=== PATIENT | female | born 1980 | race Caucasian/White ===

== ENCOUNTER 2019-03-10 11:10 | Inpatient (IN) | payer OTHER ==
[2019-03-10 11:58] LABS: ADD MAN DIFF? NO
[2019-03-10 12:00] LABS: WHITE BLOOD COUNT 3.8 10^3/ul (4.8-10.8)
[2019-03-10 12:00] LABS: EOSINOPHILS # 0.1 10^3/ul (0.0-0.5); EOSINOPHILS % 1.8 % (0.0-7.0); HEMATOCRIT 25.6 % (37.0-47.0); HEMOGLOBIN 8.2 g/dl (12.0-16.0); LYMPHOCYTES # 1.5 10^3/ul (0.8-2.9); LYMPHOCYTES % 39.9 % (15.0-51.0); MEAN CORPUSCULAR HEMOGLOBIN 27.6 pg (29.0-33.0); MEAN CORPUSCULAR VOLUME 86.2 fl (82.0-101.0); MEAN PLATELET VOLUME 9.6 fl (7.4-10.4); MONOCYTE # 0.2 10^3/ul (0.3-0.9); MONOCYTES % 4.5 % (0.0-11.0); PLATELET COUNT 235 10^3/UL (140-415); RED BLOOD COUNT 2.97 10^6/ul (4.20-5.40); RED CELL DISTRIBUTION WIDTH 20.4 % (11.5-14.5)
[2019-03-10 12:20] LABS: ALANINE AMINOTRANSFERASE 34 IU/L (13-69); ALBUMIN 1.6 g/dl (3.3-4.9); ALBUMIN/GLOBULIN RATIO 0.29; ALKALINE PHOSPHATASE 190 IU/L (42-121); ANION GAP 1 (5-13); ASPARTATE AMINO TRANSFERASE 28 IU/L (15-46); BILIRUBIN,INDIRECT 0.3 mg/dl (0-1.1); BILIRUBIN,TOTAL 0.3 mg/dl (0.2-1.3); BLOOD UREA NITROGEN 28 mg/dl (7-20); CALCIUM 7.8 mg/dl (8.4-10.2); CARBON DIOXIDE 26 mmol/L (21-31); CHLORIDE 115 mmol/L (97-110); CREATININE 0.63 mg/dl (0.44-1.00); Estimated GFR > 60 mL/min (>60); GLUCOSE 74 mg/dl (70-220); LIPASE 10 U/L (23-300); POTASSIUM 3.8 mmol/L (3.5-5.1); SODIUM 142 mmol/L (135-144); TOTAL PROTEIN 7.1 g/dl (6.1-8.1)
[2019-03-10 12:58] LABS: ADD UMIC YES; UR ASCORBIC ACID NEGATIVE (NEGATIVE); UR BACTERIA MANY /HPF (NONE SEEN); UR BILIRUBIN (Dip) NEGATIVE (NEGATIVE); UR BLOOD (Dip) 1+ mg/dL (NEGATIVE); UR CLARITY CLOUDY (CLEAR); UR COLOR AMBER (YELLOW); UR GLUCOSE (Dip) NEGATIVE (NEGATIVE); UR KETONES (Dip) NEGATIVE (NEGATIVE); UR LEUKOCYTE ESTERASE (Dip) 3+ Leu/ul (NEGATIVE); UR MUCUS MODERATE /HPF (NONE SEEN); UR NITRITE (Dip) POSITIVE (NEGATIVE); UR NONSQUAMOUS EPITHELIAL CELL 1 /HPF (NONE SEEN); UR RBC 4 /HPF (0-5); UR SPECIFIC GRAVITY (Dip) 1.025 (1.003-1.030); UR TOTAL PROTEIN (Dip) 1+ mg/dl (NEGATIVE); UR UROBILINOGEN (Dip) 1+ mg/dL (NEGATIVE); UR WBC 106 /HPF (0-5)
[2019-03-10 13:23] LABS: VALPROATE < 10 ug/ml (50-100)
[2019-03-10] MEDS ORDERED: ACETAMINOPHEN 325 MG TAB PO (14:00)
[2019-03-10] MEDS ORDERED: BISACODYL 10 MG SUPP PR (14:00)
[2019-03-10] MEDS ORDERED: DOCUSATE SODIUM 100 MG CAP PO (14:00)
[2019-03-10] MEDS: CEFEPIME 1GM/50 ML (PMX) 50 ML IVPB (14:10)
[2019-03-10] MEDS: SODIUM CHLORIDE 0.9% 1L BAG IV* (14:10)
[2019-03-10] MEDS: CEFTRIAXONE 1 GM/50 ML (PMX) 50 ML IVPB (14:37)
[2019-03-10] MEDS: DEXTROSE 5%-0.45% NACL 1,000 ML IV (14:38)
[2019-03-10] MEDS: VANCOMYCIN 1 GM (PMX) 250 ML IVPB (15:50)
[2019-03-10] MEDS: VALPROIC ACID LIQUID CUP 250 MG/5 ML CUP PO ×2 (17:17→22:34)
[2019-03-10] MEDS: LEVETIRACETAM 500 MG TAB PO (21:02)
[2019-03-10] MEDS: MEMANTINE 10 MG TAB PO (21:02)
[2019-03-10] MEDS: FAMOTIDINE 20 MG TAB PO (21:02)
[2019-03-10] MEDS: QUETIAPINE 25 MG TAB PO (21:02)
[2019-03-10] MEDS: RISPERIDONE 0.25 MG TAB PO (21:02)
[2019-03-11] MEDS: CLINDAMYCIN 600 MG/D5W (PMX) 50 ML IVPB ×4 (00:39→17:25)
[2019-03-11 02:04] LABS: LACTIC ACID 1.6 mmol/L (0.5-2.0)
[2019-03-11] MEDS: DEXTROSE 5%-0.45% NACL 1,000 ML IV ×2 (03:05→05:32)
[2019-03-11 05:21] LABS: ADD MAN DIFF? NO
[2019-03-11 05:25] LABS: WHITE BLOOD COUNT 3.9 10^3/ul (4.8-10.8)
[2019-03-11 05:25] LABS: BASOPHIL # 0.1 10^3/ul (0.0-0.1); BASOPHILS % 1.3 % (0.0-2.0); EOSINOPHILS # 0.1 10^3/ul (0.0-0.5); EOSINOPHILS % 2.8 % (0.0-7.0); HEMATOCRIT 21.9 % (37.0-47.0); HEMOGLOBIN 7.2 g/dl (12.0-16.0); LYMPHOCYTES # 1.9 10^3/ul (0.8-2.9); LYMPHOCYTES % 49.9 % (15.0-51.0); MEAN CORPUSCULAR HGB CONC 32.9 g/dl (32.0-37.0); MEAN CORPUSCULAR VOLUME 85.2 fl (82.0-101.0); MEAN PLATELET VOLUME 9.7 fl (7.4-10.4); MONOCYTE # 0.3 10^3/ul (0.3-0.9); NEUTROPHIL # 1.5 10^3/ul (1.6-7.5); NEUTROPHILS % 38.2 % (39.0-77.0); PLATELET COUNT 208 10^3/UL (140-415); RED BLOOD COUNT 2.57 10^6/ul (4.20-5.40); RED CELL DISTRIBUTION WIDTH 20.6 % (11.5-14.5)
[2019-03-11] MEDS: VALPROIC ACID LIQUID CUP 250 MG/5 ML CUP PO ×3 (05:31→22:28)
[2019-03-11 05:32] LABS: POSITIVE DIFF @See below
[2019-03-11 05:58] LABS: IRON 29 ug/dl (35-150)
[2019-03-11 06:09] LABS: % IRON SATURATION 37 % SAT (22-52); TOTAL IRON BINDING CAPACITY 79 ug/dl (241-421)
[2019-03-11 06:38] LABS: ALANINE AMINOTRANSFERASE 33 IU/L (13-69); ALBUMIN 1.4 g/dl (3.3-4.9); ALBUMIN/GLOBULIN RATIO 0.29; ALKALINE PHOSPHATASE 155 IU/L (42-121); ANION GAP 3 (5-13); ASPARTATE AMINO TRANSFERASE 23 IU/L (15-46); BILIRUBIN,INDIRECT 0.2 mg/dl (0-1.1); BILIRUBIN,TOTAL 0.2 mg/dl (0.2-1.3); BLOOD UREA NITROGEN 23 mg/dl (7-20); CALCIUM 6.7 mg/dl (8.4-10.2); CARBON DIOXIDE 20 mmol/L (21-31); CHLORIDE 117 mmol/L (97-110); CREATININE 0.59 mg/dl (0.44-1.00); Estimated GFR > 60 mL/min (>60); GLUCOSE 74 mg/dl (70-220); MAGNESIUM 1.4 mg/dl (1.7-2.5); POTASSIUM 3.3 mmol/L (3.5-5.1); SODIUM 140 mmol/L (135-144); TOTAL PROTEIN 6.1 g/dl (6.1-8.1)
[2019-03-11 07:09] LABS: CREATINE KINASE < 20 IU/L (23-200)
[2019-03-11] MEDS: LEVETIRACETAM 500 MG TAB PO ×2 (08:46→21:00)
[2019-03-11] MEDS: FOLIC ACID 1 MG TAB PO (08:46)
[2019-03-11] MEDS: MEMANTINE 10 MG TAB PO ×2 (08:46→21:00)
[2019-03-11] MEDS: FAMOTIDINE 20 MG TAB PO ×2 (08:46→21:00)
[2019-03-11] MEDS: QUETIAPINE 25 MG TAB PO ×2 (08:46→21:00)
[2019-03-11] MEDS: THIAMINE 100 MG TAB PO (08:46)
[2019-03-11] MEDS: RISPERIDONE 0.25 MG TAB PO (08:47)
[2019-03-11] MEDS: ENOXAPARIN 40 MG/0.4 ML SYG SC (09:00)
[2019-03-11] MEDS: D5W-0.45 NACL + KCL 40 MEQ 1,000 ML IV ×2 (10:06→20:25)
[2019-03-11] MEDS: MAGNESIUM SULFATE 4 GM/100 ML 100 ML IVPB (10:07)
[2019-03-11 11:16] LABS: HEMATOCRIT 27.5 % (37.0-47.0); HEMOGLOBIN 8.9 g/dl (12.0-16.0); MEAN CORPUSCULAR HEMOGLOBIN 28.1 pg (29.0-33.0); MEAN CORPUSCULAR HGB CONC 32.4 g/dl (32.0-37.0); MEAN CORPUSCULAR VOLUME 86.8 fl (82.0-101.0); MEAN PLATELET VOLUME 9.2 fl (7.4-10.4); PLATELET COUNT 216 10^3/UL (140-415); RED BLOOD COUNT 3.17 10^6/ul (4.20-5.40); RED CELL DISTRIBUTION WIDTH 20.5 % (11.5-14.5)
[2019-03-11 11:16] LABS: WHITE BLOOD COUNT 6.8 10^3/ul (4.8-10.8)
[2019-03-11 11:20] LABS: ADD MAN DIFF? YES; POSITIVE DIFF @See below
[2019-03-11 12:28] LABS: ANISOCYTOSIS 1+ (0-0); BAND NEUTROPHILS #M 1.9 10^3/ul (0.0-0.6); BAND NEUTROPHILS % (M) 29 % (0-4); BASOPHILS % (M) 1 % (0-2); BURR CELLS 1+ (0-0); EOSINOPHILS % (M) 4 % (0-7); LYMPHOCYTES #M 1.1 10^3/ul (0.8-2.9); LYMPHOCYTES % (M) 17 % (15-51); METAMYELOCYTES %M 1 % (0-0); MONOCYTE #M 0.1 10^3/ul (0.3-0.9); MONOCYTES % (M) 2 % (0-11); OVALOCYTES 1+ (0-0); PLATELET ESTIMATE NORMAL; SEG NEUT #M 3.3 10^3/ul (1.6-7.5); SEGMENTED NEUTROPHILS (M) % 46 % (39-77); SMUDGE%M 171 % (0-0)
[2019-03-11] MEDS: SOD FERRIC GLUC COMPLX 125 MG in SOD CHLORIDE 0.9% 100 ML IVPB (13:11)
[2019-03-11] MEDS: CEFTRIAXONE 1 GM/50 ML (PMX) 50 ML IVPB (14:43)
[2019-03-11] MEDS: SOD CHLORIDE 0.9% 1,000 ML IV (14:52)
[2019-03-11] MEDS ORDERED: SOD CHLORIDE 0.9% 1,000 ML IV (15:00)
[2019-03-11] MEDS: ALBUMIN HUMAN 25% 100 ML IV (15:31)
[2019-03-11 18:43] LABS: OCCULT BLOOD STOOL NEGATIVE (NEGATIVE)
[2019-03-11] MEDS: ASCORBIC ACID 500 MG TAB PO (21:00)
[2019-03-11] MEDS: CEFEPIME 1GM/50 ML (PMX) 50 ML IVPB (21:08)
[2019-03-11] MEDS: BALSAM PERU/CASTOR OIL 60 GM TUBE TOP (21:12)
[2019-03-12] MEDS: CLINDAMYCIN 600 MG/D5W (PMX) 50 ML IVPB ×5 (00:05→23:12)
[2019-03-12] MEDS: D5W-0.45 NACL + KCL 40 MEQ 1,000 ML IV ×3 (04:36→16:34)
[2019-03-12 05:38] LABS: HEMATOCRIT 25.8 % (37.0-47.0); HEMOGLOBIN 8.3 g/dl (12.0-16.0); MEAN CORPUSCULAR HEMOGLOBIN 27.9 pg (29.0-33.0); MEAN CORPUSCULAR HGB CONC 32.2 g/dl (32.0-37.0); MEAN CORPUSCULAR VOLUME 86.6 fl (82.0-101.0); MEAN PLATELET VOLUME 9.7 fl (7.4-10.4); PLATELET COUNT 205 10^3/UL (140-415); RED BLOOD COUNT 2.98 10^6/ul (4.20-5.40); RED CELL DISTRIBUTION WIDTH 20.5 % (11.5-14.5)
[2019-03-12 05:38] LABS: WHITE BLOOD COUNT 3.2 10^3/ul (4.8-10.8)
[2019-03-12 05:47] LABS: POSITIVE DIFF @See below
[2019-03-12 05:48] LABS: ADD MAN DIFF? YES
[2019-03-12] MEDS: VALPROIC ACID LIQUID CUP 250 MG/5 ML CUP PO ×3 (06:00→21:43)
[2019-03-12 06:12] LABS: ALBUMIN 1.9 g/dl (3.3-4.9); ANION GAP 4 (5-13); BLOOD UREA NITROGEN 15 mg/dl (7-20); CALCIUM 6.8 mg/dl (8.4-10.2); CARBON DIOXIDE 24 mmol/L (21-31); CHLORIDE 108 mmol/L (97-110); CREATININE 0.58 mg/dl (0.44-1.00); GLUCOSE 61 mg/dl (70-220); MAGNESIUM 1.9 mg/dl (1.7-2.5); PHOSPHORUS 2.4 mg/dl (2.5-4.9); POTASSIUM 3.9 mmol/L (3.5-5.1); SODIUM 136 mmol/L (135-144)
[2019-03-12 07:50] LABS: ANISOCYTOSIS 1+ (0-0); BAND NEUTROPHILS #M 1.1 10^3/ul (0.0-0.6); BAND NEUTROPHILS % (M) 36 % (0-4); BASOPHILS % (M) 2 % (0-2); BURR CELLS 1+ (0-0); EOSINOPHILS % (M) 7 % (0-7); GIANT THROMBO% (M) 1 % (0-0); LYMPHOCYTES #M 0.2 10^3/ul (0.8-2.9); LYMPHOCYTES % (M) 9 % (15-51); MONOCYTE #M 0.2 10^3/ul (0.3-0.9); MONOCYTES % (M) 7 % (0-11); MYELOCYTES % (M) 1 % (0-0); PLATELET ESTIMATE NORMAL; POIKILOCYTOSIS 3+ (0-0); REACTIVE LYMPHOCYTES% (M) 1 % (0-0); SEG NEUT #M 1.2 10^3/ul (1.6-7.5); SEGMENTED NEUTROPHILS (M) % 37 % (39-77); SMUDGE%M 64 % (0-0)
[2019-03-12] MEDS: MEMANTINE 10 MG TAB PO ×2 (09:04→21:43)
[2019-03-12] MEDS: MULTIVITAMINS THERAPEUTIC TAB PO (09:05)
[2019-03-12] MEDS: FOLIC ACID 1 MG TAB PO (09:05)
[2019-03-12] MEDS: FAMOTIDINE 20 MG TAB PO ×2 (09:05→21:43)
[2019-03-12] MEDS: THIAMINE 100 MG TAB PO (09:05)
[2019-03-12] MEDS: QUETIAPINE 25 MG TAB PO ×2 (09:05→21:43)
[2019-03-12] MEDS: ASCORBIC ACID 500 MG TAB PO ×2 (09:05→21:43)
[2019-03-12] MEDS: LEVETIRACETAM 500 MG TAB PO ×2 (09:05→21:43)
[2019-03-12] MEDS: ZINC SULFATE 220 MG CAP PO (09:05)
[2019-03-12] MEDS: ENOXAPARIN 40 MG/0.4 ML SYG SC (09:06)
[2019-03-12] MEDS: COLLAGENASE 5 GM (UD JAR) TOP (09:12)
[2019-03-12] MEDS: BALSAM PERU/CASTOR OIL 60 GM TUBE TOP ×2 (09:12→21:44)
[2019-03-12] MEDS: CEFEPIME 1GM/50 ML (PMX) 50 ML IVPB ×2 (09:12→21:43)
[2019-03-12] MEDS: SOD FERRIC GLUC COMPLX 125 MG in SOD CHLORIDE 0.9% 100 ML IVPB (13:59)
[2019-03-13] MEDS: D5W-0.45 NACL + KCL 40 MEQ 1,000 ML IV ×2 (02:25→05:34)
[2019-03-13 05:05] LABS: ABNORMAL IP MESSAGE 1; HEMOGLOBIN 8.4 g/dl (12.0-16.0); MEAN CORPUSCULAR HEMOGLOBIN 27.9 pg (29.0-33.0); MEAN CORPUSCULAR HGB CONC 33.6 g/dl (32.0-37.0); MEAN CORPUSCULAR VOLUME 83.1 fl (82.0-101.0); MEAN PLATELET VOLUME 9.4 fl (7.4-10.4); PLATELET COUNT 185 10^3/UL (140-415); RED BLOOD COUNT 3.01 10^6/ul (4.20-5.40)
[2019-03-13 05:05] LABS: WHITE BLOOD COUNT 2.7 10^3/ul (4.8-10.8)
[2019-03-13 05:07] LABS: ADD MAN DIFF? YES; POSITIVE DIFF @See below
[2019-03-13 05:26] LABS: ALBUMIN 1.9 g/dl (3.3-4.9); ANION GAP 3 (5-13); BLOOD UREA NITROGEN 12 mg/dl (7-20); CARBON DIOXIDE 21 mmol/L (21-31); CHLORIDE 107 mmol/L (97-110); CREATININE 0.46 mg/dl (0.44-1.00); GLUCOSE 77 mg/dl (70-220); MAGNESIUM 1.6 mg/dl (1.7-2.5); PHOSPHORUS 2.5 mg/dl (2.5-4.9); POTASSIUM 4.8 mmol/L (3.5-5.1); SODIUM 131 mmol/L (135-144)
[2019-03-13] MEDS: CLINDAMYCIN 600 MG/D5W (PMX) 50 ML IVPB ×3 (05:35→17:17)
[2019-03-13] MEDS: VALPROIC ACID LIQUID CUP 250 MG/5 ML CUP PO ×3 (05:35→20:28)
[2019-03-13 08:19] LABS: ANISOCYTOSIS 3+ (0-0); BAND NEUTROPHILS #M 0.6 10^3/ul (0.0-0.6); BAND NEUTROPHILS % (M) 23 % (0-4); BASOPHIL #M 0.1 10^3/ul (0.0-0.0); BASOPHILS % (M) 6 % (0-2); BURR CELLS 2+ (0-0); EOSINOPHILS % (M) 3 % (0-7); GIANT THROMBO% (M) 2 % (0-0); LYMPHOCYTES #M 0.7 10^3/ul (0.8-2.9); LYMPHOCYTES % (M) 29 % (15-51); MICROCYTOSIS 1+ (0-0); MONOCYTE #M 0.1 10^3/ul (0.3-0.9); MONOCYTES % (M) 7 % (0-11); PLATELET ESTIMATE NORMAL; POIKILOCYTOSIS 3+ (0-0); POLYCHROMASIA 3+ (0-0); PROMYELOCYTES % (M) 1 % (0-0); SEG NEUT #M 0.9 10^3/ul (1.6-7.5); SEGMENTED NEUTROPHILS (M) % 31 % (39-77); SMUDGE%M 63 % (0-0); TARGET CELLS 1+ (0-0)
[2019-03-13] MEDS: CEFEPIME 1GM/50 ML (PMX) 50 ML IVPB ×2 (08:57→21:43)
[2019-03-13] MEDS: SOD CHLORIDE 0.9% 1,000 ML IV ×2 (08:57→21:20)
[2019-03-13] MEDS ORDERED: MUPIROCIN 2% 22 GM OINT TOP (09:00)
[2019-03-13] MEDS: THIAMINE 100 MG TAB PO (09:02)
[2019-03-13] MEDS: MEMANTINE 10 MG TAB PO ×2 (09:02→20:44)
[2019-03-13] MEDS: FAMOTIDINE 20 MG TAB PO ×2 (09:02→20:44)
[2019-03-13] MEDS: FOLIC ACID 1 MG TAB PO (09:02)
[2019-03-13] MEDS: LEVETIRACETAM 500 MG TAB PO ×2 (09:02→20:44)
[2019-03-13] MEDS: ASCORBIC ACID 500 MG TAB PO ×2 (09:03→20:44)
[2019-03-13] MEDS: MUPIROCIN 2% 22 GM OINT TOP ×2 (09:03→20:29)
[2019-03-13] MEDS: MULTIVITAMINS THERAPEUTIC TAB PO (09:03)
[2019-03-13] MEDS: COLLAGENASE 5 GM (UD JAR) TOP (09:03)
[2019-03-13] MEDS: BALSAM PERU/CASTOR OIL 60 GM TUBE TOP ×2 (09:03→20:29)
[2019-03-13] MEDS: ZINC SULFATE 220 MG CAP PO (09:03)
[2019-03-13] MEDS: QUETIAPINE 25 MG TAB PO ×2 (09:03→20:44)
[2019-03-13] MEDS: ENOXAPARIN 40 MG/0.4 ML SYG SC (09:05)
[2019-03-13] MEDS: MAGNESIUM SULFATE 2 GM/50 ML 50 ML IVPB (10:06)
[2019-03-13] MEDS: NACL 0.9% 3 ML SYG IV (12:36)
[2019-03-13] MEDS: METHYLPREDNISOLONE 40 MG INJ IV ×2 (12:47→20:28)
[2019-03-13] MEDS: SOD FERRIC GLUC COMPLX 125 MG in SOD CHLORIDE 0.9% 100 ML IVPB (14:19)
[2019-03-13] MEDS: SOD CHLORIDE 0.9% 500 ML IV (20:26)
[2019-03-14] MEDS: CLINDAMYCIN 600 MG/D5W (PMX) 50 ML IVPB ×4 (00:06→17:58)
[2019-03-14 05:27] LABS: ADD MAN DIFF? NO
[2019-03-14] MEDS: SOD CHLORIDE 0.9% 1,000 ML IV (05:38)
[2019-03-14 05:57] LABS: ALBUMIN 1.8 g/dl (3.3-4.9); ANION GAP 3 (5-13); BLOOD UREA NITROGEN 15 mg/dl (7-20); CALCIUM 6.9 mg/dl (8.4-10.2); CARBON DIOXIDE 18 mmol/L (21-31); CHLORIDE 108 mmol/L (97-110); CREATININE 0.47 mg/dl (0.44-1.00); GLUCOSE 90 mg/dl (70-220); PHOSPHORUS 4.2 mg/dl (2.5-4.9); POTASSIUM 4.8 mmol/L (3.5-5.1); SODIUM 129 mmol/L (135-144)
[2019-03-14 06:44] LABS: WHITE BLOOD COUNT 3.2 10^3/ul (4.8-10.8)
[2019-03-14 06:44] LABS: BASOPHILS % 0.6 % (0.0-2.0); EOSINOPHILS % 0.3 % (0.0-7.0); HEMATOCRIT 25.7 % (37.0-47.0); HEMOGLOBIN 8.6 g/dl (12.0-16.0); LYMPHOCYTES # 1.5 10^3/ul (0.8-2.9); LYMPHOCYTES % 47.3 % (15.0-51.0); MEAN CORPUSCULAR HEMOGLOBIN 27.8 pg (29.0-33.0); MEAN CORPUSCULAR HGB CONC 33.5 g/dl (32.0-37.0); MEAN CORPUSCULAR VOLUME 83.2 fl (82.0-101.0); MEAN PLATELET VOLUME 9.8 fl (7.4-10.4); MONOCYTE # 0.1 10^3/ul (0.3-0.9); MONOCYTES % 2.2 % (0.0-11.0); NEUTROPHIL # 1.5 10^3/ul (1.6-7.5); PLATELET COUNT 183 10^3/UL (140-415); RED BLOOD COUNT 3.09 10^6/ul (4.20-5.40); RED CELL DISTRIBUTION WIDTH 20.1 % (11.5-14.5)
[2019-03-14] MEDS: SOD CHLORIDE 0.9% 500 ML IV (08:49)
[2019-03-14] MEDS: LEVETIRACETAM 500 MG TAB PO ×2 (08:51→20:54)
[2019-03-14] MEDS: ZINC SULFATE 220 MG CAP PO (08:52)
[2019-03-14] MEDS: METHYLPREDNISOLONE 40 MG INJ IV ×2 (08:52→20:54)
[2019-03-14] MEDS: QUETIAPINE 25 MG TAB PO ×2 (08:52→20:54)
[2019-03-14] MEDS: VALPROIC ACID LIQUID CUP 250 MG/5 ML CUP PO ×2 (08:52→20:54)
[2019-03-14] MEDS: FAMOTIDINE 20 MG TAB PO ×2 (08:52→20:54)
[2019-03-14] MEDS: ASCORBIC ACID 500 MG TAB PO ×2 (08:52→20:55)
[2019-03-14] MEDS: MEMANTINE 10 MG TAB PO ×2 (08:52→20:54)
[2019-03-14] MEDS: MULTIVITAMINS THERAPEUTIC TAB PO (08:52)
[2019-03-14] MEDS: FOLIC ACID 1 MG TAB PO (08:52)
[2019-03-14] MEDS: THIAMINE 100 MG TAB PO (08:52)
[2019-03-14] MEDS: COLLAGENASE 5 GM (UD JAR) TOP (08:53)
[2019-03-14] MEDS: ENOXAPARIN 40 MG/0.4 ML SYG SC (08:53)
[2019-03-14] MEDS: BALSAM PERU/CASTOR OIL 60 GM TUBE TOP ×2 (08:54→20:55)
[2019-03-14] MEDS: MUPIROCIN 2% 22 GM OINT TOP ×2 (08:54→20:55)
[2019-03-14] MEDS: CEFEPIME 1GM/50 ML (PMX) 50 ML IVPB ×2 (09:50→20:55)
[2019-03-14] MEDS: DEXTROSE 5%-0.9% NACL 1,000 ML IV ×2 (09:51→21:50)
[2019-03-14] MEDS: MEGESTROL (40 MG/ML) 10ML CUP PO ×2 (12:32→20:54)
[2019-03-14] MEDS: ALBUMIN HUMAN 25% 100 ML IV ×2 (15:49→23:49)
[2019-03-14] MEDS: SOD FERRIC GLUC COMPLX 125 MG in SOD CHLORIDE 0.9% 100 ML IVPB (16:56)
[2019-03-15] MEDS: CLINDAMYCIN 600 MG/D5W (PMX) 50 ML IVPB ×4 (01:38→17:01)
[2019-03-15 06:19] LABS: ABNORMAL IP MESSAGE 1; MEAN CORPUSCULAR HEMOGLOBIN 27.6 pg (29.0-33.0); MEAN CORPUSCULAR HGB CONC 31.8 g/dl (32.0-37.0); MEAN CORPUSCULAR VOLUME 86.6 fl (82.0-101.0); MEAN PLATELET VOLUME 10.2 fl (7.4-10.4); PLATELET COUNT 172 10^3/UL (140-415); RED BLOOD COUNT 2.54 10^6/ul (4.20-5.40); RED CELL DISTRIBUTION WIDTH 20.5 % (11.5-14.5)
[2019-03-15 06:19] LABS: WHITE BLOOD COUNT 2.1 10^3/ul (4.8-10.8)
[2019-03-15 06:23] LABS: POSITIVE DIFF @See below
[2019-03-15 06:24] LABS: ADD MAN DIFF? YES; PATH REVIEW? YES
[2019-03-15] MEDS: ALBUMIN HUMAN 25% 100 ML IV (06:49)
[2019-03-15 07:03] LABS: ALBUMIN 2.2 g/dl (3.3-4.9); ANION GAP 6 (5-13); BLOOD UREA NITROGEN 17 mg/dl (7-20); CALCIUM 7.2 mg/dl (8.4-10.2); CARBON DIOXIDE 21 mmol/L (21-31); CHLORIDE 108 mmol/L (97-110); CREATININE 0.55 mg/dl (0.44-1.00); GLUCOSE 114 mg/dl (70-220); MAGNESIUM 1.7 mg/dl (1.7-2.5); PHOSPHORUS 3.2 mg/dl (2.5-4.9); POTASSIUM 4.1 mmol/L (3.5-5.1); SODIUM 135 mmol/L (135-144)
[2019-03-15] MEDS: LEVETIRACETAM 500 MG TAB PO ×2 (08:45→20:20)
[2019-03-15] MEDS: VALPROIC ACID LIQUID CUP 250 MG/5 ML CUP PO ×2 (08:45→20:20)
[2019-03-15] MEDS: ZINC SULFATE 220 MG CAP PO (08:45)
[2019-03-15] MEDS: MEGESTROL (40 MG/ML) 10ML CUP PO ×3 (08:45→20:20)
[2019-03-15] MEDS: MEMANTINE 10 MG TAB PO ×2 (08:46→20:20)
[2019-03-15] MEDS: FOLIC ACID 1 MG TAB PO (08:46)
[2019-03-15] MEDS: METHYLPREDNISOLONE 40 MG INJ IV ×2 (08:46→20:20)
[2019-03-15] MEDS: ASCORBIC ACID 500 MG TAB PO ×2 (08:46→20:20)
[2019-03-15] MEDS: QUETIAPINE 25 MG TAB PO ×2 (08:46→20:20)
[2019-03-15] MEDS: THIAMINE 100 MG TAB PO (08:46)
[2019-03-15] MEDS: BALSAM PERU/CASTOR OIL 60 GM TUBE TOP ×2 (08:46→20:21)
[2019-03-15] MEDS: COLLAGENASE 5 GM (UD JAR) TOP (08:46)
[2019-03-15] MEDS: MULTIVITAMINS THERAPEUTIC TAB PO (08:46)
[2019-03-15] MEDS: FAMOTIDINE 20 MG TAB PO ×2 (08:46→20:20)
[2019-03-15] MEDS: MUPIROCIN 2% 22 GM OINT TOP ×2 (08:47→20:21)
[2019-03-15] MEDS: ENOXAPARIN 40 MG/0.4 ML SYG SC (08:48)
[2019-03-15] MEDS: CEFEPIME 1GM/50 ML (PMX) 50 ML IVPB ×2 (09:08→21:13)
[2019-03-15 09:36] LABS: ANISOCYTOSIS 1+ (0-0); BAND NEUTROPHILS % (M) 4 % (0-4); BURR CELLS 1+ (0-0); GIANT THROMBO% (M) 1 % (0-0); LYMPHOCYTES #M 0.3 10^3/ul (0.8-2.9); LYMPHOCYTES % (M) 19 % (15-51); MONOCYTES % (M) 3 % (0-11); MYELOCYTES % (M) 1 % (0-0); PLATELET ESTIMATE NORMAL; POLYCHROMASIA 1+ (0-0); REACTIVE LYMPHOCYTES% (M) 1 % (0-0); SEG NEUT #M 1.5 10^3/ul (1.6-7.5); SEGMENTED NEUTROPHILS (M) % 72 % (39-77); SMUDGE%M 68 % (0-0)
[2019-03-15 11:23] LABS: HEMOGLOBIN 6.4 g/dl (12.0-16.0)
[2019-03-15] MEDS: DEXTROSE 5%-0.9% NACL 1,000 ML IV (11:26)
[2019-03-15] MEDS: MAGNESIUM SULFATE 2 GM/50 ML 50 ML IVPB (11:31)
[2019-03-15] MEDS: SOD CHLORIDE 0.9% 250 ML IV* (11:43)
[2019-03-15] MEDS: SOD FERRIC GLUC COMPLX 125 MG in SOD CHLORIDE 0.9% 100 ML IVPB (14:10)
[2019-03-15] MEDS: SOD CHLORIDE 0.9% 500 ML IV ×2 (15:21→20:13)
[2019-03-15 23:17] LABS: IMMEDIATE SPIN CROSSMATCH 1 2
[2019-03-16] MEDS: CLINDAMYCIN 600 MG/D5W (PMX) 50 ML IVPB ×4 (00:01→17:46)
[2019-03-16] MEDS: DEXTROSE 5%-0.9% NACL 1,000 ML IV ×2 (00:30→13:50)
[2019-03-16] MEDS: ATROPINE 1 MG/10 ML SYRINGE IV ×2 (00:43→04:42)
[2019-03-16 01:29] LABS: ANION GAP 5 (5-13); BLOOD UREA NITROGEN 13 mg/dl (7-20); CALCIUM 7.3 mg/dl (8.4-10.2); CARBON DIOXIDE 19 mmol/L (21-31); CHLORIDE 111 mmol/L (97-110); CREATININE 0.42 mg/dl (0.44-1.00); Estimated GFR > 60 mL/min (>60); GLUCOSE 87 mg/dl (70-220); POTASSIUM 3.9 mmol/L (3.5-5.1); SODIUM 135 mmol/L (135-144)
[2019-03-16] MEDS: MAGNESIUM SULFATE 2 GM/50 ML 50 ML IVPB (02:13)
[2019-03-16 06:26] LABS: ABNORMAL IP MESSAGE 1; HEMATOCRIT 32.1 % (37.0-47.0); HEMOGLOBIN 10.8 g/dl (12.0-16.0); MEAN CORPUSCULAR HGB CONC 33.6 g/dl (32.0-37.0); MEAN CORPUSCULAR VOLUME 83.2 fl (82.0-101.0); MEAN PLATELET VOLUME 9.7 fl (7.4-10.4); PLATELET COUNT 157 10^3/UL (140-415); RED BLOOD COUNT 3.86 10^6/ul (4.20-5.40); RED CELL DISTRIBUTION WIDTH 17.7 % (11.5-14.5)
[2019-03-16 06:26] LABS: WHITE BLOOD COUNT 1.9 10^3/ul (4.8-10.8)
[2019-03-16 06:33] LABS: ADD MAN DIFF? YES; POSITIVE DIFF @See below
[2019-03-16 06:50] LABS: ALBUMIN 2.2 g/dl (3.3-4.9); ANION GAP 4 (5-13); BLOOD UREA NITROGEN 12 mg/dl (7-20); CALCIUM 7.3 mg/dl (8.4-10.2); CARBON DIOXIDE 21 mmol/L (21-31); CHLORIDE 112 mmol/L (97-110); CREATININE 0.42 mg/dl (0.44-1.00); GLUCOSE 94 mg/dl (70-220); MAGNESIUM 2.6 mg/dl (1.7-2.5); PHOSPHORUS 1.9 mg/dl (2.5-4.9); POTASSIUM 3.7 mmol/L (3.5-5.1); SODIUM 137 mmol/L (135-144)
[2019-03-16 07:49] LABS: BAND NEUTROPHILS #M 0.2 10^3/ul (0.0-0.6); BAND NEUTROPHILS % (M) 11 % (0-4); BASOPHILS % (M) 1 % (0-2); BURR CELLS 1+ (0-0); HYPOCHROMASIA 1+ (0-0); LYMPHOCYTES #M 0.7 10^3/ul (0.8-2.9); LYMPHOCYTES % (M) 42 % (15-51); MONOCYTES % (M) 3 % (0-11); PLATELET ESTIMATE NORMAL; POLYCHROMASIA 1+ (0-0); REACTIVE LYMPHOCYTES% (M) 2 % (0-0); SEG NEUT #M 0.8 10^3/ul (1.6-7.5); SEGMENTED NEUTROPHILS (M) % 40 % (39-77); SMUDGE%M 20 % (0-0)
[2019-03-16] MEDS: FAMOTIDINE 20 MG TAB PO ×3 (09:00→22:24)
[2019-03-16] MEDS: MEMANTINE 10 MG TAB PO ×3 (09:00→22:24)
[2019-03-16] MEDS: CEFEPIME 1GM/50 ML (PMX) 50 ML IVPB ×2 (09:15→22:21)
[2019-03-16] MEDS: THIAMINE 100 MG TAB PO (09:18)
[2019-03-16] MEDS: ASCORBIC ACID 500 MG TAB PO ×2 (09:18→22:24)
[2019-03-16] MEDS: MULTIVITAMINS THERAPEUTIC TAB PO (09:18)
[2019-03-16] MEDS: QUETIAPINE 25 MG TAB PO ×2 (09:18→22:24)
[2019-03-16] MEDS: METHYLPREDNISOLONE 40 MG INJ IV (09:18)
[2019-03-16] MEDS: MEGESTROL (40 MG/ML) 10ML CUP PO ×5 (09:18→22:23)
[2019-03-16] MEDS: VALPROIC ACID LIQUID CUP 250 MG/5 ML CUP PO ×3 (09:18→22:23)
[2019-03-16] MEDS: FOLIC ACID 1 MG TAB PO (09:18)
[2019-03-16] MEDS: ZINC SULFATE 220 MG CAP PO (09:18)
[2019-03-16] MEDS: LEVETIRACETAM 500 MG TAB PO ×2 (09:19→22:23)
[2019-03-16] MEDS: COLLAGENASE 5 GM (UD JAR) TOP (09:19)
[2019-03-16] MEDS: MUPIROCIN 2% 22 GM OINT TOP ×2 (09:20→22:26)
[2019-03-16] MEDS: BALSAM PERU/CASTOR OIL 60 GM TUBE TOP ×2 (09:20→22:25)
[2019-03-16] MEDS: POTASSIUM PHOSPHATE 40 MEQ in SOD CHLORIDE 0.9% 250 ML IVPB (10:16)
[2019-03-16 12:30] LABS: VALPROATE 34 ug/ml (50-100)
[2019-03-17] MEDS: CLINDAMYCIN 600 MG/D5W (PMX) 50 ML IVPB ×4 (02:30→17:13)
[2019-03-17] MEDS: ATROPINE 1 MG/10 ML SYRINGE IV (02:31)
[2019-03-17] MEDS: DEXTROSE 5%-0.9% NACL 1,000 ML IV ×2 (03:10→15:36)
[2019-03-17] MEDS: VALPROIC ACID LIQUID CUP 250 MG/5 ML CUP PO (05:29)
[2019-03-17] MEDS: MEGESTROL (40 MG/ML) 10ML CUP PO ×3 (08:50→21:46)
[2019-03-17] MEDS: MULTIVITAMINS THERAPEUTIC TAB PO (08:50)
[2019-03-17] MEDS: ZINC SULFATE 220 MG CAP PO (08:50)
[2019-03-17] MEDS: QUETIAPINE 25 MG TAB PO ×2 (08:50→21:47)
[2019-03-17] MEDS: MEMANTINE 10 MG TAB PO ×2 (08:50→21:54)
[2019-03-17] MEDS: ASCORBIC ACID 500 MG TAB PO ×2 (08:50→21:47)
[2019-03-17] MEDS: FOLIC ACID 1 MG TAB PO (08:50)
[2019-03-17] MEDS: THIAMINE 100 MG TAB PO (08:50)
[2019-03-17] MEDS: LEVETIRACETAM 500 MG TAB PO ×2 (08:50→21:47)
[2019-03-17] MEDS: FAMOTIDINE 20 MG TAB PO ×2 (08:50→21:47)
[2019-03-17] MEDS: MUPIROCIN 2% 22 GM OINT TOP ×2 (08:51→21:55)
[2019-03-17] MEDS: COLLAGENASE 5 GM (UD JAR) TOP (08:51)
[2019-03-17] MEDS: CEFEPIME 1GM/50 ML (PMX) 50 ML IVPB ×2 (08:52→21:46)
[2019-03-17] MEDS: BALSAM PERU/CASTOR OIL 60 GM TUBE TOP ×2 (08:52→21:54)
[2019-03-17 16:40] LABS: WHITE BLOOD COUNT 2.2 10^3/ul (4.8-10.8)
[2019-03-17 16:40] LABS: ABNORMAL IP MESSAGE 1; HEMATOCRIT 31.7 % (37.0-47.0); HEMOGLOBIN 10.4 g/dl (12.0-16.0); MEAN CORPUSCULAR HGB CONC 32.8 g/dl (32.0-37.0); MEAN CORPUSCULAR VOLUME 85.4 fl (82.0-101.0); MEAN PLATELET VOLUME 9.4 fl (7.4-10.4); PLATELET COUNT 119 10^3/UL (140-415); RED BLOOD COUNT 3.71 10^6/ul (4.20-5.40); RED CELL DISTRIBUTION WIDTH 18.9 % (11.5-14.5)
[2019-03-17 16:41] LABS: ADD MAN DIFF? YES; POSITIVE DIFF @See below
[2019-03-17 16:55] LABS: ALBUMIN 1.9 g/dl (3.3-4.9); ANION GAP 1 (5-13); BLOOD UREA NITROGEN 16 mg/dl (7-20); CARBON DIOXIDE 21 mmol/L (21-31); CHLORIDE 113 mmol/L (97-110); CREATININE 0.42 mg/dl (0.44-1.00); GLUCOSE 68 mg/dl (70-220); MAGNESIUM 2.1 mg/dl (1.7-2.5); PHOSPHORUS 1.6 mg/dl (2.5-4.9); SODIUM 135 mmol/L (135-144)
[2019-03-17 17:01] LABS: PROTIME 19.1 Sec (11.9-14.9); PT RATIO 1.5
[2019-03-17 17:01] LABS: VALPROATE 13 ug/ml (50-100)
[2019-03-17 17:26] LABS: BAND NEUTROPHILS % (M) 3 % (0-4); BASOPHILS % (M) 2 % (0-2); BURR CELLS 3+ (0-0); GIANT THROMBO% (M) 1 % (0-0); LYMPHOCYTES #M 0.9 10^3/ul (0.8-2.9); LYMPHOCYTES % (M) 45 % (15-51); MONOCYTE #M 0.3 10^3/ul (0.3-0.9); MONOCYTES % (M) 14 % (0-11); OVALOCYTES 1+ (0-0); PLATELET ESTIMATE DECREASED; POIKILOCYTOSIS 3+ (0-0); REACTIVE LYMPHOCYTES% (M) 2 % (0-0); SEG NEUT #M 0.7 10^3/ul (1.6-7.5); SEGMENTED NEUTROPHILS (M) % 34 % (39-77); SMUDGE%M 98 % (0-0); TEAR DROP CELLS 1+ (0-0)
[2019-03-17] MEDS: SOD CHLORIDE 0.9% 100 ML (17:43)
[2019-03-17] MEDS: IOHEXOL 300MG/ML 150 ML BTL (17:43)
[2019-03-18] MEDS: CLINDAMYCIN 600 MG/D5W (PMX) 50 ML IVPB ×3 (01:38→11:21)
[2019-03-18 07:05] LABS: WHITE BLOOD COUNT 2.4 10^3/ul (4.8-10.8)
[2019-03-18 07:05] LABS: HEMATOCRIT 33.9 % (37.0-47.0); HEMOGLOBIN 10.7 g/dl (12.0-16.0); MEAN CORPUSCULAR HEMOGLOBIN 27.5 pg (29.0-33.0); MEAN CORPUSCULAR HGB CONC 31.6 g/dl (32.0-37.0); MEAN CORPUSCULAR VOLUME 87.1 fl (82.0-101.0); RED BLOOD COUNT 3.89 10^6/ul (4.20-5.40); RED CELL DISTRIBUTION WIDTH 19.2 % (11.5-14.5)
[2019-03-18 07:06] LABS: ABNORMAL IP MESSAGE 1; MEAN PLATELET VOLUME 9.7 fl (7.4-10.4); PLATELET COUNT 112 10^3/UL (140-415)
[2019-03-18 07:11] LABS: POSITIVE DIFF @See below
[2019-03-18 07:12] LABS: ADD MAN DIFF? NO
[2019-03-18 07:27] LABS: IRON 44 ug/dl (35-150)
[2019-03-18 07:29] LABS: LACTATE DEHYDROGENASE 364 IU/L (313-618)
[2019-03-18 07:29] LABS: URIC ACID 4.4 mg/dl (3.1-7.9)
[2019-03-18 07:33] LABS: ANION GAP 0 (5-13); BLOOD UREA NITROGEN 15 mg/dl (7-20); CALCIUM 7.1 mg/dl (8.4-10.2); CARBON DIOXIDE 25 mmol/L (21-31); CHLORIDE 112 mmol/L (97-110); CREATININE 0.44 mg/dl (0.44-1.00); Estimated GFR > 60 mL/min (>60); GLUCOSE 58 mg/dl (70-220); MAGNESIUM 1.9 mg/dl (1.7-2.5); PHOSPHORUS 1.4 mg/dl (2.5-4.9); POTASSIUM 4.1 mmol/L (3.5-5.1); SODIUM 137 mmol/L (135-144)
[2019-03-18 07:45] LABS: % IRON SATURATION 47 % SAT (22-52)
[2019-03-18 08:01] LABS: TOTAL IRON BINDING CAPACITY 94 ug/dl (241-421)
[2019-03-18 08:02] LABS: ALPHA FETOPROTEIN 1.26 IU/L (0.00-7.21)
[2019-03-18 08:52] LABS: FOLATE > 20.0 ng/ml (2.8-20.0)
[2019-03-18] MEDS: LEVETIRACETAM 500 MG TAB PO ×2 (09:00→21:37)
[2019-03-18] MEDS: ZINC SULFATE 220 MG CAP PO (09:00)
[2019-03-18] MEDS: MULTIVITAMINS THERAPEUTIC TAB PO (09:00)
[2019-03-18] MEDS: THIAMINE 100 MG TAB PO (09:00)
[2019-03-18] MEDS: MEGESTROL (40 MG/ML) 10ML CUP PO ×3 (09:00→21:38)
[2019-03-18] MEDS: FOLIC ACID 1 MG TAB PO (09:00)
[2019-03-18] MEDS: MEMANTINE 10 MG TAB PO ×2 (09:00→21:38)
[2019-03-18] MEDS: FAMOTIDINE 20 MG TAB PO ×2 (09:00→21:38)
[2019-03-18] MEDS: QUETIAPINE 25 MG TAB PO ×2 (09:00→21:38)
[2019-03-18] MEDS: DEXTROSE 5%-0.9% NACL 1,000 ML IV ×2 (09:00→23:02)
[2019-03-18] MEDS: ASCORBIC ACID 500 MG TAB PO ×2 (09:00→21:37)
[2019-03-18] MEDS: MUPIROCIN 2% 22 GM OINT TOP ×2 (09:01→21:39)
[2019-03-18] MEDS: CEFEPIME 1GM/50 ML (PMX) 50 ML IVPB ×2 (09:01→21:36)
[2019-03-18] MEDS: COLLAGENASE 5 GM (UD JAR) TOP (09:01)
[2019-03-18] MEDS: BALSAM PERU/CASTOR OIL 60 GM TUBE TOP ×2 (09:02→22:07)
[2019-03-18] MEDS: SODIUM PHOSPHATE 15 MMOL in SOD CHLORIDE 0.9% 250 ML IVPB (12:23)
[2019-03-18] MEDS: PROPOFOL 20 ML (23:01)
[2019-03-18] MEDS: GLYCOPYRROLATE 0.4 MG INJ (23:02)
[2019-03-18 23:29] LABS: CANCER ANTIGEN 125 94.5 U/ml (0.0-35.0)
[2019-03-18 23:46] LABS: HIV 1&2 ANTIBODY REACTIVE (NEGATIVE)
[2019-03-19 07:24] LABS: ABNORMAL IP MESSAGE 1; HEMATOCRIT 34.3 % (37.0-47.0); HEMOGLOBIN 11.3 g/dl (12.0-16.0); MEAN CORPUSCULAR HEMOGLOBIN 28.3 pg (29.0-33.0); MEAN CORPUSCULAR HGB CONC 32.9 g/dl (32.0-37.0); MEAN PLATELET VOLUME 10.5 fl (7.4-10.4); RED BLOOD COUNT 3.99 10^6/ul (4.20-5.40); RED CELL DISTRIBUTION WIDTH 18.5 % (11.5-14.5)
[2019-03-19 07:24] LABS: WHITE BLOOD COUNT 3.7 10^3/ul (4.8-10.8)
[2019-03-19 07:28] LABS: PLATELET COUNT 54 10^3/UL (140-415); POSITIVE DIFF @See below
[2019-03-19 07:29] LABS: ADD MAN DIFF? YES
[2019-03-19 07:52] LABS: ANION GAP 2 (5-13); BLOOD UREA NITROGEN 15 mg/dl (7-20); CALCIUM 6.9 mg/dl (8.4-10.2); CARBON DIOXIDE 22 mmol/L (21-31); CHLORIDE 112 mmol/L (97-110); CREATININE 0.41 mg/dl (0.44-1.00); Estimated GFR > 60 mL/min (>60); GLUCOSE 63 mg/dl (70-220); MAGNESIUM 1.6 mg/dl (1.7-2.5); PHOSPHORUS 1.8 mg/dl (2.5-4.9); POTASSIUM 4.1 mmol/L (3.5-5.1); SODIUM 136 mmol/L (135-144)
[2019-03-19] MEDS: CEFEPIME 1GM/50 ML (PMX) 50 ML IVPB ×2 (08:27→21:05)
[2019-03-19] MEDS: DEXTROSE 5%-0.9% NACL 1,000 ML IV (08:28)
[2019-03-19] MEDS: MUPIROCIN 2% 22 GM OINT TOP ×2 (08:28→21:37)
[2019-03-19] MEDS: COLLAGENASE 5 GM (UD JAR) TOP (08:29)
[2019-03-19] MEDS: BALSAM PERU/CASTOR OIL 60 GM TUBE TOP ×2 (09:00→21:37)
[2019-03-19] MEDS: FAMOTIDINE 20 MG TAB PO (09:00)
[2019-03-19] MEDS: ZINC SULFATE 220 MG CAP PO (09:00)
[2019-03-19] MEDS: MULTIVITAMINS THERAPEUTIC TAB PO (09:00)
[2019-03-19] MEDS: MEMANTINE 10 MG TAB PO ×2 (09:00→21:06)
[2019-03-19] MEDS: FOLIC ACID 1 MG TAB PO (09:00)
[2019-03-19] MEDS: MEGESTROL (40 MG/ML) 10ML CUP PO ×2 (09:00→13:00)
[2019-03-19] MEDS: ASCORBIC ACID 500 MG TAB PO ×2 (09:00→21:06)
[2019-03-19] MEDS: THIAMINE 100 MG TAB PO (09:00)
[2019-03-19] MEDS: QUETIAPINE 25 MG TAB PO ×2 (09:00→21:06)
[2019-03-19 10:30] LABS: ANISOCYTOSIS 1+ (0-0); BAND NEUTROPHILS #M 0.4 10^3/ul (0.0-0.6); BAND NEUTROPHILS % (M) 13 % (0-4); BASOPHIL #M 0.1 10^3/ul (0.0-0.0); BASOPHILS % (M) 5 % (0-2); EOSINOPHILS % (M) 3 % (0-7); LYMPHOCYTES #M 0.7 10^3/ul (0.8-2.9); LYMPHOCYTES % (M) 20 % (15-51); MICROCYTOSIS 1+ (0-0); MONOCYTE #M 0.3 10^3/ul (0.3-0.9); MONOCYTES % (M) 9 % (0-11); MYELOCYTES % (M) 1 % (0-0); PLATELET ESTIMATE DECREASED; PLATELET MORPHOLOGY COMMENT @See below; SEG NEUT #M 1.8 10^3/ul (1.6-7.5); SEGMENTED NEUTROPHILS (M) % 49 % (39-77); SMUDGE%M 48 % (0-0)
[2019-03-19 11:02] LABS: HAPTOGLOBIN 18 mg/dL (43-212)
[2019-03-19] MEDS: LEVETIRACETAM 500 MG TAB PO ×2 (11:34→21:06)
[2019-03-19 11:48] LABS: PROTEIN, TOTAL 6.5 g/dL (6.1-8.1)
[2019-03-19 15:47] LABS: ALBUMIN 2.1 g/dL (3.8-4.8); ALPHA-1-GLOBULINS 0.2 g/dL (0.2-0.3); ALPHA-2-GLOBULINS 0.4 g/dL (0.5-0.9); BETA 2 GLOBULINS 0.5 g/dL (0.2-0.5); BETA GLOBULINS 0.3 g/dL (0.4-0.6); GAMMA GLOBULINS 3.2 g/dL (0.8-1.7)
[2019-03-19 20:32] LABS: ERYTHROPOIETIN 2.9 mIU/mL (2.6-18.5)
[2019-03-20] MEDS: LANSOPRAZOLE 15 MG CAP GTB (06:14)
[2019-03-20 08:09] LABS: ADD MAN DIFF? NO
[2019-03-20 08:19] LABS: BASOPHIL # 0.1 10^3/ul (0.0-0.1); BASOPHILS % 1.6 % (0.0-2.0); EOSINOPHILS # 0.1 10^3/ul (0.0-0.5); EOSINOPHILS % 2.5 % (0.0-7.0); HEMATOCRIT 30.5 % (37.0-47.0); HEMOGLOBIN 10.1 g/dl (12.0-16.0); LYMPHOCYTES # 1.4 10^3/ul (0.8-2.9); LYMPHOCYTES % 37.8 % (15.0-51.0); MEAN CORPUSCULAR HEMOGLOBIN 28.5 pg (29.0-33.0); MEAN CORPUSCULAR HGB CONC 33.1 g/dl (32.0-37.0); MEAN CORPUSCULAR VOLUME 85.9 fl (82.0-101.0); MONOCYTE # 0.4 10^3/ul (0.3-0.9); MONOCYTES % 10.1 % (0.0-11.0); NEUTROPHIL # 1.7 10^3/ul (1.6-7.5); NEUTROPHILS % 47.2 % (39.0-77.0); PLATELET COUNT 129 10^3/UL (140-415); RED BLOOD COUNT 3.55 10^6/ul (4.20-5.40); RED CELL DISTRIBUTION WIDTH 18.3 % (11.5-14.5)
[2019-03-20 08:19] LABS: WHITE BLOOD COUNT 3.7 10^3/ul (4.8-10.8)
[2019-03-20 08:31] LABS: ANION GAP 2 (5-13); BLOOD UREA NITROGEN 17 mg/dl (7-20); CARBON DIOXIDE 23 mmol/L (21-31); CHLORIDE 112 mmol/L (97-110); CREATININE 0.42 mg/dl (0.44-1.00); Estimated GFR > 60 mL/min (>60); GLUCOSE 73 mg/dl (70-220); MAGNESIUM 1.8 mg/dl (1.7-2.5); PHOSPHORUS 1.2 mg/dl (2.5-4.9); SODIUM 137 mmol/L (135-144)
[2019-03-20] MEDS: LEVETIRACETAM 500 MG TAB PEG ×2 (09:00→20:47)
[2019-03-20] MEDS: CEFEPIME 1GM/50 ML (PMX) 50 ML IVPB ×2 (09:00→20:47)
[2019-03-20] MEDS: FOLIC ACID 1 MG TAB PO (09:00)
[2019-03-20] MEDS: ZINC SULFATE 220 MG CAP PO (09:01)
[2019-03-20] MEDS: MULTIVITAMINS THERAPEUTIC TAB PO (09:01)
[2019-03-20] MEDS: THIAMINE 100 MG TAB PO (09:01)
[2019-03-20] MEDS: COLLAGENASE 5 GM (UD JAR) TOP (09:01)
[2019-03-20] MEDS: QUETIAPINE 25 MG TAB PO ×2 (09:01→20:47)
[2019-03-20] MEDS: ASCORBIC ACID 500 MG TAB PEG ×2 (09:01→20:48)
[2019-03-20] MEDS: MEMANTINE 10 MG TAB PO ×2 (09:07→20:48)
[2019-03-20] MEDS: BALSAM PERU/CASTOR OIL 60 GM TUBE TOP ×2 (09:07→20:49)
[2019-03-20 10:32] LABS: CA27.29 120 U/mL (<38)
[2019-03-20] MEDS: NEUTRA-PHOS 250 MG PACKET PEG (14:25)
[2019-03-21] MEDS: LANSOPRAZOLE 15 MG CAP GTB (06:18)
[2019-03-21 07:03] LABS: ADD MAN DIFF? NO
[2019-03-21 07:09] LABS: WHITE BLOOD COUNT 3.6 10^3/ul (4.8-10.8)
[2019-03-21 07:09] LABS: BASOPHIL # 0.1 10^3/ul (0.0-0.1); BASOPHILS % 1.4 % (0.0-2.0); EOSINOPHILS # 0.1 10^3/ul (0.0-0.5); HEMATOCRIT 29.3 % (37.0-47.0); HEMOGLOBIN 9.8 g/dl (12.0-16.0); LYMPHOCYTES # 1.2 10^3/ul (0.8-2.9); LYMPHOCYTES % 33.1 % (15.0-51.0); MEAN CORPUSCULAR HEMOGLOBIN 28.3 pg (29.0-33.0); MEAN CORPUSCULAR HGB CONC 33.4 g/dl (32.0-37.0); MEAN CORPUSCULAR VOLUME 84.7 fl (82.0-101.0); MEAN PLATELET VOLUME 9.7 fl (7.4-10.4); MONOCYTE # 0.3 10^3/ul (0.3-0.9); MONOCYTES % 9.4 % (0.0-11.0); NEUTROPHIL # 1.9 10^3/ul (1.6-7.5); NEUTROPHILS % 52.8 % (39.0-77.0); PLATELET COUNT 115 10^3/UL (140-415); RED BLOOD COUNT 3.46 10^6/ul (4.20-5.40); RED CELL DISTRIBUTION WIDTH 17.8 % (11.5-14.5)
[2019-03-21 07:10] LABS: RETICULOCYTE COUNT # 0.024 X10^6 (0.020-0.110); RETICULOCYTE COUNT % 0.7 % (0.5-1.5)
[2019-03-21 07:10] LABS: RETICULOCYTE RBC 3.36
[2019-03-21 07:35] LABS: ANION GAP 1 (5-13); BLOOD UREA NITROGEN 15 mg/dl (7-20); CARBON DIOXIDE 23 mmol/L (21-31); CHLORIDE 109 mmol/L (97-110); CREATININE 0.33 mg/dl (0.44-1.00); Estimated GFR > 60 mL/min (>60); GLUCOSE 88 mg/dl (70-220); MAGNESIUM 1.7 mg/dl (1.7-2.5); PHOSPHORUS 0.9 mg/dl (2.5-4.9); POTASSIUM 4.2 mmol/L (3.5-5.1); SODIUM 133 mmol/L (135-144)
[2019-03-21 07:39] LABS: BILIRUBIN,INDIRECT 0.4 mg/dl (0-1.1); BILIRUBIN,TOTAL 0.4 mg/dl (0.2-1.3)
[2019-03-21 08:04] LABS: HEPATITIS B SURFACE ANTIGEN NEGATIVE (NEGATIVE)
[2019-03-21] MEDS: COLLAGENASE 5 GM (UD JAR) TOP (08:36)
[2019-03-21] MEDS: ASCORBIC ACID 500 MG TAB PEG ×2 (08:36→21:05)
[2019-03-21] MEDS: MEMANTINE 10 MG TAB PO ×2 (08:36→21:05)
[2019-03-21] MEDS: THIAMINE 100 MG TAB PO (08:37)
[2019-03-21] MEDS: LEVETIRACETAM 500 MG TAB PEG ×2 (08:38→21:05)
[2019-03-21] MEDS: QUETIAPINE 25 MG TAB PO ×2 (08:38→21:06)
[2019-03-21] MEDS: MULTIVITAMINS THERAPEUTIC TAB PO (08:38)
[2019-03-21] MEDS: ZINC SULFATE 220 MG CAP PO (08:39)
[2019-03-21] MEDS: FOLIC ACID 1 MG TAB PO (08:39)
[2019-03-21] MEDS: BALSAM PERU/CASTOR OIL 60 GM TUBE TOP ×2 (08:39→21:06)
[2019-03-21] MEDS: EMTRICITABINE/TENOFOVIR TAB PO (12:19)
[2019-03-21] MEDS: NEUTRA-PHOS 250 MG PACKET PO (12:19)
[2019-03-21] MEDS: VALPROIC ACID LIQUID CUP 250 MG/5 ML CUP PEG (21:05)
[2019-03-21] MEDS: LAMIVUDINE/ZIDOVUDINE TAB PO (21:05)
[2019-03-22] MEDS: LANSOPRAZOLE 15 MG CAP GTB (05:46)
[2019-03-22 06:05] LABS: WHITE BLOOD COUNT 3.3 10^3/ul (4.8-10.8)
[2019-03-22 06:05] LABS: HEMATOCRIT 28.3 % (37.0-47.0); HEMOGLOBIN 9.3 g/dl (12.0-16.0); MEAN CORPUSCULAR HEMOGLOBIN 28.4 pg (29.0-33.0); MEAN CORPUSCULAR HGB CONC 32.9 g/dl (32.0-37.0); MEAN CORPUSCULAR VOLUME 86.3 fl (82.0-101.0); MEAN PLATELET VOLUME 10.1 fl (7.4-10.4); PLATELET COUNT 139 10^3/UL (140-415); RED BLOOD COUNT 3.28 10^6/ul (4.20-5.40); RED CELL DISTRIBUTION WIDTH 17.7 % (11.5-14.5)
[2019-03-22 06:08] LABS: ADD MAN DIFF? YES; POSITIVE DIFF @See below
[2019-03-22 07:02] LABS: ANION GAP 1 (5-13); BLOOD UREA NITROGEN 13 mg/dl (7-20); CALCIUM 6.9 mg/dl (8.4-10.2); CARBON DIOXIDE 25 mmol/L (21-31); CHLORIDE 107 mmol/L (97-110); CREATININE 0.32 mg/dl (0.44-1.00); Estimated GFR > 60 mL/min (>60); GLUCOSE 87 mg/dl (70-220); MAGNESIUM 1.7 mg/dl (1.7-2.5); POTASSIUM 4.4 mmol/L (3.5-5.1); SODIUM 133 mmol/L (135-144)
[2019-03-22] MEDS: FOLIC ACID 1 MG TAB PO (09:06)
[2019-03-22] MEDS: LEVETIRACETAM 500 MG TAB PEG ×2 (09:06→20:19)
[2019-03-22] MEDS: LAMIVUDINE/ZIDOVUDINE TAB PO ×2 (09:06→20:19)
[2019-03-22] MEDS: QUETIAPINE 25 MG TAB PO ×2 (09:06→20:19)
[2019-03-22] MEDS: MULTIVITAMINS THERAPEUTIC TAB PO (09:06)
[2019-03-22] MEDS: THIAMINE 100 MG TAB PO (09:06)
[2019-03-22] MEDS: ASCORBIC ACID 500 MG TAB PEG ×2 (09:06→20:19)
[2019-03-22] MEDS: ZINC SULFATE 220 MG CAP PO (09:06)
[2019-03-22] MEDS: MEMANTINE 10 MG TAB PO ×2 (09:07→20:19)
[2019-03-22] MEDS: EMTRICITABINE/TENOFOVIR TAB PO (09:07)
[2019-03-22] MEDS: VALPROIC ACID LIQUID CUP 250 MG/5 ML CUP PEG ×2 (09:07→20:19)
[2019-03-22] MEDS: COLLAGENASE 5 GM (UD JAR) TOP (09:08)
[2019-03-22] MEDS: BALSAM PERU/CASTOR OIL 60 GM TUBE TOP ×2 (09:08→20:20)
[2019-03-22 12:36] LABS: LYMPHOCYTE - % CD4 (HELPER) 10 % (30-61); LYMPHOCYTE - %CD8 (SUPPRESSOR) 80 % (12-42); LYMPHOCYTE - ABSOLUTE 1225 cells/uL (850-3900); LYMPHOCYTE - ABSOLUTE CD4 124 cells/uL (490-1740); LYMPHOCYTE - ABSOLUTE CD8 985 cells/uL (180-1170); LYMPHOCYTE - CD4/CD8 RATIO 0.13 (0.86-5.00)
[2019-03-22] MEDS: NEUTRA-PHOS 250 MG PACKET PEG (12:37)
[2019-03-22 13:20] LABS: ANISOCYTOSIS 1+ (0-0); BAND NEUTROPHILS #M 0.9 10^3/ul (0.0-0.6); BAND NEUTROPHILS % (M) 28 % (0-4); BASOPHILS % (M) 1 % (0-2); EOSINOPHILS % (M) 4 % (0-7); GIANT THROMBO% (M) 4 % (0-0); LYMPHOCYTES #M 0.6 10^3/ul (0.8-2.9); LYMPHOCYTES % (M) 20 % (15-51); MONOCYTE #M 0.1 10^3/ul (0.3-0.9); MONOCYTES % (M) 5 % (0-11); MYELOCYTES % (M) 1 % (0-0); PLATELET ESTIMATE NORMAL; POIKILOCYTOSIS 3+ (0-0); POLYCHROMASIA 1+ (0-0); REACTIVE LYMPHOCYTES% (M) 1 % (0-0); SEG NEUT #M 1.3 10^3/ul (1.6-7.5); SEGMENTED NEUTROPHILS (M) % 40 % (39-77); SMUDGE%M 50 % (0-0)
[2019-03-23] MEDS: LANSOPRAZOLE 15 MG CAP GTB (06:16)
[2019-03-23 06:43] LABS: HEMATOCRIT 27.7 % (37.0-47.0); HEMOGLOBIN 9.1 g/dl (12.0-16.0); MEAN CORPUSCULAR HEMOGLOBIN 28.3 pg (29.0-33.0); MEAN CORPUSCULAR HGB CONC 32.9 g/dl (32.0-37.0); MEAN CORPUSCULAR VOLUME 86.3 fl (82.0-101.0); PLATELET COUNT 150 10^3/UL (140-415); RED BLOOD COUNT 3.21 10^6/ul (4.20-5.40); RED CELL DISTRIBUTION WIDTH 17.9 % (11.5-14.5)
[2019-03-23 06:43] LABS: WHITE BLOOD COUNT 3.5 10^3/ul (4.8-10.8)
[2019-03-23 07:14] LABS: VALPROATE 20 ug/ml (50-100)
[2019-03-23 07:16] LABS: ADD MAN DIFF? YES; ANION GAP 1 (5-13); BLOOD UREA NITROGEN 13 mg/dl (7-20); CALCIUM 6.7 mg/dl (8.4-10.2); CARBON DIOXIDE 26 mmol/L (21-31); CHLORIDE 106 mmol/L (97-110); Estimated GFR > 60 mL/min (>60); GLUCOSE 81 mg/dl (70-220); MAGNESIUM 1.8 mg/dl (1.7-2.5); PHOSPHORUS 1.4 mg/dl (2.5-4.9); POSITIVE DIFF @See below; POTASSIUM 4.5 mmol/L (3.5-5.1); SODIUM 133 mmol/L (135-144)
[2019-03-23] MEDS: ZINC SULFATE 220 MG CAP PO (08:50)
[2019-03-23] MEDS: THIAMINE 100 MG TAB PO (08:50)
[2019-03-23] MEDS: MULTIVITAMINS THERAPEUTIC TAB PO (08:50)
[2019-03-23] MEDS: FOLIC ACID 1 MG TAB PO (08:50)
[2019-03-23] MEDS: QUETIAPINE 25 MG TAB PO ×2 (08:51→20:25)
[2019-03-23] MEDS: VALPROIC ACID LIQUID CUP 250 MG/5 ML CUP PEG ×2 (08:51→20:24)
[2019-03-23] MEDS: MEMANTINE 10 MG TAB PO ×2 (08:51→20:25)
[2019-03-23] MEDS: LEVETIRACETAM 500 MG TAB PEG ×2 (08:51→20:24)
[2019-03-23] MEDS: LAMIVUDINE/ZIDOVUDINE TAB PO ×2 (08:51→20:25)
[2019-03-23] MEDS: ASCORBIC ACID 500 MG TAB PEG ×2 (08:51→20:25)
[2019-03-23] MEDS: EMTRICITABINE/TENOFOVIR TAB PO (08:51)
[2019-03-23] MEDS: COLLAGENASE 5 GM (UD JAR) TOP (08:52)
[2019-03-23] MEDS: BALSAM PERU/CASTOR OIL 60 GM TUBE TOP ×2 (08:53→20:26)
[2019-03-23 10:09] LABS: ANISOCYTOSIS 2+ (0-0); BAND NEUTROPHILS #M 0.5 10^3/ul (0.0-0.6); BAND NEUTROPHILS % (M) 17 % (0-4); BASOPHILS % (M) 1 % (0-2); EOSINOPHILS % (M) 7 % (0-7); GIANT THROMBO% (M) 2 % (0-0); LYMPHOCYTES % (M) 29 % (15-51); MONOCYTE #M 0.2 10^3/ul (0.3-0.9); MONOCYTES % (M) 8 % (0-11); PLATELET ESTIMATE NORMAL; POIKILOCYTOSIS 1+ (0-0); POLYCHROMASIA 3+ (0-0); REACTIVE LYMPHOCYTES% (M) 2 % (0-0); SEG NEUT #M 1.3 10^3/ul (1.6-7.5); SEGMENTED NEUTROPHILS (M) % 36 % (39-77); SMUDGE%M 15 % (0-0)
[2019-03-23] MEDS: NEUTRA-PHOS 250 MG PACKET PO (10:41)
[2019-03-24] MEDS: LANSOPRAZOLE 15 MG CAP GTB (05:48)
[2019-03-24 06:24] LABS: WHITE BLOOD COUNT 4.8 10^3/ul (4.8-10.8)
[2019-03-24 06:24] LABS: HEMATOCRIT 29.4 % (37.0-47.0); HEMOGLOBIN 9.5 g/dl (12.0-16.0); MEAN CORPUSCULAR HEMOGLOBIN 28.3 pg (29.0-33.0); MEAN CORPUSCULAR HGB CONC 32.3 g/dl (32.0-37.0); MEAN CORPUSCULAR VOLUME 87.5 fl (82.0-101.0); MEAN PLATELET VOLUME 10.7 fl (7.4-10.4); PLATELET COUNT 175 10^3/UL (140-415); RED BLOOD COUNT 3.36 10^6/ul (4.20-5.40); RED CELL DISTRIBUTION WIDTH 17.7 % (11.5-14.5)
[2019-03-24 06:25] LABS: POSITIVE DIFF @See below
[2019-03-24 06:26] LABS: ADD MAN DIFF? YES
[2019-03-24 06:43] LABS: ANION GAP 0 (5-13); BLOOD UREA NITROGEN 16 mg/dl (7-20); CALCIUM 6.4 mg/dl (8.4-10.2); CARBON DIOXIDE 27 mmol/L (21-31); CHLORIDE 104 mmol/L (97-110); CREATININE 0.46 mg/dl (0.44-1.00); Estimated GFR > 60 mL/min (>60); GLUCOSE 74 mg/dl (70-220); MAGNESIUM 1.9 mg/dl (1.7-2.5); PHOSPHORUS 1.2 mg/dl (2.5-4.9); POTASSIUM 4.5 mmol/L (3.5-5.1); SODIUM 131 mmol/L (135-144)
[2019-03-24 08:09] LABS: BAND NEUTROPHILS % (M) 43 % (0-4); BURR CELLS 1+ (0-0); EOSINOPHILS % (M) 5 % (0-7); GIANT THROMBO% (M) 2 % (0-0); LYMPHOCYTES #M 0.3 10^3/ul (0.8-2.9); LYMPHOCYTES % (M) 7 % (15-51); MONOCYTE #M 0.2 10^3/ul (0.3-0.9); MONOCYTES % (M) 6 % (0-11); PLASMAC%(M) 1 % (0); PLATELET ESTIMATE NORMAL; POIKILOCYTOSIS 1+ (0-0); REACTIVE LYMPHOCYTES% (M) 2 % (0-0); SEG NEUT #M 1.8 10^3/ul (1.6-7.5); SEGMENTED NEUTROPHILS (M) % 36 % (39-77); SMUDGE%M 54 % (0-0)
[2019-03-24] MEDS: MAGNESIUM HYDROXIDE 30ML CUP PO (08:13)
[2019-03-24] MEDS: EMTRICITABINE/TENOFOVIR TAB PO (08:14)
[2019-03-24] MEDS: VALPROIC ACID LIQUID CUP 250 MG/5 ML CUP PEG ×2 (08:14→21:32)
[2019-03-24] MEDS: RISPERIDONE 0.25 MG TAB PO (08:14)
[2019-03-24] MEDS: LAMIVUDINE/ZIDOVUDINE TAB PO ×2 (08:14→21:34)
[2019-03-24] MEDS: ZINC SULFATE 220 MG CAP PO (08:14)
[2019-03-24] MEDS: QUETIAPINE 25 MG TAB PO ×2 (08:15→21:34)
[2019-03-24] MEDS: LEVETIRACETAM 500 MG TAB PEG ×2 (08:15→21:33)
[2019-03-24] MEDS: THIAMINE 100 MG TAB PO (08:15)
[2019-03-24] MEDS: ASCORBIC ACID 500 MG TAB PEG ×2 (08:15→21:34)
[2019-03-24] MEDS: MULTIVITAMINS THERAPEUTIC TAB PO (08:15)
[2019-03-24] MEDS: FOLIC ACID 1 MG TAB PO (08:16)
[2019-03-24] MEDS: COLLAGENASE 5 GM (UD JAR) TOP ×2 (08:18→16:24)
[2019-03-24] MEDS: BALSAM PERU/CASTOR OIL 60 GM TUBE TOP ×2 (08:19→16:24)
[2019-03-24] MEDS: MEMANTINE 10 MG TAB PO ×2 (08:36→21:33)
[2019-03-24] MEDS: FLUCONAZOLE 100 MG TAB PO ×2 (12:00→14:15)
[2019-03-24] MEDS: AZITHROMYCIN 600 MG TAB PO ×2 (12:00→14:15)
[2019-03-24] MEDS: TRIMETHOPRIM/SULFAMETHOX (DS) TAB PO (14:15)
[2019-03-24] MEDS: ACYCLOVIR 400 MG TAB PO (21:33)
[2019-03-24] MEDS: SOD CHLORIDE 0.9% 1,000 ML IV (22:54)
[2019-03-25 05:35] LABS: ADD MAN DIFF? NO
[2019-03-25 05:43] LABS: BASOPHILS % 0.8 % (0.0-2.0); EOSINOPHILS # 0.1 10^3/ul (0.0-0.5); EOSINOPHILS % 2.3 % (0.0-7.0); HEMATOCRIT 26.5 % (37.0-47.0); HEMOGLOBIN 8.8 g/dl (12.0-16.0); LYMPHOCYTES # 1.5 10^3/ul (0.8-2.9); LYMPHOCYTES % 38.2 % (15.0-51.0); MEAN CORPUSCULAR HEMOGLOBIN 28.9 pg (29.0-33.0); MEAN CORPUSCULAR HGB CONC 33.2 g/dl (32.0-37.0); MEAN CORPUSCULAR VOLUME 86.9 fl (82.0-101.0); MEAN PLATELET VOLUME 9.9 fl (7.4-10.4); MONOCYTE # 0.3 10^3/ul (0.3-0.9); NEUTROPHILS % 51.4 % (39.0-77.0); PLATELET COUNT 177 10^3/UL (140-415); RED BLOOD COUNT 3.05 10^6/ul (4.20-5.40); RED CELL DISTRIBUTION WIDTH 17.5 % (11.5-14.5)
[2019-03-25 05:43] LABS: WHITE BLOOD COUNT 3.9 10^3/ul (4.8-10.8)
[2019-03-25] MEDS: LANSOPRAZOLE 15 MG CAP GTB (05:53)
[2019-03-25] MEDS: LAMIVUDINE/ZIDOVUDINE TAB PO (09:37)
[2019-03-25] MEDS: QUETIAPINE 25 MG TAB PO ×2 (09:37→21:44)
[2019-03-25] MEDS: THIAMINE 100 MG TAB PO (09:37)
[2019-03-25] MEDS: EMTRICITABINE/TENOFOVIR TAB PO (09:37)
[2019-03-25] MEDS: ZINC SULFATE 220 MG CAP PO (09:37)
[2019-03-25] MEDS: FLUCONAZOLE 100 MG TAB PO (09:37)
[2019-03-25] MEDS: MEMANTINE 10 MG TAB PO ×2 (09:37→22:00)
[2019-03-25] MEDS: FOLIC ACID 1 MG TAB PO (09:37)
[2019-03-25] MEDS: VALPROIC ACID LIQUID CUP 250 MG/5 ML CUP PEG ×2 (09:37→21:44)
[2019-03-25] MEDS: MULTIVITAMINS THERAPEUTIC TAB PO (09:37)
[2019-03-25] MEDS: TRIMETHOPRIM/SULFAMETHOX (DS) TAB PO (09:37)
[2019-03-25] MEDS: LEVETIRACETAM 500 MG TAB PEG ×2 (09:38→21:44)
[2019-03-25] MEDS: ASCORBIC ACID 500 MG TAB PEG ×2 (09:38→21:44)
[2019-03-25] MEDS: METOCLOPRAMIDE 10 MG INJ IV ×3 (09:42→18:27)
[2019-03-25] MEDS: ENOXAPARIN 40 MG/0.4 ML SYG SC (09:42)
[2019-03-25] MEDS: ACYCLOVIR 400 MG TAB PO ×2 (09:42→21:44)
[2019-03-25 10:26] LABS: CA27.29 86 U/mL (<38)
[2019-03-25] MEDS: SOD CHLORIDE 0.9% 1,000 ML IV (12:54)
[2019-03-25] MEDS: BALSAM PERU/CASTOR OIL 60 GM TUBE TOP ×2 (15:26→21:45)
[2019-03-25] MEDS: COLLAGENASE 5 GM (UD JAR) TOP (15:26)
[2019-03-25] MEDS: ZIDOVUDINE 100 MG CAP PO (22:01)
[2019-03-25 22:22] LABS: CANCER ANTIGEN 15-3 56 U/mL (<32)
[2019-03-26] MEDS: METOCLOPRAMIDE 10 MG INJ IV ×4 (00:21→18:57)
[2019-03-26] MEDS: SOD CHLORIDE 0.9% 1,000 ML IV ×2 (03:07→16:54)
[2019-03-26] MEDS ORDERED: MAGNESIUM HYDROXIDE 30ML CUP PEG (05:00)
[2019-03-26 05:53] LABS: ADD MAN DIFF? NO
[2019-03-26 05:59] LABS: WHITE BLOOD COUNT 3.7 10^3/ul (4.8-10.8)
[2019-03-26 05:59] LABS: BASOPHILS % 0.8 % (0.0-2.0); EOSINOPHILS # 0.1 10^3/ul (0.0-0.5); EOSINOPHILS % 1.6 % (0.0-7.0); HEMATOCRIT 28.7 % (37.0-47.0); HEMOGLOBIN 9.1 g/dl (12.0-16.0); LYMPHOCYTES # 1.3 10^3/ul (0.8-2.9); LYMPHOCYTES % 34.5 % (15.0-51.0); MEAN CORPUSCULAR HEMOGLOBIN 28.3 pg (29.0-33.0); MEAN CORPUSCULAR HGB CONC 31.7 g/dl (32.0-37.0); MEAN CORPUSCULAR VOLUME 89.1 fl (82.0-101.0); MEAN PLATELET VOLUME 10.6 fl (7.4-10.4); MONOCYTE # 0.3 10^3/ul (0.3-0.9); MONOCYTES % 8.6 % (0.0-11.0); NEUTROPHILS % 53.7 % (39.0-77.0); PLATELET COUNT 198 10^3/UL (140-415); RED BLOOD COUNT 3.22 10^6/ul (4.20-5.40); RED CELL DISTRIBUTION WIDTH 17.9 % (11.5-14.5)
[2019-03-26] MEDS: LANSOPRAZOLE 15 MG CAP GTB (06:08)
[2019-03-26 06:28] LABS: ALBUMIN 1.8 g/dl (3.3-4.9); ANION GAP 2 (5-13); BLOOD UREA NITROGEN 12 mg/dl (7-20); CALCIUM 6.2 mg/dl (8.4-10.2); CARBON DIOXIDE 20 mmol/L (21-31); CHLORIDE 113 mmol/L (97-110); CREATININE 0.43 mg/dl (0.44-1.00); GLUCOSE 58 mg/dl (70-220); PHOSPHORUS 0.8 mg/dl (2.5-4.9); POTASSIUM 3.7 mmol/L (3.5-5.1); SODIUM 135 mmol/L (135-144)
[2019-03-26] MEDS ORDERED: ZIDOVUDINE 100 MG CAP PEG (09:00)
[2019-03-26] MEDS: POTASSIUM PHOSPHATE 40 MEQ in SOD CHLORIDE 0.9% 250 ML IVPB (09:52)
[2019-03-26] MEDS: ENOXAPARIN 40 MG/0.4 ML SYG SC (09:57)
[2019-03-26] MEDS: LACTOBACILLUS RHAMNOSUS CAP PO ×3 (09:58→20:31)
[2019-03-26] MEDS: VALPROIC ACID LIQUID CUP 250 MG/5 ML CUP PEG ×2 (09:58→20:31)
[2019-03-26] MEDS: TRIMETHOPRIM/SULFAMETHOX (DS) TAB PEG (09:58)
[2019-03-26] MEDS: EMTRICITABINE/TENOFOVIR TAB PEG (09:58)
[2019-03-26] MEDS: ACYCLOVIR 400 MG TAB PEG ×2 (09:59→20:31)
[2019-03-26] MEDS: ZINC SULFATE 220 MG CAP PEG (09:59)
[2019-03-26] MEDS: LEVETIRACETAM 500 MG TAB PEG ×2 (09:59→20:31)
[2019-03-26] MEDS: THIAMINE 100 MG TAB PEG (09:59)
[2019-03-26] MEDS: FLUCONAZOLE 100 MG TAB PEG (10:00)
[2019-03-26] MEDS: FOLIC ACID 1 MG TAB PEG (10:00)
[2019-03-26] MEDS: MULTIVITAMINS THERAPEUTIC TAB GTB (10:00)
[2019-03-26] MEDS: QUETIAPINE 25 MG TAB PEG ×2 (10:00→20:31)
[2019-03-26] MEDS: MEMANTINE 10 MG TAB PEG ×2 (10:00→20:31)
[2019-03-26] MEDS: BALSAM PERU/CASTOR OIL 60 GM TUBE TOP ×2 (10:01→20:32)
[2019-03-26] MEDS: ASCORBIC ACID 500 MG TAB PEG ×2 (10:01→20:30)
[2019-03-26] MEDS: ALBUMIN HUMAN 25% 100 ML IV (14:16)
[2019-03-26] MEDS: ZIDOVUDINE 300 MG TAB PO ×2 (15:36→20:30)
[2019-03-26] MEDS: DEXTROSE 5%-0.9% NACL 1,000 ML IV (18:57)
[2019-03-26] MEDS ORDERED: GLUCOSE GEL 15 GRAM TUBE (20:17)
[2019-03-26] MEDS: GLUCOSE GEL 15 GRAM TUBE BUCCAL (20:20)
[2019-03-26] MEDS: DEXTROSE 10% 1,000 ML IV (20:53)
[2019-03-26] MEDS ORDERED: GLUCAGON 1 MG INJ IM (21:00)
[2019-03-26] MEDS ORDERED: GLUCOSE GEL 15 GRAM TUBE PO ×2 (21:00)
[2019-03-26] MEDS ORDERED: DEXTROSE 50% 50 ML SYRINGE IV (21:00)
[2019-03-26] MEDS: INSULIN ASPART [NOVOLOG] 3 ML PEN SC (21:00)
[2019-03-26 21:32] LABS: GLUCOSE 68 mg/dl (70-220)
[2019-03-27] MEDS: METOCLOPRAMIDE 10 MG INJ IV ×4 (00:12→17:35)
[2019-03-27] MEDS: INSULIN ASPART [NOVOLOG] 3 ML PEN SC ×6 (00:18→22:17)
[2019-03-27] MEDS: LANSOPRAZOLE 15 MG CAP GTB (05:23)
[2019-03-27 05:50] LABS: WHITE BLOOD COUNT 2.5 10^3/ul (4.8-10.8)
[2019-03-27 05:50] LABS: ABNORMAL IP MESSAGE 1; HEMATOCRIT 24.6 % (37.0-47.0); HEMOGLOBIN 8.2 g/dl (12.0-16.0); MEAN CORPUSCULAR HEMOGLOBIN 28.4 pg (29.0-33.0); MEAN CORPUSCULAR HGB CONC 33.3 g/dl (32.0-37.0); MEAN CORPUSCULAR VOLUME 85.1 fl (82.0-101.0); MEAN PLATELET VOLUME 10.3 fl (7.4-10.4); PLATELET COUNT 187 10^3/UL (140-415); RED BLOOD COUNT 2.89 10^6/ul (4.20-5.40); RED CELL DISTRIBUTION WIDTH 17.7 % (11.5-14.5)
[2019-03-27 06:04] LABS: ADD MAN DIFF? YES; POSITIVE DIFF @See below
[2019-03-27 06:16] LABS: ALBUMIN 1.8 g/dl (3.3-4.9); ANION GAP 2 (5-13); BLOOD UREA NITROGEN 5 mg/dl (7-20); CALCIUM 6.3 mg/dl (8.4-10.2); CARBON DIOXIDE 19 mmol/L (21-31); CHLORIDE 110 mmol/L (97-110); CREATININE 0.35 mg/dl (0.44-1.00); GLUCOSE 109 mg/dl (70-220); MAGNESIUM 1.9 mg/dl (1.7-2.5); POTASSIUM 3.8 mmol/L (3.5-5.1); SODIUM 131 mmol/L (135-144)
[2019-03-27 06:18] LABS: PHOSPHORUS < 0.5 mg/dl (2.5-4.9)
[2019-03-27] MEDS: DEXTROSE 10% 1,000 ML IV (06:34)
[2019-03-27] MEDS: LEVETIRACETAM 500 MG TAB PEG ×2 (08:36→20:56)
[2019-03-27] MEDS: ENOXAPARIN 40 MG/0.4 ML SYG SC (08:39)
[2019-03-27] MEDS: ACYCLOVIR 400 MG TAB PEG ×2 (08:40→20:56)
[2019-03-27] MEDS: MEMANTINE 10 MG TAB PEG ×2 (08:40→20:56)
[2019-03-27] MEDS: QUETIAPINE 25 MG TAB PEG ×2 (08:40→20:56)
[2019-03-27] MEDS: MULTIVITAMINS THERAPEUTIC TAB GTB (08:40)
[2019-03-27] MEDS: ASCORBIC ACID 500 MG TAB PEG ×2 (08:40→20:56)
[2019-03-27] MEDS: THIAMINE 100 MG TAB PEG (08:40)
[2019-03-27] MEDS: FLUCONAZOLE 100 MG TAB PEG (08:41)
[2019-03-27] MEDS: ZINC SULFATE 220 MG CAP PEG (08:41)
[2019-03-27] MEDS: VALPROIC ACID LIQUID CUP 250 MG/5 ML CUP PEG ×2 (08:41→20:56)
[2019-03-27] MEDS: LACTOBACILLUS RHAMNOSUS CAP PO ×3 (08:41→20:56)
[2019-03-27] MEDS: TRIMETHOPRIM/SULFAMETHOX (DS) TAB PEG (08:41)
[2019-03-27] MEDS: FOLIC ACID 1 MG TAB PEG (08:41)
[2019-03-27] MEDS: ZIDOVUDINE 300 MG TAB PO ×2 (08:41→20:56)
[2019-03-27] MEDS: EMTRICITABINE/TENOFOVIR TAB PEG (08:41)
[2019-03-27] MEDS: BALSAM PERU/CASTOR OIL 60 GM TUBE TOP ×2 (08:42→20:57)
[2019-03-27] MEDS: COLLAGENASE 5 GM (UD JAR) TOP (08:42)
[2019-03-27] MEDS: DEXTROSE 10%/0.45% NACL 1,000 ML IV ×4 (09:49→23:59)
[2019-03-27 10:09] LABS: ANISOCYTOSIS 1+ (0-0); BAND NEUTROPHILS #M 0.1 10^3/ul (0.0-0.6); BAND NEUTROPHILS % (M) 7 % (0-4); BURR CELLS 1+ (0-0); EOSINOPHILS % (M) 2 % (0-7); LYMPHOCYTES #M 0.9 10^3/ul (0.8-2.9); LYMPHOCYTES % (M) 39 % (15-51); MONOCYTE #M 0.1 10^3/ul (0.3-0.9); MONOCYTES % (M) 5 % (0-11); PLATELET ESTIMATE NORMAL; POIKILOCYTOSIS 2+ (0-0); POLYCHROMASIA 1+ (0-0); SEG NEUT #M 1.2 10^3/ul (1.6-7.5); SEGMENTED NEUTROPHILS (M) % 47 % (39-77); SMUDGE%M 25 % (0-0)
[2019-03-27] MEDS: POTASSIUM PHOSPHATE 40 MEQ in SOD CHLORIDE 0.9% 250 ML IVPB (10:40)
[2019-03-27 13:08] LABS: ALBUMIN 1.8 g/dl (3.3-4.9); ANION GAP 1 (5-13); BLOOD UREA NITROGEN 3 mg/dl (7-20); CALCIUM 6.3 mg/dl (8.4-10.2); CARBON DIOXIDE 20 mmol/L (21-31); CHLORIDE 111 mmol/L (97-110); CREATININE 0.33 mg/dl (0.44-1.00); PHOSPHORUS 1.9 mg/dl (2.5-4.9); POTASSIUM 4.4 mmol/L (3.5-5.1); SODIUM 132 mmol/L (135-144)
[2019-03-27 13:15] LABS: GLUCOSE 49 mg/dl (70-220)
[2019-03-27] MEDS: DEXTROSE 50% 50 ML SYRINGE IV ×2 (13:41→14:46)
[2019-03-27] MEDS: METHYLPREDNISOLONE 40 MG INJ IV ×2 (17:35→22:10)
[2019-03-28] MEDS: METOCLOPRAMIDE 10 MG INJ IV ×5 (00:25→23:26)
[2019-03-28] MEDS: INSULIN ASPART [NOVOLOG] 3 ML PEN SC ×6 (00:56→21:00)
[2019-03-28 05:07] LABS: WHITE BLOOD COUNT 1.3 10^3/ul (4.8-10.8)
[2019-03-28 05:07] LABS: ABNORMAL IP MESSAGE 1; HEMATOCRIT 25.8 % (37.0-47.0); HEMOGLOBIN 8.4 g/dl (12.0-16.0); MEAN CORPUSCULAR HEMOGLOBIN 28.1 pg (29.0-33.0); MEAN CORPUSCULAR HGB CONC 32.6 g/dl (32.0-37.0); MEAN CORPUSCULAR VOLUME 86.3 fl (82.0-101.0); MEAN PLATELET VOLUME 9.7 fl (7.4-10.4); PLATELET COUNT 207 10^3/UL (140-415); RED BLOOD COUNT 2.99 10^6/ul (4.20-5.40); RED CELL DISTRIBUTION WIDTH 17.6 % (11.5-14.5)
[2019-03-28 05:18] LABS: ALBUMIN 1.9 g/dl (3.3-4.9); ANION GAP 1 (5-13); CALCIUM 6.5 mg/dl (8.4-10.2); CARBON DIOXIDE 19 mmol/L (21-31); CHLORIDE 113 mmol/L (97-110); CREATININE 0.29 mg/dl (0.44-1.00); GLUCOSE 204 mg/dl (70-220); MAGNESIUM 1.9 mg/dl (1.7-2.5); PHOSPHORUS 0.6 mg/dl (2.5-4.9); POTASSIUM 4.1 mmol/L (3.5-5.1); SODIUM 133 mmol/L (135-144)
[2019-03-28 05:20] LABS: ADD MAN DIFF? YES; POSITIVE DIFF @See below
[2019-03-28] MEDS: DEXTROSE 10%/0.45% NACL 1,000 ML IV ×2 (05:24→09:14)
[2019-03-28 05:28] LABS: BLOOD UREA NITROGEN < 2 mg/dl (7-20)
[2019-03-28] MEDS: LANSOPRAZOLE 15 MG CAP GTB (05:55)
[2019-03-28] MEDS: METHYLPREDNISOLONE 40 MG INJ IV ×2 (05:55→12:45)
[2019-03-28] MEDS: FOLIC ACID 1 MG TAB PEG (09:04)
[2019-03-28] MEDS: ZINC SULFATE 220 MG CAP PEG (09:04)
[2019-03-28] MEDS: VALPROIC ACID LIQUID CUP 250 MG/5 ML CUP PEG ×2 (09:04→22:00)
[2019-03-28] MEDS: LEVETIRACETAM 500 MG TAB PEG (09:05)
[2019-03-28] MEDS: QUETIAPINE 25 MG TAB PEG ×2 (09:05→22:01)
[2019-03-28] MEDS: THIAMINE 100 MG TAB PEG (09:05)
[2019-03-28] MEDS: MEMANTINE 10 MG TAB PEG ×2 (09:05→22:00)
[2019-03-28] MEDS: ZIDOVUDINE 300 MG TAB PO ×2 (09:05→22:00)
[2019-03-28] MEDS: ASCORBIC ACID 500 MG TAB PEG ×2 (09:05→22:00)
[2019-03-28] MEDS: EMTRICITABINE/TENOFOVIR TAB PEG (09:05)
[2019-03-28] MEDS: LACTOBACILLUS RHAMNOSUS CAP PO ×3 (09:05→22:00)
[2019-03-28] MEDS: COLLAGENASE 5 GM (UD JAR) TOP (09:06)
[2019-03-28] MEDS: FLUCONAZOLE 100 MG TAB PEG (09:06)
[2019-03-28] MEDS: ACYCLOVIR 400 MG TAB PEG ×2 (09:06→22:00)
[2019-03-28] MEDS: BALSAM PERU/CASTOR OIL 60 GM TUBE TOP ×2 (09:06→22:02)
[2019-03-28] MEDS: MULTIVITAMINS THERAPEUTIC TAB GTB (09:06)
[2019-03-28] MEDS: TRIMETHOPRIM/SULFAMETHOX (DS) TAB PEG (09:06)
[2019-03-28] MEDS: ENOXAPARIN 40 MG/0.4 ML SYG SC (09:09)
[2019-03-28 10:54] LABS: ANISOCYTOSIS 2+ (0-0); BAND NEUTROPHILS % (M) 3 % (0-4); BURR CELLS 3+ (0-0); GIANT THROMBO% (M) 14 % (0-0); LYMPHOCYTES #M 0.5 10^3/ul (0.8-2.9); LYMPHOCYTES % (M) 41 % (15-51); MONOCYTES % (M) 2 % (0-11); PLATELET ESTIMATE NORMAL; POIKILOCYTOSIS 3+ (0-0); POLYCHROMASIA 3+ (0-0); REACTIVE LYMPHOCYTES% (M) 2 % (0-0); SEG NEUT #M 0.7 10^3/ul (1.6-7.5); SEGMENTED NEUTROPHILS (M) % 53 % (39-77); SMUDGE%M 52 % (0-0)
[2019-03-28] MEDS: POTASSIUM PHOSPHATE 40 MEQ in SOD CHLORIDE 0.9% 250 ML IVPB ×2 (11:35→22:25)
[2019-03-28] MEDS: LEVETIRACETAM (100 MG/ML) 5ML CUP GTB ×2 (12:43→22:00)
[2019-03-28] MEDS: DEXTROSE 5%-0.45% NACL 1,000 ML IV (15:52)
[2019-03-28] MEDS ORDERED: LEVETIRACETAM (100 MG/ML) 5ML CUP GTB (21:00)
[2019-03-29] MEDS: INSULIN ASPART [NOVOLOG] 3 ML PEN SC ×7 (01:00→23:40)
[2019-03-29] MEDS: DEXTROSE 5%-0.45% NACL 1,000 ML IV ×3 (02:20→16:25)
[2019-03-29] MEDS: RISPERIDONE 0.25 MG TAB PEG ×2 (03:40→21:29)
[2019-03-29 06:05] LABS: ABNORMAL IP MESSAGE 1; HEMATOCRIT 28.7 % (37.0-47.0); HEMOGLOBIN 9.6 g/dl (12.0-16.0); MEAN CORPUSCULAR HEMOGLOBIN 28.4 pg (29.0-33.0); MEAN CORPUSCULAR HGB CONC 33.4 g/dl (32.0-37.0); MEAN CORPUSCULAR VOLUME 84.9 fl (82.0-101.0); MEAN PLATELET VOLUME 10.2 fl (7.4-10.4); PLATELET COUNT 122 10^3/UL (140-415); RED BLOOD COUNT 3.38 10^6/ul (4.20-5.40); RED CELL DISTRIBUTION WIDTH 17.9 % (11.5-14.5)
[2019-03-29 06:05] LABS: WHITE BLOOD COUNT 2.4 10^3/ul (4.8-10.8)
[2019-03-29 06:10] LABS: POSITIVE DIFF @See below
[2019-03-29 06:11] LABS: ADD MAN DIFF? YES
[2019-03-29] MEDS: LANSOPRAZOLE 15 MG CAP GTB (06:32)
[2019-03-29] MEDS: METOCLOPRAMIDE 10 MG INJ IV ×4 (06:32→23:28)
[2019-03-29 06:43] LABS: ANION GAP 3 (5-13); CALCIUM 6.6 mg/dl (8.4-10.2); CARBON DIOXIDE 18 mmol/L (21-31); CHLORIDE 114 mmol/L (97-110); CREATININE 0.31 mg/dl (0.44-1.00); GLUCOSE 100 mg/dl (70-220); MAGNESIUM 1.8 mg/dl (1.7-2.5); PHOSPHORUS 2.1 mg/dl (2.5-4.9); POTASSIUM 5.2 mmol/L (3.5-5.1); SODIUM 135 mmol/L (135-144)
[2019-03-29 06:54] LABS: BLOOD UREA NITROGEN < 2 mg/dl (7-20)
[2019-03-29] MEDS: DEXTROSE 10%/0.45% NACL 1,000 ML IV (07:41)
[2019-03-29] MEDS: COLLAGENASE 5 GM (UD JAR) TOP (08:19)
[2019-03-29] MEDS: BALSAM PERU/CASTOR OIL 60 GM TUBE TOP ×2 (08:20→21:33)
[2019-03-29] MEDS: VALPROIC ACID LIQUID CUP 250 MG/5 ML CUP PEG ×2 (08:24→21:28)
[2019-03-29] MEDS: ZIDOVUDINE 300 MG TAB PO ×2 (08:24→21:28)
[2019-03-29] MEDS: LACTOBACILLUS RHAMNOSUS CAP PO ×3 (08:25→21:28)
[2019-03-29] MEDS: ACYCLOVIR 400 MG TAB PEG ×2 (08:25→21:29)
[2019-03-29] MEDS: LEVETIRACETAM (100 MG/ML) 5ML CUP GTB ×2 (08:25→21:28)
[2019-03-29] MEDS: THIAMINE 100 MG TAB PEG (08:25)
[2019-03-29] MEDS: FLUCONAZOLE 100 MG TAB PEG (08:25)
[2019-03-29] MEDS: MULTIVITAMINS THERAPEUTIC TAB GTB (08:25)
[2019-03-29] MEDS: ASCORBIC ACID 500 MG TAB PEG ×2 (08:25→21:29)
[2019-03-29] MEDS: FOLIC ACID 1 MG TAB PEG (08:25)
[2019-03-29] MEDS: QUETIAPINE 25 MG TAB PEG ×2 (08:25→21:29)
[2019-03-29] MEDS: EMTRICITABINE/TENOFOVIR TAB PEG (08:25)
[2019-03-29] MEDS: ZINC SULFATE 220 MG CAP PEG (08:26)
[2019-03-29] MEDS: TRIMETHOPRIM/SULFAMETHOX (DS) TAB PEG (08:26)
[2019-03-29] MEDS: MEMANTINE 10 MG TAB PEG ×2 (08:26→21:28)
[2019-03-29] MEDS: ACETAMINOPHEN 325 MG TAB PEG (08:38)
[2019-03-29] MEDS: ENOXAPARIN 30 MG/0.3 ML SYG SC (08:40)
[2019-03-29 08:47] LABS: ANISOCYTOSIS 1+ (0-0); BAND NEUTROPHILS % (M) 1 % (0-4); BASOPHILS % (M) 1 % (0-2); BURR CELLS 2+ (0-0); LYMPHOCYTES #M 1.4 10^3/ul (0.8-2.9); LYMPHOCYTES % (M) 62 % (15-51); MONOCYTE #M 0.1 10^3/ul (0.3-0.9); MONOCYTES % (M) 6 % (0-11); PLASMAC%(M) 1 % (0); PLATELET ESTIMATE DECREASED; POIKILOCYTOSIS 1+ (0-0); SEG NEUT #M 0.7 10^3/ul (1.6-7.5); SEGMENTED NEUTROPHILS (M) % 29 % (39-77); SMUDGE%M 28 % (0-0)
[2019-03-29] MEDS: NEUTRA-PHOS 250 MG PACKET GTB (11:31)
[2019-03-29] MEDS: ALBUMIN HUMAN 25% 100 ML IV (16:25)
[2019-03-29] MEDS: LOPERAMIDE HCL 1 MG/5 ML LIQUID (10 ML UD CUP) GTB (21:28)
[2019-03-30] MEDS: METOCLOPRAMIDE 10 MG INJ IV ×3 (05:31→17:44)
[2019-03-30] MEDS: LANSOPRAZOLE 15 MG CAP GTB (05:31)
[2019-03-30] MEDS: DEXTROSE 50% 50 ML SYRINGE IV (05:35)
[2019-03-30] MEDS: INSULIN ASPART [NOVOLOG] 3 ML PEN SC ×3 (05:40→17:47)
[2019-03-30 05:58] LABS: HEMATOCRIT 22.3 % (37.0-47.0); HEMOGLOBIN 7.1 g/dl (12.0-16.0); MEAN CORPUSCULAR HGB CONC 31.8 g/dl (32.0-37.0); MEAN CORPUSCULAR VOLUME 87.8 fl (82.0-101.0); MEAN PLATELET VOLUME 9.5 fl (7.4-10.4); PLATELET COUNT 162 10^3/UL (140-415); RED BLOOD COUNT 2.54 10^6/ul (4.20-5.40); RED CELL DISTRIBUTION WIDTH 17.9 % (11.5-14.5)
[2019-03-30 05:58] LABS: WHITE BLOOD COUNT 2.9 10^3/ul (4.8-10.8)
[2019-03-30 06:00] LABS: ADD MAN DIFF? YES; POSITIVE DIFF @See below
[2019-03-30 06:30] LABS: ANION GAP 1 (5-13); BLOOD UREA NITROGEN 3 mg/dl (7-20); CARBON DIOXIDE 23 mmol/L (21-31); CHLORIDE 111 mmol/L (97-110); CREATININE 0.35 mg/dl (0.44-1.00); GLUCOSE 78 mg/dl (70-220); MAGNESIUM 1.9 mg/dl (1.7-2.5); PHOSPHORUS 1.2 mg/dl (2.5-4.9); POTASSIUM 4.5 mmol/L (3.5-5.1); SODIUM 135 mmol/L (135-144)
[2019-03-30] MEDS: DEXTROSE 5%-0.45% NACL 1,000 ML IV ×2 (06:41→19:10)
[2019-03-30 07:38] LABS: ANISOCYTOSIS 1+ (0-0); BAND NEUTROPHILS #M 0.1 10^3/ul (0.0-0.6); BAND NEUTROPHILS % (M) 4 % (0-4); BASOPHILS % (M) 1 % (0-2); BURR CELLS 1+ (0-0); EOSINOPHILS % (M) 5 % (0-7); LYMPHOCYTES #M 0.6 10^3/ul (0.8-2.9); LYMPHOCYTES % (M) 22 % (15-51); MONOCYTES % (M) 1 % (0-11); PLATELET ESTIMATE NORMAL; POIKILOCYTOSIS 1+ (0-0); SEG NEUT #M 1.9 10^3/ul (1.6-7.5); SEGMENTED NEUTROPHILS (M) % 67 % (39-77); SMUDGE%M 59 % (0-0)
[2019-03-30] MEDS: LEVETIRACETAM (100 MG/ML) 5ML CUP GTB ×2 (09:59→20:31)
[2019-03-30] MEDS: COLLAGENASE 5 GM (UD JAR) TOP (09:59)
[2019-03-30] MEDS: MEMANTINE 10 MG TAB PEG ×2 (10:00→20:27)
[2019-03-30] MEDS: ZIDOVUDINE 300 MG TAB PO ×2 (10:00→20:26)
[2019-03-30] MEDS: LACTOBACILLUS RHAMNOSUS CAP PO ×3 (10:00→20:26)
[2019-03-30] MEDS: VALPROIC ACID LIQUID CUP 250 MG/5 ML CUP PEG ×2 (10:00→20:30)
[2019-03-30] MEDS: TRIMETHOPRIM/SULFAMETHOX (DS) TAB PEG (10:00)
[2019-03-30] MEDS: EMTRICITABINE/TENOFOVIR TAB PEG (10:00)
[2019-03-30] MEDS: THIAMINE 100 MG TAB PEG (10:00)
[2019-03-30] MEDS: QUETIAPINE 25 MG TAB PEG ×2 (10:01→20:27)
[2019-03-30] MEDS: ZINC SULFATE 220 MG CAP PEG (10:01)
[2019-03-30] MEDS: FLUCONAZOLE 100 MG TAB PEG (10:01)
[2019-03-30] MEDS: MULTIVITAMINS THERAPEUTIC TAB GTB (10:01)
[2019-03-30] MEDS: ASCORBIC ACID 500 MG TAB PEG ×2 (10:01→20:26)
[2019-03-30] MEDS: ACYCLOVIR 400 MG TAB PEG ×2 (10:01→20:27)
[2019-03-30] MEDS: FOLIC ACID 1 MG TAB PEG (10:01)
[2019-03-30] MEDS: BALSAM PERU/CASTOR OIL 60 GM TUBE TOP ×2 (10:02→20:53)
[2019-03-30] MEDS: ENOXAPARIN 30 MG/0.3 ML SYG SC (10:20)
[2019-03-30] MEDS: POTASSIUM PHOSPHATE 40 MEQ in SOD CHLORIDE 0.9% 250 ML IVPB (10:23)
[2019-03-30 11:52] LABS: HEMATOCRIT 22.7 % (37.0-47.0); HEMOGLOBIN 7.3 g/dl (12.0-16.0)
[2019-03-30] MEDS: CEFEPIME 1GM/50 ML (PMX) 50 ML IVPB ×2 (12:26→20:31)
[2019-03-31] MEDS: DEXTROSE 5%-0.45% NACL 1,000 ML IV ×2 (01:27→17:48)
[2019-03-31] MEDS: METOCLOPRAMIDE 10 MG INJ IV ×2 (01:27→05:57)
[2019-03-31 05:30] LABS: ABNORMAL IP MESSAGE 1; HEMATOCRIT 22.4 % (37.0-47.0); HEMOGLOBIN 7.2 g/dl (12.0-16.0); MEAN CORPUSCULAR HEMOGLOBIN 28.1 pg (29.0-33.0); MEAN CORPUSCULAR HGB CONC 32.1 g/dl (32.0-37.0); MEAN CORPUSCULAR VOLUME 87.5 fl (82.0-101.0); MEAN PLATELET VOLUME 9.4 fl (7.4-10.4); PLATELET COUNT 150 10^3/UL (140-415); RED BLOOD COUNT 2.56 10^6/ul (4.20-5.40); RED CELL DISTRIBUTION WIDTH 17.9 % (11.5-14.5)
[2019-03-31 05:30] LABS: WHITE BLOOD COUNT 2.1 10^3/ul (4.8-10.8)
[2019-03-31 05:31] LABS: POSITIVE DIFF @See below
[2019-03-31 05:32] LABS: ADD MAN DIFF? YES
[2019-03-31] MEDS: LANSOPRAZOLE 15 MG CAP GTB (05:57)
[2019-03-31] MEDS: INSULIN ASPART [NOVOLOG] 3 ML PEN SC ×5 (05:58→23:20)
[2019-03-31 06:06] LABS: ALBUMIN 1.9 g/dl (3.3-4.9); ANION GAP 1 (5-13); BLOOD UREA NITROGEN 4 mg/dl (7-20); CARBON DIOXIDE 23 mmol/L (21-31); CHLORIDE 108 mmol/L (97-110); CREATININE 0.35 mg/dl (0.44-1.00); GLUCOSE 84 mg/dl (70-220); MAGNESIUM 1.8 mg/dl (1.7-2.5); PHOSPHORUS 1.6 mg/dl (2.5-4.9); POTASSIUM 4.8 mmol/L (3.5-5.1); SODIUM 132 mmol/L (135-144)
[2019-03-31] MEDS: ZIDOVUDINE 300 MG TAB PO ×2 (09:02→21:17)
[2019-03-31] MEDS: TRIMETHOPRIM/SULFAMETHOX (DS) TAB PEG (09:02)
[2019-03-31] MEDS: FLUCONAZOLE 100 MG TAB PEG (09:02)
[2019-03-31] MEDS: MULTIVITAMINS THERAPEUTIC TAB GTB (09:02)
[2019-03-31] MEDS: MEMANTINE 10 MG TAB PEG ×2 (09:02→21:17)
[2019-03-31] MEDS: THIAMINE 100 MG TAB PEG (09:02)
[2019-03-31] MEDS: QUETIAPINE 25 MG TAB PEG ×2 (09:03→21:17)
[2019-03-31] MEDS: ZINC SULFATE 220 MG CAP PEG (09:03)
[2019-03-31] MEDS: ACYCLOVIR 400 MG TAB PEG ×2 (09:03→21:17)
[2019-03-31] MEDS: LACTOBACILLUS RHAMNOSUS CAP PO ×3 (09:03→21:17)
[2019-03-31] MEDS: EMTRICITABINE/TENOFOVIR TAB PEG (09:03)
[2019-03-31] MEDS: ASCORBIC ACID 500 MG TAB PEG ×2 (09:03→21:17)
[2019-03-31] MEDS: LEVETIRACETAM (100 MG/ML) 5ML CUP GTB ×2 (09:03→21:17)
[2019-03-31] MEDS: FOLIC ACID 1 MG TAB PEG (09:03)
[2019-03-31] MEDS: VALPROIC ACID LIQUID CUP 250 MG/5 ML CUP PEG ×2 (09:04→21:17)
[2019-03-31] MEDS: BALSAM PERU/CASTOR OIL 60 GM TUBE TOP ×2 (09:05→21:37)
[2019-03-31] MEDS: COLLAGENASE 5 GM (UD JAR) TOP (09:05)
[2019-03-31] MEDS: ENOXAPARIN 30 MG/0.3 ML SYG SC (09:07)
[2019-03-31] MEDS: CEFEPIME 1GM/50 ML (PMX) 50 ML IVPB (09:15)
[2019-03-31] MEDS: MAGNESIUM OXIDE 400 MG TAB PEG (10:56)
[2019-03-31] MEDS: NEUTRA-PHOS 250 MG PACKET PO (11:49)
[2019-03-31] MEDS: AZITHROMYCIN 600 MG TAB GTB (11:49)
[2019-03-31] MEDS: MEROPENEM 1 GM/50ML(PMX) 50 ML IVPB ×2 (13:16→21:17)
[2019-04-01] MEDS: DEXTROSE 5%-0.45% NACL 1,000 ML IV ×2 (04:59→19:23)
[2019-04-01] MEDS: MEROPENEM 1 GM/50ML(PMX) 50 ML IVPB ×3 (05:02→21:11)
[2019-04-01] MEDS: LANSOPRAZOLE 15 MG CAP GTB (05:02)
[2019-04-01] MEDS: INSULIN ASPART [NOVOLOG] 3 ML PEN SC ×3 (05:07→18:00)
[2019-04-01 06:06] LABS: WHITE BLOOD COUNT 1.9 10^3/ul (4.8-10.8)
[2019-04-01 06:06] LABS: HEMATOCRIT 22.8 % (37.0-47.0); HEMOGLOBIN 7.4 g/dl (12.0-16.0); MEAN CORPUSCULAR HEMOGLOBIN 28.4 pg (29.0-33.0); MEAN CORPUSCULAR HGB CONC 32.5 g/dl (32.0-37.0); MEAN CORPUSCULAR VOLUME 87.4 fl (82.0-101.0); MEAN PLATELET VOLUME 9.3 fl (7.4-10.4); PLATELET COUNT 138 10^3/UL (140-415); RED BLOOD COUNT 2.61 10^6/ul (4.20-5.40)
[2019-04-01 06:07] LABS: ABNORMAL IP MESSAGE 1
[2019-04-01 06:08] LABS: ADD MAN DIFF? YES; POSITIVE DIFF @See below
[2019-04-01 06:31] LABS: ANION GAP 3 (5-13); BLOOD UREA NITROGEN 5 mg/dl (7-20); CALCIUM 7.1 mg/dl (8.4-10.2); CARBON DIOXIDE 25 mmol/L (21-31); CHLORIDE 105 mmol/L (97-110); CREATININE 0.31 mg/dl (0.44-1.00); Estimated GFR > 60 mL/min (>60); GLUCOSE 87 mg/dl (70-220); MAGNESIUM 1.8 mg/dl (1.7-2.5); PHOSPHORUS 2.1 mg/dl (2.5-4.9); POTASSIUM 4.5 mmol/L (3.5-5.1); SODIUM 133 mmol/L (135-144)
[2019-04-01] MEDS: MEMANTINE 10 MG TAB PEG ×2 (08:09→21:12)
[2019-04-01] MEDS: VALPROIC ACID LIQUID CUP 250 MG/5 ML CUP PEG ×2 (08:10→21:12)
[2019-04-01] MEDS: ZIDOVUDINE 300 MG TAB PO ×2 (08:10→21:11)
[2019-04-01] MEDS: EMTRICITABINE/TENOFOVIR TAB PEG (08:10)
[2019-04-01] MEDS: TRIMETHOPRIM/SULFAMETHOX (DS) TAB PEG (08:10)
[2019-04-01] MEDS: LACTOBACILLUS RHAMNOSUS CAP PO ×3 (08:10→21:11)
[2019-04-01] MEDS: ACYCLOVIR 400 MG TAB PEG ×2 (08:10→21:12)
[2019-04-01] MEDS: ASCORBIC ACID 500 MG TAB PEG ×2 (08:10→21:11)
[2019-04-01] MEDS: ZINC SULFATE 220 MG CAP PEG (08:10)
[2019-04-01] MEDS: MULTIVITAMINS THERAPEUTIC TAB GTB (08:10)
[2019-04-01] MEDS: FLUCONAZOLE 100 MG TAB PEG (08:10)
[2019-04-01] MEDS: FOLIC ACID 1 MG TAB PEG (08:10)
[2019-04-01] MEDS: QUETIAPINE 25 MG TAB PEG ×2 (08:10→21:12)
[2019-04-01] MEDS: LEVETIRACETAM (100 MG/ML) 5ML CUP GTB ×2 (08:10→21:12)
[2019-04-01] MEDS: THIAMINE 100 MG TAB PEG (08:11)
[2019-04-01] MEDS: BALSAM PERU/CASTOR OIL 60 GM TUBE TOP ×2 (08:16→21:17)
[2019-04-01] MEDS: COLLAGENASE 5 GM (UD JAR) TOP (08:16)
[2019-04-01] MEDS: ENOXAPARIN 30 MG/0.3 ML SYG SC (08:18)
[2019-04-01 09:10] LABS: ANISOCYTOSIS 1+ (0-0); BAND NEUTROPHILS #M 0.1 10^3/ul (0.0-0.6); BAND NEUTROPHILS % (M) 7 % (0-4); BASOPHILS % (M) 4 % (0-2); BURR CELLS 2+ (0-0); EOSINOPHILS % (M) 8 % (0-7); LYMPHOCYTES #M 0.7 10^3/ul (0.8-2.9); LYMPHOCYTES % (M) 37 % (15-51); MONOCYTES % (M) 1 % (0-11); OVALOCYTES 1+ (0-0); PLATELET ESTIMATE NORMAL; POIKILOCYTOSIS 2+ (0-0); POLYCHROMASIA 1+ (0-0); REACTIVE LYMPHOCYTES% (M) 3 % (0-0); SEG NEUT #M 0.8 10^3/ul (1.6-7.5); SEGMENTED NEUTROPHILS (M) % 40 % (39-77); SMUDGE%M 26 % (0-0)
[2019-04-01] MEDS: MAGNESIUM OXIDE 400 MG TAB NGT (13:20)
[2019-04-01] MEDS: NEUTRA-PHOS 250 MG PACKET PEG (15:00)
[2019-04-01] MEDS ORDERED: FILGRASTIM-AAFI 300 MCG/0.5 ML SYRINGE SC (19:00)
[2019-04-01] MEDS: FILGRASTIM-AAFI 300 MCG/0.5 ML SYRINGE SC (21:15)
[2019-04-02] MEDS: DEXTROSE 5%-0.45% NACL 1,000 ML IV ×2 (00:30→13:12)
[2019-04-02] MEDS: MEROPENEM 1 GM/50ML(PMX) 50 ML IVPB ×3 (05:44→21:10)
[2019-04-02] MEDS: LANSOPRAZOLE 15 MG CAP GTB (05:44)
[2019-04-02] MEDS: INSULIN ASPART [NOVOLOG] 3 ML PEN SC ×4 (05:45→17:16)
[2019-04-02] MEDS: THIAMINE 100 MG TAB PEG (09:40)
[2019-04-02] MEDS: FLUCONAZOLE 100 MG TAB PEG (09:40)
[2019-04-02] MEDS: EMTRICITABINE/TENOFOVIR TAB PEG (09:40)
[2019-04-02] MEDS: ZIDOVUDINE 300 MG TAB PO ×2 (09:40→20:44)
[2019-04-02] MEDS: LEVETIRACETAM (100 MG/ML) 5ML CUP GTB ×2 (09:40→20:37)
[2019-04-02] MEDS: FOLIC ACID 1 MG TAB PEG (09:40)
[2019-04-02] MEDS: ZINC SULFATE 220 MG CAP PEG (09:40)
[2019-04-02] MEDS: VALPROIC ACID LIQUID CUP 250 MG/5 ML CUP PEG ×2 (09:40→20:43)
[2019-04-02] MEDS: QUETIAPINE 25 MG TAB PEG ×2 (09:41→20:44)
[2019-04-02] MEDS: TRIMETHOPRIM/SULFAMETHOX (DS) TAB PEG (09:41)
[2019-04-02] MEDS: ACYCLOVIR 400 MG TAB PEG ×2 (09:41→20:44)
[2019-04-02] MEDS: BALSAM PERU/CASTOR OIL 60 GM TUBE TOP ×2 (09:41→20:48)
[2019-04-02] MEDS: ASCORBIC ACID 500 MG TAB PEG ×2 (09:41→20:44)
[2019-04-02] MEDS: COLLAGENASE 5 GM (UD JAR) TOP (09:42)
[2019-04-02] MEDS: ENOXAPARIN 30 MG/0.3 ML SYG SC (09:44)
[2019-04-02] MEDS: MEMANTINE 10 MG TAB PEG ×2 (09:52→20:44)
[2019-04-02] MEDS: MULTIVITAMINS THERAPEUTIC TAB GTB (09:52)
[2019-04-02] MEDS: LACTOBACILLUS RHAMNOSUS CAP PO ×3 (11:56→20:44)
[2019-04-02] MEDS: SOD CHLORIDE 0.9% 1,000 ML IV (14:36)
[2019-04-02] MEDS: FILGRASTIM 480 MCG INJ SC (17:19)
[2019-04-02] MEDS: MIDODRINE 2.5 MG TAB GTB (17:49)
[2019-04-03] MEDS: MEROPENEM 1 GM/50ML(PMX) 50 ML IVPB ×3 (05:39→23:14)
[2019-04-03] MEDS: INSULIN ASPART [NOVOLOG] 3 ML PEN SC ×4 (05:42→17:33)
[2019-04-03] MEDS: LANSOPRAZOLE 15 MG CAP GTB (05:42)
[2019-04-03 06:13] LABS: ABNORMAL IP MESSAGE 1; HEMATOCRIT 21.2 % (37.0-47.0); MEAN CORPUSCULAR HEMOGLOBIN 28.2 pg (29.0-33.0); MEAN CORPUSCULAR HGB CONC 31.6 g/dl (32.0-37.0); MEAN CORPUSCULAR VOLUME 89.1 fl (82.0-101.0); MEAN PLATELET VOLUME 9.1 fl (7.4-10.4); PLATELET COUNT 145 10^3/UL (140-415); RED BLOOD COUNT 2.38 10^6/ul (4.20-5.40); RED CELL DISTRIBUTION WIDTH 16.7 % (11.5-14.5)
[2019-04-03 06:13] LABS: WHITE BLOOD COUNT 3.9 10^3/ul (4.8-10.8)
[2019-04-03 06:34] LABS: ADD MAN DIFF? YES; HEMOGLOBIN 6.7 g/dl (12.0-16.0); POSITIVE DIFF @See below
[2019-04-03 06:54] LABS: ANION GAP 3 (5-13); BLOOD UREA NITROGEN 2 mg/dl (7-20); CALCIUM 7.6 mg/dl (8.4-10.2); CARBON DIOXIDE 27 mmol/L (21-31); CHLORIDE 105 mmol/L (97-110); CREATININE 0.31 mg/dl (0.44-1.00); Estimated GFR > 60 mL/min (>60); GLUCOSE 84 mg/dl (70-220); MAGNESIUM 1.6 mg/dl (1.7-2.5); PHOSPHORUS 1.8 mg/dl (2.5-4.9); POTASSIUM 4.7 mmol/L (3.5-5.1); SODIUM 135 mmol/L (135-144)
[2019-04-03 07:41] LABS: BAND NEUTROPHILS #M 0.3 10^3/ul (0.0-0.6); BAND NEUTROPHILS % (M) 8 % (0-4); BASOPHILS % (M) 1 % (0-2); EOSINOPHILS % (M) 10 % (0-7); GIANT THROMBO% (M) 1 % (0-0); HYPOCHROMASIA 1+ (0-0); LYMPHOCYTES % (M) 26 % (15-51); MONOCYTE #M 0.1 10^3/ul (0.3-0.9); MONOCYTES % (M) 3 % (0-11); PLATELET ESTIMATE NORMAL; REACTIVE LYMPHOCYTES% (M) 1 % (0-0); SEGMENTED NEUTROPHILS (M) % 51 % (39-77); SMUDGE%M 19 % (0-0)
[2019-04-03] MEDS: MULTIVITAMINS THERAPEUTIC TAB GTB (09:53)
[2019-04-03] MEDS: LEVETIRACETAM (100 MG/ML) 5ML CUP GTB ×2 (09:53→20:44)
[2019-04-03] MEDS: VALPROIC ACID LIQUID CUP 250 MG/5 ML CUP PEG ×2 (09:53→20:44)
[2019-04-03] MEDS: EMTRICITABINE/TENOFOVIR TAB PEG (09:53)
[2019-04-03] MEDS: ZINC SULFATE 220 MG CAP PEG (09:53)
[2019-04-03] MEDS: FLUCONAZOLE 100 MG TAB PEG (09:54)
[2019-04-03] MEDS: ZIDOVUDINE 300 MG TAB PO ×2 (09:54→20:44)
[2019-04-03] MEDS: LACTOBACILLUS RHAMNOSUS CAP PO ×3 (09:54→20:55)
[2019-04-03] MEDS: ASCORBIC ACID 500 MG TAB PEG ×2 (09:54→20:44)
[2019-04-03] MEDS: QUETIAPINE 25 MG TAB PEG ×2 (09:54→20:44)
[2019-04-03] MEDS: ACYCLOVIR 400 MG TAB PEG ×2 (09:54→20:44)
[2019-04-03] MEDS: MIDODRINE 2.5 MG TAB GTB ×3 (09:54→17:58)
[2019-04-03] MEDS: FOLIC ACID 1 MG TAB PEG (09:54)
[2019-04-03] MEDS: THIAMINE 100 MG TAB PEG (09:54)
[2019-04-03] MEDS: TRIMETHOPRIM/SULFAMETHOX (DS) TAB PEG (09:54)
[2019-04-03] MEDS: BALSAM PERU/CASTOR OIL 60 GM TUBE TOP ×2 (09:55→20:47)
[2019-04-03] MEDS: MEMANTINE 10 MG TAB PEG ×2 (09:55→20:44)
[2019-04-03] MEDS: COLLAGENASE 5 GM (UD JAR) TOP (09:55)
[2019-04-03] MEDS: ENOXAPARIN 30 MG/0.3 ML SYG SC (09:56)
[2019-04-03] MEDS: SOD CHLORIDE 0.9% 1,000 ML IV (10:04)
[2019-04-03] MEDS: NEUTRA-PHOS 250 MG PACKET PEG (10:05)
[2019-04-03] MEDS: MAGNESIUM OXIDE 400 MG TAB PEG (10:06)
[2019-04-03 14:00] LABS: IMMEDIATE SPIN CROSSMATCH 1 1
[2019-04-03] MEDS: FILGRASTIM-AAFI 300 MCG/0.5 ML SYRINGE SC (17:49)
[2019-04-03] MEDS: LOPERAMIDE HCL 1 MG/5 ML LIQUID (10 ML UD CUP) GTB (23:14)
[2019-04-04 05:42] LABS: ABNORMAL IP MESSAGE 1; HEMOGLOBIN 8.3 g/dl (12.0-16.0); MEAN CORPUSCULAR HEMOGLOBIN 27.9 pg (29.0-33.0); MEAN CORPUSCULAR HGB CONC 31.9 g/dl (32.0-37.0); MEAN CORPUSCULAR VOLUME 87.2 fl (82.0-101.0); MEAN PLATELET VOLUME 8.9 fl (7.4-10.4); PLATELET COUNT 168 10^3/UL (140-415); RED BLOOD COUNT 2.98 10^6/ul (4.20-5.40); RED CELL DISTRIBUTION WIDTH 15.9 % (11.5-14.5)
[2019-04-04 05:42] LABS: WHITE BLOOD COUNT 4.6 10^3/ul (4.8-10.8)
[2019-04-04] MEDS: LANSOPRAZOLE 15 MG CAP GTB (05:53)
[2019-04-04] MEDS: MEROPENEM 1 GM/50ML(PMX) 50 ML IVPB ×3 (05:53→21:35)
[2019-04-04] MEDS: SOD CHLORIDE 0.9% 1,000 ML IV ×2 (06:00→14:09)
[2019-04-04] MEDS: INSULIN ASPART [NOVOLOG] 3 ML PEN SC ×5 (06:00→23:50)
[2019-04-04 06:05] LABS: ANION GAP 1 (5-13); BLOOD UREA NITROGEN 4 mg/dl (7-20); CALCIUM 7.8 mg/dl (8.4-10.2); CARBON DIOXIDE 27 mmol/L (21-31); CHLORIDE 105 mmol/L (97-110); CREATININE 0.34 mg/dl (0.44-1.00); Estimated GFR > 60 mL/min (>60); GLUCOSE 86 mg/dl (70-220); MAGNESIUM 1.6 mg/dl (1.7-2.5); PHOSPHORUS 1.9 mg/dl (2.5-4.9); POTASSIUM 4.7 mmol/L (3.5-5.1); SODIUM 133 mmol/L (135-144)
[2019-04-04 06:07] LABS: ADD MAN DIFF? YES; POSITIVE DIFF @See below
[2019-04-04 08:09] LABS: BAND NEUTROPHILS #M 0.1 10^3/ul (0.0-0.6); BAND NEUTROPHILS % (M) 3 % (0-4); BASOPHIL #M 0.1 10^3/ul (0.0-0.0); BASOPHILS % (M) 3 % (0-2); EOSINOPHILS % (M) 5 % (0-7); LYMPHOCYTES #M 1.4 10^3/ul (0.8-2.9); LYMPHOCYTES % (M) 32 % (15-51); MONOCYTE #M 0.1 10^3/ul (0.3-0.9); MONOCYTES % (M) 3 % (0-11); PLATELET ESTIMATE NORMAL; POIKILOCYTOSIS 1+ (0-0); REACTIVE LYMPHOCYTES #M 0.5 10^3/ul (0.0-0.0); REACTIVE LYMPHOCYTES% (M) 12 % (0-0); SEGMENTED NEUTROPHILS (M) % 43 % (39-77); SMUDGE%M 32 % (0-0)
[2019-04-04] MEDS: VALPROIC ACID LIQUID CUP 250 MG/5 ML CUP PEG ×2 (08:52→20:23)
[2019-04-04] MEDS: ZIDOVUDINE 300 MG TAB PO ×2 (08:53→20:23)
[2019-04-04] MEDS: MULTIVITAMINS THERAPEUTIC TAB GTB (08:53)
[2019-04-04] MEDS: TRIMETHOPRIM/SULFAMETHOX (DS) TAB PEG (08:53)
[2019-04-04] MEDS: ASCORBIC ACID 500 MG TAB PEG ×2 (08:53→20:23)
[2019-04-04] MEDS: LEVETIRACETAM (100 MG/ML) 5ML CUP GTB ×2 (08:53→20:22)
[2019-04-04] MEDS: MIDODRINE 2.5 MG TAB GTB ×3 (08:54→17:02)
[2019-04-04] MEDS: MEMANTINE 10 MG TAB PEG ×2 (08:54→20:23)
[2019-04-04] MEDS: EMTRICITABINE/TENOFOVIR TAB PEG (08:54)
[2019-04-04] MEDS: THIAMINE 100 MG TAB PEG (08:54)
[2019-04-04] MEDS: QUETIAPINE 25 MG TAB PEG ×2 (08:55→20:23)
[2019-04-04] MEDS: ZINC SULFATE 220 MG CAP PEG (08:55)
[2019-04-04] MEDS: FOLIC ACID 1 MG TAB PEG (08:55)
[2019-04-04] MEDS: FLUCONAZOLE 100 MG TAB PEG (08:55)
[2019-04-04] MEDS: ACYCLOVIR 400 MG TAB PEG ×2 (08:55→20:23)
[2019-04-04] MEDS: LACTOBACILLUS RHAMNOSUS CAP PO ×3 (09:00→21:35)
[2019-04-04] MEDS: ENOXAPARIN 30 MG/0.3 ML SYG SC (09:14)
[2019-04-04] MEDS: COLLAGENASE 5 GM (UD JAR) TOP (09:14)
[2019-04-04] MEDS: BALSAM PERU/CASTOR OIL 60 GM TUBE TOP ×2 (09:15→20:24)
[2019-04-04] MEDS: MAGNESIUM SULFATE 2 GM/50 ML 50 ML IVPB (11:00)
[2019-04-04] MEDS: NEUTRA-PHOS 250 MG PACKET PEG (11:00)
[2019-04-04 15:54] LABS: PARATHYROID HORMONE 8.8 pg/ml (24.0-73.0)
[2019-04-04] MEDS: FILGRASTIM-AAFI 300 MCG/0.5 ML SYRINGE SC (17:03)
[2019-04-04] MEDS: NEUTRA-PHOS 250 MG PACKET GTB (20:23)
[2019-04-05 00:14] LABS: ADD UMIC NO; UR ASCORBIC ACID 40 mg/dL (NEGATIVE); UR BILIRUBIN (Dip) NEGATIVE (NEGATIVE); UR BLOOD (Dip) NEGATIVE (NEGATIVE); UR CLARITY CLEAR (CLEAR); UR COLOR STRAW (YELLOW); UR GLUCOSE (Dip) NEGATIVE (NEGATIVE); UR KETONES (Dip) NEGATIVE (NEGATIVE); UR LEUKOCYTE ESTERASE (Dip) NEGATIVE Leu/ul (NEGATIVE); UR NITRITE (Dip) NEGATIVE (NEGATIVE); UR SPECIFIC GRAVITY (Dip) 1.008 (1.003-1.030); UR TOTAL PROTEIN (Dip) NEGATIVE (NEGATIVE); UR UROBILINOGEN (Dip) NEGATIVE (NEGATIVE)
[2019-04-05 00:50] LABS: CREATININE,URINE RANDOM < 12.40 mg/dl (20-320)
[2019-04-05 01:57] LABS: OSMOLALITY,URINE 300 mOsm/kg (250-1200)
[2019-04-05] MEDS: ALBUMIN HUMAN 25% 100 ML IV ×2 (03:27→04:43)
[2019-04-05] MEDS: LANSOPRAZOLE 15 MG CAP GTB (05:27)
[2019-04-05 05:31] LABS: WHITE BLOOD COUNT 5.2 10^3/ul (4.8-10.8)
[2019-04-05 05:31] LABS: ABNORMAL IP MESSAGE 1; HEMATOCRIT 25.8 % (37.0-47.0); HEMOGLOBIN 8.3 g/dl (12.0-16.0); MEAN CORPUSCULAR HEMOGLOBIN 28.4 pg (29.0-33.0); MEAN CORPUSCULAR HGB CONC 32.2 g/dl (32.0-37.0); MEAN CORPUSCULAR VOLUME 88.4 fl (82.0-101.0); MEAN PLATELET VOLUME 9.1 fl (7.4-10.4); PLATELET COUNT 192 10^3/UL (140-415); RED BLOOD COUNT 2.92 10^6/ul (4.20-5.40); RED CELL DISTRIBUTION WIDTH 15.9 % (11.5-14.5)
[2019-04-05 05:44] LABS: ADD MAN DIFF? YES; POSITIVE DIFF @See below
[2019-04-05] MEDS: INSULIN ASPART [NOVOLOG] 3 ML PEN SC ×3 (06:00→17:45)
[2019-04-05] MEDS: LOPERAMIDE HCL 1 MG/5 ML LIQUID (10 ML UD CUP) GTB (06:01)
[2019-04-05] MEDS: MEROPENEM 1 GM/50ML(PMX) 50 ML IVPB ×3 (06:01→21:29)
[2019-04-05 06:10] LABS: ANION GAP 3 (5-13); BLOOD UREA NITROGEN 3 mg/dl (7-20); CALCIUM 7.7 mg/dl (8.4-10.2); CARBON DIOXIDE 27 mmol/L (21-31); CHLORIDE 103 mmol/L (97-110); CREATININE 0.33 mg/dl (0.44-1.00); Estimated GFR > 60 mL/min (>60); GLUCOSE 71 mg/dl (70-220); MAGNESIUM 1.9 mg/dl (1.7-2.5); PHOSPHORUS 2.1 mg/dl (2.5-4.9); SODIUM 133 mmol/L (135-144)
[2019-04-05 07:58] LABS: ANISOCYTOSIS 3+ (0-0); BAND NEUTROPHILS #M 0.5 10^3/ul (0.0-0.6); BAND NEUTROPHILS % (M) 11 % (0-4); BASOPHILS % (M) 1 % (0-2); EOSINOPHILS % (M) 6 % (0-7); HYPOCHROMASIA 1+ (0-0); LYMPHOCYTES % (M) 21 % (15-51); MONOCYTE #M 0.5 10^3/ul (0.3-0.9); MONOCYTES % (M) 11 % (0-11); PLATELET ESTIMATE NORMAL; POIKILOCYTOSIS 2+ (0-0); POLYCHROMASIA 3+ (0-0); REACTIVE LYMPHOCYTES #M 0.1 10^3/ul (0.0-0.0); REACTIVE LYMPHOCYTES% (M) 3 % (0-0); ROULEAU 1+ (0-0); SEG NEUT #M 2.5 10^3/ul (1.6-7.5); SEGMENTED NEUTROPHILS (M) % 47 % (39-77); SMUDGE%M 5 % (0-0)
[2019-04-05] MEDS: ZINC SULFATE 220 MG CAP PEG (09:21)
[2019-04-05] MEDS: TRIMETHOPRIM/SULFAMETHOX (DS) TAB PEG (09:21)
[2019-04-05] MEDS: MULTIVITAMINS THERAPEUTIC TAB GTB (09:21)
[2019-04-05] MEDS: LEVETIRACETAM (100 MG/ML) 5ML CUP GTB ×2 (09:21→20:34)
[2019-04-05] MEDS: COLLAGENASE 5 GM (UD JAR) TOP (09:21)
[2019-04-05] MEDS: VALPROIC ACID LIQUID CUP 250 MG/5 ML CUP PEG ×2 (09:21→20:34)
[2019-04-05] MEDS: FLUCONAZOLE 100 MG TAB PEG (09:21)
[2019-04-05] MEDS: ASCORBIC ACID 500 MG TAB PEG ×2 (09:21→20:34)
[2019-04-05] MEDS: FOLIC ACID 1 MG TAB PEG (09:22)
[2019-04-05] MEDS: MEMANTINE 10 MG TAB PEG ×2 (09:22→20:35)
[2019-04-05] MEDS: QUETIAPINE 25 MG TAB PEG ×2 (09:23→20:34)
[2019-04-05] MEDS: LACTOBACILLUS RHAMNOSUS CAP PO ×3 (09:23→20:33)
[2019-04-05] MEDS: NEUTRA-PHOS 250 MG PACKET GTB ×2 (09:23→20:34)
[2019-04-05] MEDS: EMTRICITABINE/TENOFOVIR TAB PEG (09:23)
[2019-04-05] MEDS: ACYCLOVIR 400 MG TAB PEG ×2 (09:23→20:34)
[2019-04-05] MEDS: THIAMINE 100 MG TAB PEG (09:23)
[2019-04-05] MEDS: MIDODRINE 2.5 MG TAB GTB (09:23)
[2019-04-05] MEDS: BALSAM PERU/CASTOR OIL 60 GM TUBE TOP ×2 (09:24→20:38)
[2019-04-05] MEDS: ENOXAPARIN 30 MG/0.3 ML SYG SC (09:27)
[2019-04-05] MEDS: ZIDOVUDINE 300 MG TAB PO ×2 (12:20→20:34)
[2019-04-05] MEDS ORDERED: MIDODRINE 2.5 MG TAB GTB ×2 (13:30→17:00)
[2019-04-05] MEDS: MIDODRINE 5 MG TAB GTB ×2 (14:14→17:46)
[2019-04-05] MEDS: FILGRASTIM-AAFI 300 MCG/0.5 ML SYRINGE SC (17:46)
[2019-04-05] MEDS: SOD CHLORIDE 0.9% 1,000 ML IV (22:00)
[2019-04-06] MEDS: SOD CHLORIDE 0.9% 500 ML IV (01:54)
[2019-04-06 05:18] LABS: HEMATOCRIT 27.5 % (37.0-47.0); HEMOGLOBIN 8.8 g/dl (12.0-16.0); MEAN CORPUSCULAR VOLUME 87.6 fl (82.0-101.0); MEAN PLATELET VOLUME 8.8 fl (7.4-10.4); PLATELET COUNT 200 10^3/UL (140-415); RED BLOOD COUNT 3.14 10^6/ul (4.20-5.40)
[2019-04-06 05:19] LABS: ADD MAN DIFF? YES; POSITIVE DIFF @See below
[2019-04-06] MEDS: LANSOPRAZOLE 15 MG CAP GTB (05:40)
[2019-04-06] MEDS: MEROPENEM 1 GM/50ML(PMX) 50 ML IVPB ×3 (05:40→21:03)
[2019-04-06] MEDS: INSULIN ASPART [NOVOLOG] 3 ML PEN SC ×5 (05:46→23:33)
[2019-04-06 05:50] LABS: ANION GAP 4 (5-13); BLOOD UREA NITROGEN 4 mg/dl (7-20); CARBON DIOXIDE 25 mmol/L (21-31); CHLORIDE 105 mmol/L (97-110); CREATININE 0.38 mg/dl (0.44-1.00); Estimated GFR > 60 mL/min (>60); GLUCOSE 87 mg/dl (70-220); MAGNESIUM 1.7 mg/dl (1.7-2.5); PHOSPHORUS 2.2 mg/dl (2.5-4.9); POTASSIUM 4.8 mmol/L (3.5-5.1); SODIUM 134 mmol/L (135-144)
[2019-04-06 07:31] LABS: ANISOCYTOSIS 1+ (0-0); BAND NEUTROPHILS #M 0.4 10^3/ul (0.0-0.6); BAND NEUTROPHILS % (M) 8 % (0-4); EOSINOPHILS % (M) 10 % (0-7); GIANT THROMBO% (M) 2 % (0-0); LYMPHOCYTES #M 2.9 10^3/ul (0.8-2.9); LYMPHOCYTES % (M) 49 % (15-51); MONOCYTE #M 0.3 10^3/ul (0.3-0.9); MONOCYTES % (M) 5 % (0-11); PLATELET ESTIMATE NORMAL; POIKILOCYTOSIS 1+ (0-0); POLYCHROMASIA 3+ (0-0); REACTIVE LYMPHOCYTES #M 0.1 10^3/ul (0.0-0.0); REACTIVE LYMPHOCYTES% (M) 2 % (0-0); SEG NEUT #M 1.6 10^3/ul (1.6-7.5); SEGMENTED NEUTROPHILS (M) % 26 % (39-77); SMUDGE%M 12 % (0-0)
[2019-04-06] MEDS: MULTIVITAMINS THERAPEUTIC TAB GTB (09:09)
[2019-04-06] MEDS: MIDODRINE 5 MG TAB GTB ×3 (09:09→17:29)
[2019-04-06] MEDS: EMTRICITABINE/TENOFOVIR TAB PEG (09:09)
[2019-04-06] MEDS: TRIMETHOPRIM/SULFAMETHOX (DS) TAB PEG (09:09)
[2019-04-06] MEDS: ACYCLOVIR 400 MG TAB PEG ×2 (09:09→20:45)
[2019-04-06] MEDS: FOLIC ACID 1 MG TAB PEG (09:09)
[2019-04-06] MEDS: MEMANTINE 10 MG TAB PEG ×2 (09:10→20:45)
[2019-04-06] MEDS: ZINC SULFATE 220 MG CAP PEG (09:10)
[2019-04-06] MEDS: QUETIAPINE 25 MG TAB PEG ×2 (09:10→20:45)
[2019-04-06] MEDS: FLUCONAZOLE 100 MG TAB PEG (09:10)
[2019-04-06] MEDS: ZIDOVUDINE 300 MG TAB PO ×2 (09:10→20:45)
[2019-04-06] MEDS: LEVETIRACETAM (100 MG/ML) 5ML CUP GTB ×2 (09:10→20:45)
[2019-04-06] MEDS: ASCORBIC ACID 500 MG TAB PEG ×2 (09:11→20:45)
[2019-04-06] MEDS: BALSAM PERU/CASTOR OIL 60 GM TUBE TOP ×2 (09:11→20:46)
[2019-04-06] MEDS: THIAMINE 100 MG TAB PEG (09:11)
[2019-04-06] MEDS: NEUTRA-PHOS 250 MG PACKET GTB ×2 (09:11→20:46)
[2019-04-06] MEDS: COLLAGENASE 5 GM (UD JAR) TOP (09:11)
[2019-04-06] MEDS: LACTOBACILLUS RHAMNOSUS CAP PO ×3 (09:11→20:45)
[2019-04-06] MEDS: VALPROIC ACID LIQUID CUP 250 MG/5 ML CUP PEG ×2 (09:11→20:45)
[2019-04-06] MEDS: ENOXAPARIN 30 MG/0.3 ML SYG SC (09:12)
[2019-04-06] MEDS: SOD CHLORIDE 0.9% 1,000 ML IV (17:29)
[2019-04-06] MEDS: FILGRASTIM-AAFI 300 MCG/0.5 ML SYRINGE SC (17:29)
[2019-04-07] MEDS: LANSOPRAZOLE 15 MG CAP GTB (05:08)
[2019-04-07] MEDS: MEROPENEM 1 GM/50ML(PMX) 50 ML IVPB ×2 (05:08→13:00)
[2019-04-07] MEDS: INSULIN ASPART [NOVOLOG] 3 ML PEN SC ×3 (05:15→17:45)
[2019-04-07 06:36] LABS: ANION GAP 4 (5-13); BLOOD UREA NITROGEN 5 mg/dl (7-20); CALCIUM 8.1 mg/dl (8.4-10.2); CARBON DIOXIDE 26 mmol/L (21-31); CHLORIDE 105 mmol/L (97-110); CREATININE 0.38 mg/dl (0.44-1.00); Estimated GFR > 60 mL/min (>60); GLUCOSE 85 mg/dl (70-220); MAGNESIUM 1.8 mg/dl (1.7-2.5); PHOSPHORUS 2.4 mg/dl (2.5-4.9); POTASSIUM 4.7 mmol/L (3.5-5.1); SODIUM 135 mmol/L (135-144)
[2019-04-07] MEDS: TRIMETHOPRIM/SULFAMETHOX (DS) TAB PEG (08:50)
[2019-04-07] MEDS: LACTOBACILLUS RHAMNOSUS CAP PO ×3 (08:50→21:08)
[2019-04-07] MEDS: ZIDOVUDINE 300 MG TAB PO ×2 (08:50→21:07)
[2019-04-07] MEDS: MIDODRINE 5 MG TAB GTB ×3 (08:50→17:55)
[2019-04-07] MEDS: LEVETIRACETAM (100 MG/ML) 5ML CUP GTB ×2 (08:51→21:07)
[2019-04-07] MEDS: COLLAGENASE 5 GM (UD JAR) TOP (08:51)
[2019-04-07] MEDS: ZINC SULFATE 220 MG CAP PEG (08:51)
[2019-04-07] MEDS: MEMANTINE 10 MG TAB PEG ×2 (08:51→21:07)
[2019-04-07] MEDS: VALPROIC ACID LIQUID CUP 250 MG/5 ML CUP PEG ×2 (08:51→21:06)
[2019-04-07] MEDS: THIAMINE 100 MG TAB PEG (08:51)
[2019-04-07] MEDS: NEUTRA-PHOS 250 MG PACKET GTB ×2 (08:51→21:08)
[2019-04-07] MEDS: ACYCLOVIR 400 MG TAB PEG ×2 (08:51→21:08)
[2019-04-07] MEDS: BALSAM PERU/CASTOR OIL 60 GM TUBE TOP ×2 (08:52→21:09)
[2019-04-07] MEDS: FLUCONAZOLE 100 MG TAB PEG (08:52)
[2019-04-07] MEDS: EMTRICITABINE/TENOFOVIR TAB PEG (08:52)
[2019-04-07] MEDS: QUETIAPINE 25 MG TAB PEG ×2 (08:52→21:08)
[2019-04-07] MEDS: FOLIC ACID 1 MG TAB PEG (08:52)
[2019-04-07] MEDS: MULTIVITAMINS THERAPEUTIC TAB GTB (08:52)
[2019-04-07] MEDS: ENOXAPARIN 30 MG/0.3 ML SYG SC (08:53)
[2019-04-07] MEDS: ASCORBIC ACID 500 MG TAB PEG ×2 (08:53→21:08)
[2019-04-07] MEDS: LOPERAMIDE HCL 1 MG/5 ML LIQUID (10 ML UD CUP) GTB (11:16)
[2019-04-07] MEDS: LORAZEPAM 2 MG INJ IV (11:16)
[2019-04-07] MEDS: SOD CHLORIDE 0.9% 1,000 ML IV ×2 (13:05→18:23)
[2019-04-07 15:01] LABS: CREATININE, RANDOM URINE 12 mg/dL (20-275); MICROALBUMIN 1.5 mg/dL; MICROALBUMIN/CREATININE RATIO 125 (<30)
[2019-04-07] MEDS: FILGRASTIM-AAFI 300 MCG/0.5 ML SYRINGE SC (17:43)
[2019-04-08] MEDS: SOD CHLORIDE 0.9% 1,000 ML IV ×3 (03:04→12:03)
[2019-04-08] MEDS: INSULIN ASPART [NOVOLOG] 3 ML PEN SC ×4 (05:45→17:23)
[2019-04-08] MEDS: LANSOPRAZOLE 15 MG CAP GTB (05:45)
[2019-04-08] MEDS: LOPERAMIDE HCL 1 MG/5 ML LIQUID (10 ML UD CUP) GTB ×2 (06:28→12:47)
[2019-04-08] MEDS: COLLAGENASE 5 GM (UD JAR) TOP (10:04)
[2019-04-08] MEDS: VALPROIC ACID LIQUID CUP 250 MG/5 ML CUP PEG ×2 (10:04→21:56)
[2019-04-08] MEDS: LEVETIRACETAM (100 MG/ML) 5ML CUP GTB ×2 (10:04→21:56)
[2019-04-08] MEDS: ZINC SULFATE 220 MG CAP PEG (10:04)
[2019-04-08] MEDS: MULTIVITAMINS THERAPEUTIC TAB GTB (10:05)
[2019-04-08] MEDS: MIDODRINE 5 MG TAB GTB ×3 (10:05→16:34)
[2019-04-08] MEDS: EMTRICITABINE/TENOFOVIR TAB PEG (10:06)
[2019-04-08] MEDS: ZIDOVUDINE 300 MG TAB PO ×2 (10:06→21:44)
[2019-04-08] MEDS: FOLIC ACID 1 MG TAB PEG (10:06)
[2019-04-08] MEDS: ACYCLOVIR 400 MG TAB PEG ×2 (10:06→21:44)
[2019-04-08] MEDS: LACTOBACILLUS RHAMNOSUS CAP PO ×3 (10:06→21:44)
[2019-04-08] MEDS: FLUCONAZOLE 100 MG TAB PEG (10:06)
[2019-04-08] MEDS: THIAMINE 100 MG TAB PEG (10:06)
[2019-04-08] MEDS: ASCORBIC ACID 500 MG TAB PEG ×2 (10:06→21:44)
[2019-04-08] MEDS: QUETIAPINE 25 MG TAB PEG ×2 (10:07→21:44)
[2019-04-08] MEDS: NEUTRA-PHOS 250 MG PACKET GTB ×2 (10:07→21:56)
[2019-04-08] MEDS: TRIMETHOPRIM/SULFAMETHOX (DS) TAB PEG (10:07)
[2019-04-08] MEDS: ENOXAPARIN 30 MG/0.3 ML SYG SC (10:09)
[2019-04-08] MEDS: BALSAM PERU/CASTOR OIL 60 GM TUBE TOP ×2 (10:10→21:57)
[2019-04-08] MEDS: MEMANTINE 10 MG TAB PEG ×2 (10:40→21:44)
[2019-04-08] MEDS: ALBUMIN HUMAN 25% 100 ML IV ×2 (10:55→17:22)
[2019-04-08] MEDS: ACETAMINOPHEN 325 MG TAB PEG (14:12)
[2019-04-08] MEDS: metroNIDAZOLE 500 MG TAB PO ×2 (16:33→21:44)
[2019-04-08] MEDS: FILGRASTIM-AAFI 300 MCG/0.5 ML SYRINGE SC (17:21)
[2019-04-08] MEDS: DEXTROSE 50% 50 ML SYRINGE IV (17:36)
[2019-04-08] MEDS: DEXTROSE 5%-0.45% NACL 1,000 ML IV (17:49)
[2019-04-09] MEDS: ALBUMIN HUMAN 25% 100 ML IV (01:36)
[2019-04-09] MEDS: DEXTROSE 5%-0.45% NACL 1,000 ML IV (05:14)
[2019-04-09] MEDS: LANSOPRAZOLE 15 MG CAP GTB (05:15)
[2019-04-09] MEDS: metroNIDAZOLE 500 MG TAB PO ×2 (05:15→14:29)
[2019-04-09] MEDS: INSULIN ASPART [NOVOLOG] 3 ML PEN SC ×4 (05:37→18:00)
[2019-04-09 05:40] LABS: ABNORMAL IP MESSAGE 1; HEMATOCRIT 24.9 % (37.0-47.0); HEMOGLOBIN 8.2 g/dl (12.0-16.0); MEAN CORPUSCULAR HEMOGLOBIN 28.8 pg (29.0-33.0); MEAN CORPUSCULAR HGB CONC 32.9 g/dl (32.0-37.0); MEAN CORPUSCULAR VOLUME 87.4 fl (82.0-101.0); MEAN PLATELET VOLUME 9.6 fl (7.4-10.4); PLATELET COUNT 259 10^3/UL (140-415); RED BLOOD COUNT 2.85 10^6/ul (4.20-5.40); RED CELL DISTRIBUTION WIDTH 15.8 % (11.5-14.5)
[2019-04-09 05:40] LABS: WHITE BLOOD COUNT 7.1 10^3/ul (4.8-10.8)
[2019-04-09 05:42] LABS: ADD MAN DIFF? YES; POSITIVE DIFF @See below
[2019-04-09 06:03] LABS: ANION GAP 8 (5-13); BLOOD UREA NITROGEN 8 mg/dl (7-20); CARBON DIOXIDE 22 mmol/L (21-31); CHLORIDE 102 mmol/L (97-110); CREATININE 0.41 mg/dl (0.44-1.00); Estimated GFR > 60 mL/min (>60); GLUCOSE 101 mg/dl (70-220); MAGNESIUM 1.7 mg/dl (1.7-2.5); PHOSPHORUS 2.3 mg/dl (2.5-4.9); POTASSIUM 4.3 mmol/L (3.5-5.1); SODIUM 132 mmol/L (135-144)
[2019-04-09 07:24] LABS: ANISOCYTOSIS 1+ (0-0); BAND NEUTROPHILS #M 0.5 10^3/ul (0.0-0.6); BAND NEUTROPHILS % (M) 8 % (0-4); EOSINOPHILS % (M) 2 % (0-7); LYMPHOCYTES #M 3.1 10^3/ul (0.8-2.9); LYMPHOCYTES % (M) 45 % (15-51); MICROCYTOSIS 1+ (0-0); MONOCYTE #M 0.2 10^3/ul (0.3-0.9); MONOCYTES % (M) 4 % (0-11); PLATELET ESTIMATE NORMAL; REACTIVE LYMPHOCYTES #M 0.2 10^3/ul (0.0-0.0); REACTIVE LYMPHOCYTES% (M) 3 % (0-0); SEG NEUT #M 2.7 10^3/ul (1.6-7.5); SEGMENTED NEUTROPHILS (M) % 38 % (39-77); SMUDGE%M 34 % (0-0); SPHEROCYTES 1+ (0-0)
[2019-04-09] MEDS: VALPROIC ACID LIQUID CUP 250 MG/5 ML CUP PEG ×2 (09:40→21:30)
[2019-04-09] MEDS: LEVETIRACETAM (100 MG/ML) 5ML CUP GTB ×2 (09:40→21:30)
[2019-04-09] MEDS: COLLAGENASE 5 GM (UD JAR) TOP (09:40)
[2019-04-09] MEDS: NEUTRA-PHOS 250 MG PACKET GTB ×2 (09:40→21:30)
[2019-04-09] MEDS: MEMANTINE 10 MG TAB PEG ×2 (09:41→21:30)
[2019-04-09] MEDS: FLUCONAZOLE 100 MG TAB PEG (09:41)
[2019-04-09] MEDS: FOLIC ACID 1 MG TAB PEG (09:41)
[2019-04-09] MEDS: MAGNESIUM SULFATE 2 GM/50 ML 50 ML IVPB (09:41)
[2019-04-09] MEDS: QUETIAPINE 25 MG TAB PEG ×2 (09:42→21:31)
[2019-04-09] MEDS: TRIMETHOPRIM/SULFAMETHOX (DS) TAB PEG (09:42)
[2019-04-09] MEDS: ZIDOVUDINE 300 MG TAB PO ×2 (09:42→21:30)
[2019-04-09] MEDS: MIDODRINE 5 MG TAB GTB ×3 (09:42→17:49)
[2019-04-09] MEDS: LACTOBACILLUS RHAMNOSUS CAP PO ×3 (09:42→21:31)
[2019-04-09] MEDS: EMTRICITABINE/TENOFOVIR TAB PEG (09:42)
[2019-04-09] MEDS: ZINC SULFATE 220 MG CAP PEG (09:42)
[2019-04-09] MEDS: ACYCLOVIR 400 MG TAB PEG ×2 (09:42→21:31)
[2019-04-09] MEDS: DEXTROSE 5%-0.9% NACL 1,000 ML IV ×2 (09:43→21:49)
[2019-04-09] MEDS: THIAMINE 100 MG TAB PEG (09:43)
[2019-04-09] MEDS: MULTIVITAMINS THERAPEUTIC TAB GTB (09:43)
[2019-04-09] MEDS: ASCORBIC ACID 500 MG TAB PEG ×2 (09:43→21:30)
[2019-04-09] MEDS: BALSAM PERU/CASTOR OIL 60 GM TUBE TOP ×2 (09:43→21:00)
[2019-04-09] MEDS: ENOXAPARIN 30 MG/0.3 ML SYG SC (09:46)
[2019-04-09] MEDS: FILGRASTIM-AAFI 300 MCG/0.5 ML SYRINGE SC (17:50)
[2019-04-09] MEDS: metroNIDAZOLE 500 MG TAB GTB (21:49)
[2019-04-10] MEDS: DEXTROSE 5%-0.9% NACL 1,000 ML IV ×2 (05:00→18:03)
[2019-04-10] MEDS: LANSOPRAZOLE 15 MG CAP GTB (05:31)
[2019-04-10] MEDS: metroNIDAZOLE 500 MG TAB GTB ×3 (05:31→21:43)
[2019-04-10] MEDS: INSULIN ASPART [NOVOLOG] 3 ML PEN SC ×5 (05:33→23:26)
[2019-04-10] MEDS: LEVETIRACETAM (100 MG/ML) 5ML CUP GTB ×2 (09:01→21:42)
[2019-04-10] MEDS: VALPROIC ACID LIQUID CUP 250 MG/5 ML CUP PEG ×2 (09:01→21:42)
[2019-04-10] MEDS: MEMANTINE 10 MG TAB PEG ×2 (09:02→21:43)
[2019-04-10] MEDS: FLUCONAZOLE 100 MG TAB PEG (09:02)
[2019-04-10] MEDS: ZINC SULFATE 220 MG CAP PEG (09:02)
[2019-04-10] MEDS: TRIMETHOPRIM/SULFAMETHOX (DS) TAB PEG (09:02)
[2019-04-10] MEDS: THIAMINE 100 MG TAB PEG (09:02)
[2019-04-10] MEDS: QUETIAPINE 25 MG TAB PEG ×2 (09:02→21:43)
[2019-04-10] MEDS: NEUTRA-PHOS 250 MG PACKET GTB ×2 (09:02→21:43)
[2019-04-10] MEDS: MULTIVITAMINS THERAPEUTIC TAB GTB (09:02)
[2019-04-10] MEDS: LACTOBACILLUS RHAMNOSUS CAP PO ×3 (09:02→21:43)
[2019-04-10] MEDS: EMTRICITABINE/TENOFOVIR TAB PEG (09:02)
[2019-04-10] MEDS: ACYCLOVIR 400 MG TAB PEG ×2 (09:02→21:43)
[2019-04-10] MEDS: ZIDOVUDINE 300 MG TAB PO ×2 (09:02→21:43)
[2019-04-10] MEDS: ASCORBIC ACID 500 MG TAB PEG ×2 (09:03→21:42)
[2019-04-10] MEDS: MIDODRINE 5 MG TAB GTB ×3 (09:03→17:29)
[2019-04-10] MEDS: FOLIC ACID 1 MG TAB PEG (09:03)
[2019-04-10] MEDS: COLLAGENASE 5 GM (UD JAR) TOP (09:04)
[2019-04-10] MEDS: BALSAM PERU/CASTOR OIL 60 GM TUBE TOP ×2 (09:04→21:43)
[2019-04-10] MEDS: ENOXAPARIN 30 MG/0.3 ML SYG SC (09:06)
[2019-04-10] MEDS: VANCOMYCIN HCL 250 MG/5ML POSYG PO ×2 (17:29→23:21)
[2019-04-10] MEDS: FILGRASTIM-AAFI 300 MCG/0.5 ML SYRINGE SC (17:30)
[2019-04-10] MEDS: DIPHENHYDRAMINE 50 MG CAP PEG (23:21)
[2019-04-11] MEDS: VANCOMYCIN HCL 250 MG/5ML POSYG PO ×3 (05:22→17:03)
[2019-04-11] MEDS: LANSOPRAZOLE 15 MG CAP GTB (05:22)
[2019-04-11] MEDS: metroNIDAZOLE 500 MG TAB GTB ×3 (05:22→21:30)
[2019-04-11] MEDS: INSULIN ASPART [NOVOLOG] 3 ML PEN SC ×3 (05:35→17:10)
[2019-04-11 06:14] LABS: HEMATOCRIT 23.4 % (37.0-47.0); HEMOGLOBIN 7.7 g/dl (12.0-16.0); MEAN CORPUSCULAR HEMOGLOBIN 29.5 pg (29.0-33.0); MEAN CORPUSCULAR HGB CONC 32.9 g/dl (32.0-37.0); MEAN CORPUSCULAR VOLUME 89.7 fl (82.0-101.0); MEAN PLATELET VOLUME 9.4 fl (7.4-10.4); PLATELET COUNT 274 10^3/UL (140-415); RED BLOOD COUNT 2.61 10^6/ul (4.20-5.40); RED CELL DISTRIBUTION WIDTH 15.9 % (11.5-14.5)
[2019-04-11 06:14] LABS: WHITE BLOOD COUNT 8.6 10^3/ul (4.8-10.8)
[2019-04-11 06:22] LABS: ADD MAN DIFF? YES; POSITIVE DIFF @See below
[2019-04-11 06:46] LABS: ALBUMIN 2.6 g/dl (3.3-4.9); ANION GAP 7 (5-13); BLOOD UREA NITROGEN 5 mg/dl (7-20); CALCIUM 7.6 mg/dl (8.4-10.2); CARBON DIOXIDE 22 mmol/L (21-31); CHLORIDE 98 mmol/L (97-110); CREATININE 0.39 mg/dl (0.44-1.00); GLUCOSE 93 mg/dl (70-220); MAGNESIUM 1.7 mg/dl (1.7-2.5); POTASSIUM 5.2 mmol/L (3.5-5.1); SODIUM 127 mmol/L (135-144)
[2019-04-11] MEDS: LACTOBACILLUS RHAMNOSUS CAP PO ×3 (08:51→21:30)
[2019-04-11] MEDS: ZIDOVUDINE 300 MG TAB PO ×2 (08:51→21:30)
[2019-04-11] MEDS: LEVETIRACETAM (100 MG/ML) 5ML CUP GTB ×2 (08:51→21:30)
[2019-04-11] MEDS: NEUTRA-PHOS 250 MG PACKET GTB ×2 (08:51→21:30)
[2019-04-11] MEDS: VALPROIC ACID LIQUID CUP 250 MG/5 ML CUP PEG ×2 (08:51→21:30)
[2019-04-11] MEDS: MEMANTINE 10 MG TAB PEG ×2 (08:51→21:31)
[2019-04-11] MEDS: FLUCONAZOLE 100 MG TAB PEG (08:52)
[2019-04-11] MEDS: MULTIVITAMINS THERAPEUTIC TAB GTB (08:52)
[2019-04-11] MEDS: ASCORBIC ACID 500 MG TAB PEG ×2 (08:52→21:30)
[2019-04-11] MEDS: ACYCLOVIR 400 MG TAB PEG ×2 (08:52→21:30)
[2019-04-11] MEDS: FOLIC ACID 1 MG TAB PEG (08:52)
[2019-04-11] MEDS: QUETIAPINE 25 MG TAB PEG ×2 (08:52→21:30)
[2019-04-11] MEDS: EMTRICITABINE/TENOFOVIR TAB PEG (08:52)
[2019-04-11] MEDS: TRIMETHOPRIM/SULFAMETHOX (DS) TAB PEG (08:52)
[2019-04-11] MEDS: ZINC SULFATE 220 MG CAP PEG (08:52)
[2019-04-11] MEDS: THIAMINE 100 MG TAB PEG (08:52)
[2019-04-11] MEDS: ENOXAPARIN 30 MG/0.3 ML SYG SC (08:53)
[2019-04-11] MEDS: MIDODRINE 5 MG TAB GTB ×3 (08:53→17:05)
[2019-04-11] MEDS: COLLAGENASE 5 GM (UD JAR) TOP (09:08)
[2019-04-11] MEDS: BALSAM PERU/CASTOR OIL 60 GM TUBE TOP ×2 (09:08→21:31)
[2019-04-11] MEDS: DEXTROSE 5%-0.9% NACL 1,000 ML IV (09:16)
[2019-04-11 09:23] LABS: BAND NEUTROPHILS #M 1.2 10^3/ul (0.0-0.6); BAND NEUTROPHILS % (M) 14 % (0-4); BASOPHIL #M 0.1 10^3/ul (0.0-0.0); BASOPHILS % (M) 2 % (0-2); EOSINOPHILS % (M) 1 % (0-7); LYMPHOCYTES #M 2.1 10^3/ul (0.8-2.9); LYMPHOCYTES % (M) 25 % (15-51); MONOCYTE #M 0.2 10^3/ul (0.3-0.9); MONOCYTES % (M) 3 % (0-11); PLATELET ESTIMATE NORMAL; POIKILOCYTOSIS 1+ (0-0); POLYCHROMASIA 1+ (0-0); REACTIVE LYMPHOCYTES #M 1.4 10^3/ul (0.0-0.0); REACTIVE LYMPHOCYTES% (M) 17 % (0-0); SEG NEUT #M 3.4 10^3/ul (1.6-7.5); SEGMENTED NEUTROPHILS (M) % 38 % (39-77); SMUDGE%M 87 % (0-0)
[2019-04-11] MEDS: LORATADINE 10 MG TAB PO (17:02)
[2019-04-11] MEDS: FILGRASTIM-AAFI 300 MCG/0.5 ML SYRINGE SC (17:04)
[2019-04-12] MEDS: VANCOMYCIN HCL 250 MG/5ML POSYG PO ×4 (00:20→18:11)
[2019-04-12] MEDS: LOPERAMIDE HCL 1 MG/5 ML LIQUID (10 ML UD CUP) GTB (00:20)
[2019-04-12 05:39] LABS: ABNORMAL IP MESSAGE 1; HEMATOCRIT 20.9 % (37.0-47.0); MEAN CORPUSCULAR HEMOGLOBIN 29.2 pg (29.0-33.0); MEAN CORPUSCULAR VOLUME 88.6 fl (82.0-101.0); MEAN PLATELET VOLUME 9.3 fl (7.4-10.4); PLATELET COUNT 276 10^3/UL (140-415); RED BLOOD COUNT 2.36 10^6/ul (4.20-5.40); RED CELL DISTRIBUTION WIDTH 16.2 % (11.5-14.5)
[2019-04-12 05:39] LABS: WHITE BLOOD COUNT 7.6 10^3/ul (4.8-10.8)
[2019-04-12] MEDS: LANSOPRAZOLE 15 MG CAP GTB (05:40)
[2019-04-12] MEDS: metroNIDAZOLE 500 MG TAB GTB ×3 (05:40→21:10)
[2019-04-12] MEDS: INSULIN ASPART [NOVOLOG] 3 ML PEN SC ×4 (05:52→18:00)
[2019-04-12 06:00] LABS: ADD MAN DIFF? YES; HEMOGLOBIN 6.9 g/dl (12.0-16.0); POSITIVE DIFF @See below
[2019-04-12 06:25] LABS: ALBUMIN 2.3 g/dl (3.3-4.9); ANION GAP 2 (5-13); BLOOD UREA NITROGEN 3 mg/dl (7-20); CALCIUM 7.5 mg/dl (8.4-10.2); CARBON DIOXIDE 23 mmol/L (21-31); CHLORIDE 102 mmol/L (97-110); CREATININE 0.34 mg/dl (0.44-1.00); GLUCOSE 95 mg/dl (70-220); MAGNESIUM 1.7 mg/dl (1.7-2.5); PHOSPHORUS 2.5 mg/dl (2.5-4.9); POTASSIUM 4.3 mmol/L (3.5-5.1); SODIUM 127 mmol/L (135-144)
[2019-04-12] MEDS: DEXTROSE 5%-0.9% NACL 1,000 ML IV (07:04)
[2019-04-12] MEDS: MAGNESIUM SULFATE 2 GM/50 ML 50 ML IVPB (09:01)
[2019-04-12] MEDS: ALBUMIN HUMAN 25% 100 ML IV (09:01)
[2019-04-12] MEDS: SOD CHLORIDE 0.9% 500 ML IV (09:01)
[2019-04-12] MEDS: VALPROIC ACID LIQUID CUP 250 MG/5 ML CUP PEG ×2 (09:04→21:09)
[2019-04-12] MEDS: COLLAGENASE 5 GM (UD JAR) TOP (09:04)
[2019-04-12] MEDS: FLUCONAZOLE 100 MG TAB PEG (09:05)
[2019-04-12] MEDS: EMTRICITABINE/TENOFOVIR TAB PEG (09:05)
[2019-04-12] MEDS: ASCORBIC ACID 500 MG TAB PEG ×2 (09:05→21:10)
[2019-04-12] MEDS: FOLIC ACID 1 MG TAB PEG (09:05)
[2019-04-12] MEDS: TRIMETHOPRIM/SULFAMETHOX (DS) TAB PEG (09:05)
[2019-04-12] MEDS: LORATADINE 10 MG TAB PO (09:05)
[2019-04-12] MEDS: QUETIAPINE 25 MG TAB PEG ×2 (09:05→21:10)
[2019-04-12] MEDS: LEVETIRACETAM (100 MG/ML) 5ML CUP GTB ×2 (09:05→21:09)
[2019-04-12] MEDS: LACTOBACILLUS RHAMNOSUS CAP PO ×3 (09:06→21:10)
[2019-04-12] MEDS: MIDODRINE 5 MG TAB GTB ×3 (09:06→18:12)
[2019-04-12] MEDS: ZIDOVUDINE 300 MG TAB PO ×2 (09:06→21:09)
[2019-04-12] MEDS: NEUTRA-PHOS 250 MG PACKET GTB ×2 (09:06→21:09)
[2019-04-12] MEDS: ACYCLOVIR 400 MG TAB PEG ×2 (09:07→21:10)
[2019-04-12] MEDS: ZINC SULFATE 220 MG CAP PEG (09:07)
[2019-04-12] MEDS: MULTIVITAMINS THERAPEUTIC TAB GTB (09:07)
[2019-04-12] MEDS: THIAMINE 100 MG TAB PEG (09:07)
[2019-04-12] MEDS: MEMANTINE 10 MG TAB PEG ×2 (09:07→21:11)
[2019-04-12] MEDS: BALSAM PERU/CASTOR OIL 60 GM TUBE TOP ×2 (09:08→21:12)
[2019-04-12] MEDS: ENOXAPARIN 30 MG/0.3 ML SYG SC (09:09)
[2019-04-12 10:03] LABS: WHITE BLOOD COUNT 6.5 10^3/ul (4.8-10.8)
[2019-04-12 10:03] LABS: ABNORMAL IP MESSAGE 1; BASOPHILS % 0.2 % (0.0-2.0); EOSINOPHILS # 0.4 10^3/ul (0.0-0.5); EOSINOPHILS % 5.9 % (0.0-7.0); HEMATOCRIT 18.4 % (37.0-47.0); LYMPHOCYTES # 1.7 10^3/ul (0.8-2.9); LYMPHOCYTES % 26.8 % (15.0-51.0); MEAN CORPUSCULAR HEMOGLOBIN 28.8 pg (29.0-33.0); MEAN CORPUSCULAR HGB CONC 32.1 g/dl (32.0-37.0); MEAN CORPUSCULAR VOLUME 89.8 fl (82.0-101.0); MEAN PLATELET VOLUME 9.2 fl (7.4-10.4); MONOCYTE # 0.2 10^3/ul (0.3-0.9); MONOCYTES % 3.6 % (0.0-11.0); NEUTROPHIL # 3.7 10^3/ul (1.6-7.5); NEUTROPHILS % 56.5 % (39.0-77.0); PLATELET COUNT 254 10^3/UL (140-415); RED BLOOD COUNT 2.05 10^6/ul (4.20-5.40); RED CELL DISTRIBUTION WIDTH 16.2 % (11.5-14.5)
[2019-04-12 10:04] LABS: POSITIVE DIFF @See below
[2019-04-12 10:06] LABS: ADD MAN DIFF? NO; HEMOGLOBIN 5.9 g/dl (12.0-16.0)
[2019-04-12 10:49] LABS: ANISOCYTOSIS 1+ (0-0); BURR CELLS 1+ (0-0); EOSINOPHILS % (M) 1 % (0-7); LYMPHOCYTES #M 1.5 10^3/ul (0.8-2.9); LYMPHOCYTES % (M) 20 % (15-51); MONOCYTES % (M) 1 % (0-11); PLATELET ESTIMATE NORMAL; POIKILOCYTOSIS 1+ (0-0); POLYCHROMASIA 1+ (0-0); REACTIVE LYMPHOCYTES% (M) 1 % (0-0); SEGMENTED NEUTROPHILS (M) % 77 % (39-77); SMUDGE%M 10 % (0-0)
[2019-04-12 13:28] LABS: HEMATOCRIT 21.8 % (37.0-47.0)
[2019-04-12 13:32] LABS: HEMOGLOBIN 6.9 g/dl (12.0-16.0)
[2019-04-12 16:51] LABS: IMMEDIATE SPIN CROSSMATCH 1 1
[2019-04-12] MEDS: FILGRASTIM-AAFI 300 MCG/0.5 ML SYRINGE SC (18:13)
[2019-04-13] MEDS: VANCOMYCIN HCL 250 MG/5ML POSYG PO ×5 (00:06→23:27)
[2019-04-13] MEDS: metroNIDAZOLE 500 MG TAB GTB ×3 (05:44→21:31)
[2019-04-13] MEDS: LANSOPRAZOLE 15 MG CAP GTB (05:44)
[2019-04-13] MEDS: INSULIN ASPART [NOVOLOG] 3 ML PEN SC ×5 (05:51→23:36)
[2019-04-13 06:05] LABS: ABNORMAL IP MESSAGE 1; HEMATOCRIT 25.7 % (37.0-47.0); HEMOGLOBIN 8.3 g/dl (12.0-16.0); MEAN CORPUSCULAR HEMOGLOBIN 28.2 pg (29.0-33.0); MEAN CORPUSCULAR HGB CONC 32.3 g/dl (32.0-37.0); MEAN CORPUSCULAR VOLUME 87.4 fl (82.0-101.0); MEAN PLATELET VOLUME 9.5 fl (7.4-10.4); PLATELET COUNT 316 10^3/UL (140-415); RED BLOOD COUNT 2.94 10^6/ul (4.20-5.40); RED CELL DISTRIBUTION WIDTH 16.6 % (11.5-14.5)
[2019-04-13 06:05] LABS: WHITE BLOOD COUNT 7.2 10^3/ul (4.8-10.8)
[2019-04-13 06:33] LABS: ADD MAN DIFF? YES; POSITIVE DIFF @See below
[2019-04-13] MEDS: DEXTROSE 5%-0.9% NACL 1,000 ML IV ×2 (06:36→21:23)
[2019-04-13 07:05] LABS: ALBUMIN 2.6 g/dl (3.3-4.9); ANION GAP 2 (5-13); BLOOD UREA NITROGEN 3 mg/dl (7-20); CALCIUM 7.7 mg/dl (8.4-10.2); CARBON DIOXIDE 23 mmol/L (21-31); CHLORIDE 106 mmol/L (97-110); CREATININE 0.34 mg/dl (0.44-1.00); GLUCOSE 74 mg/dl (70-220); MAGNESIUM 2.1 mg/dl (1.7-2.5); PHOSPHORUS 2.8 mg/dl (2.5-4.9); POTASSIUM 4.6 mmol/L (3.5-5.1); SODIUM 131 mmol/L (135-144)
[2019-04-13 07:52] LABS: ANISOCYTOSIS 2+ (0-0); BAND NEUTROPHILS #M 0.2 10^3/ul (0.0-0.6); BAND NEUTROPHILS % (M) 4 % (0-4); BASOPHIL #M 0.2 10^3/ul (0.0-0.0); BASOPHILS % (M) 3 % (0-2); BURR CELLS 1+ (0-0); EOSINOPHILS % (M) 11 % (0-7); LYMPHOCYTES % (M) 15 % (15-51); MONOCYTE #M 0.3 10^3/ul (0.3-0.9); MONOCYTES % (M) 5 % (0-11); OVALOCYTES 1+ (0-0); PLATELET ESTIMATE NORMAL; POIKILOCYTOSIS 1+ (0-0); POLYCHROMASIA 1+ (0-0); SEG NEUT #M 4.5 10^3/ul (1.6-7.5); SEGMENTED NEUTROPHILS (M) % 62 % (39-77); SMUDGE%M 8 % (0-0)
[2019-04-13] MEDS: ZIDOVUDINE 300 MG TAB PO ×2 (08:14→21:31)
[2019-04-13] MEDS: NEUTRA-PHOS 250 MG PACKET GTB ×2 (08:14→21:31)
[2019-04-13] MEDS: LORATADINE 10 MG TAB PO (08:14)
[2019-04-13] MEDS: LEVETIRACETAM (100 MG/ML) 5ML CUP GTB ×2 (08:14→21:31)
[2019-04-13] MEDS: ASCORBIC ACID 500 MG TAB PEG ×2 (08:14→21:32)
[2019-04-13] MEDS: MEMANTINE 10 MG TAB PEG ×2 (08:15→21:32)
[2019-04-13] MEDS: COLLAGENASE 5 GM (UD JAR) TOP (08:16)
[2019-04-13] MEDS: LACTOBACILLUS RHAMNOSUS CAP PO ×3 (08:16→21:31)
[2019-04-13] MEDS: TRIMETHOPRIM/SULFAMETHOX (DS) TAB PEG (08:16)
[2019-04-13] MEDS: THIAMINE 100 MG TAB PEG (08:16)
[2019-04-13] MEDS: ZINC SULFATE 220 MG CAP PEG (08:16)
[2019-04-13] MEDS: VALPROIC ACID LIQUID CUP 250 MG/5 ML CUP PEG ×2 (08:16→21:31)
[2019-04-13] MEDS: MIDODRINE 5 MG TAB GTB ×3 (08:16→17:25)
[2019-04-13] MEDS: MULTIVITAMINS THERAPEUTIC TAB GTB (08:16)
[2019-04-13] MEDS: FOLIC ACID 1 MG TAB PEG (08:17)
[2019-04-13] MEDS: QUETIAPINE 25 MG TAB PEG ×2 (08:17→21:32)
[2019-04-13] MEDS: BALSAM PERU/CASTOR OIL 60 GM TUBE TOP ×2 (08:17→21:33)
[2019-04-13] MEDS: ACYCLOVIR 400 MG TAB PEG (08:17)
[2019-04-13] MEDS: FLUCONAZOLE 100 MG TAB PEG (08:17)
[2019-04-13] MEDS: EMTRICITABINE/TENOFOVIR TAB PEG (08:17)
[2019-04-13] MEDS: ENOXAPARIN 30 MG/0.3 ML SYG SC (08:20)
[2019-04-13] MEDS: FILGRASTIM-AAFI 300 MCG/0.5 ML SYRINGE SC (17:24)
[2019-04-14] MEDS: metroNIDAZOLE 500 MG TAB GTB ×3 (05:35→21:17)
[2019-04-14] MEDS: LANSOPRAZOLE 15 MG CAP GTB (05:35)
[2019-04-14] MEDS: VANCOMYCIN HCL 250 MG/5ML POSYG PO ×3 (05:35→17:27)
[2019-04-14] MEDS: INSULIN ASPART [NOVOLOG] 3 ML PEN SC ×3 (05:36→17:29)
[2019-04-14 06:27] LABS: HEMATOCRIT 26.3 % (37.0-47.0); HEMOGLOBIN 8.5 g/dl (12.0-16.0); MEAN CORPUSCULAR HEMOGLOBIN 28.1 pg (29.0-33.0); MEAN CORPUSCULAR HGB CONC 32.3 g/dl (32.0-37.0); MEAN CORPUSCULAR VOLUME 87.1 fl (82.0-101.0); MEAN PLATELET VOLUME 9.4 fl (7.4-10.4); PLATELET COUNT 346 10^3/UL (140-415); RED BLOOD COUNT 3.02 10^6/ul (4.20-5.40); RED CELL DISTRIBUTION WIDTH 17.3 % (11.5-14.5)
[2019-04-14 06:37] LABS: ADD MAN DIFF? YES; POSITIVE DIFF @See below
[2019-04-14 06:53] LABS: ALBUMIN 2.4 g/dl (3.3-4.9); ANION GAP 5 (5-13); BLOOD UREA NITROGEN 3 mg/dl (7-20); CALCIUM 7.8 mg/dl (8.4-10.2); CARBON DIOXIDE 22 mmol/L (21-31); CHLORIDE 105 mmol/L (97-110); CREATININE 0.35 mg/dl (0.44-1.00); GLUCOSE 89 mg/dl (70-220); MAGNESIUM 1.8 mg/dl (1.7-2.5); PHOSPHORUS 2.9 mg/dl (2.5-4.9); POTASSIUM 4.7 mmol/L (3.5-5.1); SODIUM 132 mmol/L (135-144)
[2019-04-14] MEDS: NEUTRA-PHOS 250 MG PACKET GTB ×2 (08:34→20:29)
[2019-04-14] MEDS: COLLAGENASE 5 GM (UD JAR) TOP (08:34)
[2019-04-14] MEDS: EMTRICITABINE/TENOFOVIR TAB PEG (08:35)
[2019-04-14] MEDS: VALPROIC ACID LIQUID CUP 250 MG/5 ML CUP PEG ×2 (08:35→20:29)
[2019-04-14] MEDS: LORATADINE 10 MG TAB PO (08:36)
[2019-04-14] MEDS: TRIMETHOPRIM/SULFAMETHOX (DS) TAB PEG (08:36)
[2019-04-14] MEDS: FLUCONAZOLE 100 MG TAB PEG (08:36)
[2019-04-14] MEDS: ASCORBIC ACID 500 MG TAB PEG ×2 (08:36→20:30)
[2019-04-14] MEDS: ACYCLOVIR 400 MG TAB PEG (08:36)
[2019-04-14] MEDS: LEVETIRACETAM (100 MG/ML) 5ML CUP GTB ×2 (08:36→20:29)
[2019-04-14] MEDS: ZINC SULFATE 220 MG CAP PEG (08:36)
[2019-04-14] MEDS: FOLIC ACID 1 MG TAB PEG (08:36)
[2019-04-14] MEDS: LACTOBACILLUS RHAMNOSUS CAP PO ×3 (08:36→20:30)
[2019-04-14] MEDS: MEMANTINE 10 MG TAB PEG ×2 (08:37→20:30)
[2019-04-14] MEDS: THIAMINE 100 MG TAB PEG (08:37)
[2019-04-14] MEDS: MIDODRINE 5 MG TAB GTB ×3 (08:37→17:29)
[2019-04-14] MEDS: QUETIAPINE 25 MG TAB PEG ×2 (08:37→20:29)
[2019-04-14] MEDS: ZIDOVUDINE 300 MG TAB PO ×2 (08:37→20:29)
[2019-04-14] MEDS: MULTIVITAMINS THERAPEUTIC TAB GTB (08:37)
[2019-04-14] MEDS: BALSAM PERU/CASTOR OIL 60 GM TUBE TOP ×2 (08:38→20:31)
[2019-04-14] MEDS: ENOXAPARIN 30 MG/0.3 ML SYG SC (08:40)
[2019-04-14 09:12] LABS: ANISOCYTOSIS 1+ (0-0); BAND NEUTROPHILS #M 0.4 10^3/ul (0.0-0.6); BAND NEUTROPHILS % (M) 6 % (0-4); BASOPHIL #M 0.1 10^3/ul (0.0-0.0); BASOPHILS % (M) 2 % (0-2); EOSINOPHILS % (M) 6 % (0-7); GIANT THROMBO% (M) 1 % (0-0); LYMPHOCYTES #M 2.4 10^3/ul (0.8-2.9); LYMPHOCYTES % (M) 31 % (15-51); MONOCYTE #M 0.2 10^3/ul (0.3-0.9); MONOCYTES % (M) 3 % (0-11); PLATELET ESTIMATE NORMAL; REACTIVE LYMPHOCYTES #M 0.3 10^3/ul (0.0-0.0); REACTIVE LYMPHOCYTES% (M) 4 % (0-0); SEG NEUT #M 3.9 10^3/ul (1.6-7.5); SEGMENTED NEUTROPHILS (M) % 48 % (39-77); SMUDGE%M 37 % (0-0)
[2019-04-14] MEDS: ACETAMINOPHEN 325 MG TAB PEG ×2 (11:03→20:30)
[2019-04-14] MEDS: FILGRASTIM-AAFI 300 MCG/0.5 ML SYRINGE SC (17:28)
[2019-04-15] MEDS: VANCOMYCIN HCL 250 MG/5ML POSYG PO ×4 (00:18→17:27)
[2019-04-15] MEDS: metroNIDAZOLE 500 MG TAB GTB ×3 (05:26→17:27)
[2019-04-15] MEDS: LANSOPRAZOLE 15 MG CAP GTB (05:26)
[2019-04-15 05:40] LABS: ANION GAP 3 (5-13); BLOOD UREA NITROGEN 3 mg/dl (7-20); CARBON DIOXIDE 25 mmol/L (21-31); CHLORIDE 104 mmol/L (97-110); CREATININE 0.33 mg/dl (0.44-1.00); Estimated GFR > 60 mL/min (>60); GLUCOSE 86 mg/dl (70-220); MAGNESIUM 1.9 mg/dl (1.7-2.5); PHOSPHORUS 3.6 mg/dl (2.5-4.9); POTASSIUM 4.9 mmol/L (3.5-5.1); SODIUM 132 mmol/L (135-144)
[2019-04-15] MEDS: INSULIN ASPART [NOVOLOG] 3 ML PEN SC ×4 (06:00→17:37)
[2019-04-15] MEDS: LEVETIRACETAM (100 MG/ML) 5ML CUP GTB ×2 (08:14→20:44)
[2019-04-15] MEDS: COLLAGENASE 5 GM (UD JAR) TOP (08:15)
[2019-04-15] MEDS: VALPROIC ACID LIQUID CUP 250 MG/5 ML CUP PEG ×2 (08:15→20:44)
[2019-04-15] MEDS: QUETIAPINE 25 MG TAB PEG ×2 (08:16→20:43)
[2019-04-15] MEDS: EMTRICITABINE/TENOFOVIR TAB PEG (08:16)
[2019-04-15] MEDS: ASCORBIC ACID 500 MG TAB PEG ×2 (08:16→20:43)
[2019-04-15] MEDS: LORATADINE 10 MG TAB PO (08:16)
[2019-04-15] MEDS: TRIMETHOPRIM/SULFAMETHOX (DS) TAB PEG (08:16)
[2019-04-15] MEDS: MIDODRINE 5 MG TAB GTB ×3 (08:16→17:27)
[2019-04-15] MEDS: LACTOBACILLUS RHAMNOSUS CAP PO ×3 (08:17→20:44)
[2019-04-15] MEDS: ACYCLOVIR 400 MG TAB PEG (08:17)
[2019-04-15] MEDS: FLUCONAZOLE 100 MG TAB PEG (08:17)
[2019-04-15] MEDS: MEMANTINE 10 MG TAB PEG ×2 (08:17→20:44)
[2019-04-15] MEDS: FOLIC ACID 1 MG TAB PEG (08:17)
[2019-04-15] MEDS: MULTIVITAMINS THERAPEUTIC TAB GTB (08:17)
[2019-04-15] MEDS: BALSAM PERU/CASTOR OIL 60 GM TUBE TOP ×2 (08:18→20:51)
[2019-04-15] MEDS: THIAMINE 100 MG TAB PEG (08:18)
[2019-04-15] MEDS: ENOXAPARIN 30 MG/0.3 ML SYG SC (08:20)
[2019-04-15] MEDS: ZIDOVUDINE 300 MG TAB PO ×2 (08:39→20:43)
[2019-04-15] MEDS: ZINC SULFATE 220 MG CAP PEG (08:39)
[2019-04-15] MEDS: FILGRASTIM-AAFI 300 MCG/0.5 ML SYRINGE SC (17:32)
[2019-04-16] MEDS: VANCOMYCIN HCL 250 MG/5ML POSYG PO ×4 (00:22→17:25)
[2019-04-16] MEDS: metroNIDAZOLE 500 MG TAB GTB ×3 (05:47→21:10)
[2019-04-16] MEDS: INSULIN ASPART [NOVOLOG] 3 ML PEN SC ×4 (05:47→17:31)
[2019-04-16] MEDS: LANSOPRAZOLE 15 MG CAP GTB (05:47)
[2019-04-16] MEDS: LEVETIRACETAM (100 MG/ML) 5ML CUP GTB ×2 (09:20→21:10)
[2019-04-16] MEDS: VALPROIC ACID LIQUID CUP 250 MG/5 ML CUP PEG ×2 (09:20→21:10)
[2019-04-16] MEDS: ZINC SULFATE 220 MG CAP PEG (09:20)
[2019-04-16] MEDS: COLLAGENASE 5 GM (UD JAR) TOP (09:20)
[2019-04-16] MEDS: TRIMETHOPRIM/SULFAMETHOX (DS) TAB PEG (09:21)
[2019-04-16] MEDS: MIDODRINE 5 MG TAB GTB ×3 (09:21→17:26)
[2019-04-16] MEDS: ZIDOVUDINE 300 MG TAB PO ×2 (09:21→21:09)
[2019-04-16] MEDS: LACTOBACILLUS RHAMNOSUS CAP PO ×3 (09:21→21:09)
[2019-04-16] MEDS: EMTRICITABINE/TENOFOVIR TAB PEG (09:22)
[2019-04-16] MEDS: ASCORBIC ACID 500 MG TAB PEG ×2 (09:22→21:10)
[2019-04-16] MEDS: MULTIVITAMINS THERAPEUTIC TAB GTB (09:22)
[2019-04-16] MEDS: QUETIAPINE 25 MG TAB PEG ×2 (09:22→21:10)
[2019-04-16] MEDS: MEMANTINE 10 MG TAB PEG ×2 (09:22→21:27)
[2019-04-16] MEDS: FOLIC ACID 1 MG TAB PEG (09:22)
[2019-04-16] MEDS: THIAMINE 100 MG TAB PEG (09:23)
[2019-04-16] MEDS: LORATADINE 10 MG TAB PO (09:23)
[2019-04-16] MEDS: BALSAM PERU/CASTOR OIL 60 GM TUBE TOP ×2 (09:24→21:10)
[2019-04-16] MEDS: FLUCONAZOLE 100 MG TAB PEG (09:29)
[2019-04-16] MEDS: ACYCLOVIR 400 MG TAB PEG (09:29)
[2019-04-16] MEDS: ENOXAPARIN 30 MG/0.3 ML SYG SC (09:31)
[2019-04-16] MEDS: FILGRASTIM-AAFI 300 MCG/0.5 ML SYRINGE SC (17:29)
[2019-04-17] MEDS: VANCOMYCIN HCL 250 MG/5ML POSYG PO ×5 (01:10→23:32)
[2019-04-17] MEDS: LANSOPRAZOLE 15 MG CAP GTB (05:14)
[2019-04-17] MEDS: metroNIDAZOLE 500 MG TAB GTB ×3 (05:14→21:05)
[2019-04-17] MEDS: INSULIN ASPART [NOVOLOG] 3 ML PEN SC ×5 (05:18→23:39)
[2019-04-17 06:36] LABS: HEMATOCRIT 28.1 % (37.0-47.0); HEMOGLOBIN 9.1 g/dl (12.0-16.0); MEAN CORPUSCULAR HEMOGLOBIN 28.3 pg (29.0-33.0); MEAN CORPUSCULAR HGB CONC 32.4 g/dl (32.0-37.0); MEAN CORPUSCULAR VOLUME 87.3 fl (82.0-101.0); MEAN PLATELET VOLUME 9.2 fl (7.4-10.4); PLATELET COUNT 443 10^3/UL (140-415); RED BLOOD COUNT 3.22 10^6/ul (4.20-5.40); RED CELL DISTRIBUTION WIDTH 17.6 % (11.5-14.5)
[2019-04-17 06:36] LABS: WHITE BLOOD COUNT 13.1 10^3/ul (4.8-10.8)
[2019-04-17 06:50] LABS: ADD MAN DIFF? YES; POSITIVE DIFF @See below
[2019-04-17 06:51] LABS: ANION GAP 5 (5-13); BLOOD UREA NITROGEN 6 mg/dl (7-20); CALCIUM 8.4 mg/dl (8.4-10.2); CARBON DIOXIDE 28 mmol/L (21-31); CHLORIDE 98 mmol/L (97-110); CREATININE 0.34 mg/dl (0.44-1.00); Estimated GFR > 60 mL/min (>60); GLUCOSE 66 mg/dl (70-220); MAGNESIUM 1.8 mg/dl (1.7-2.5); PHOSPHORUS 3.6 mg/dl (2.5-4.9); POTASSIUM 5.1 mmol/L (3.5-5.1); SODIUM 131 mmol/L (135-144)
[2019-04-17 07:55] LABS: ANISOCYTOSIS 1+ (0-0); BAND NEUTROPHILS #M 0.7 10^3/ul (0.0-0.6); BAND NEUTROPHILS % (M) 6 % (0-4); BASOPHIL #M 0.2 10^3/ul (0.0-0.0); BASOPHILS % (M) 2 % (0-2); BURR CELLS 1+ (0-0); EOSINOPHILS % (M) 10 % (0-7); GIANT THROMBO% (M) 2 % (0-0); LYMPHOCYTES % (M) 31 % (15-51); MONOCYTE #M 0.2 10^3/ul (0.3-0.9); MONOCYTES % (M) 2 % (0-11); PLATELET ESTIMATE NORMAL; PROMYELOCYTES #M 0.1 10^3/ul (0-0); PROMYELOCYTES % (M) 1 % (0-0); REACTIVE LYMPHOCYTES #M 0.6 10^3/ul (0.0-0.0); REACTIVE LYMPHOCYTES% (M) 5 % (0-0); SEG NEUT #M 5.7 10^3/ul (1.6-7.5); SEGMENTED NEUTROPHILS (M) % 43 % (39-77); SMUDGE%M 32 % (0-0)
[2019-04-17] MEDS: LEVETIRACETAM (100 MG/ML) 5ML CUP GTB ×2 (09:07→21:04)
[2019-04-17] MEDS: VALPROIC ACID LIQUID CUP 250 MG/5 ML CUP PEG ×2 (09:07→21:04)
[2019-04-17] MEDS: COLLAGENASE 5 GM (UD JAR) TOP (09:07)
[2019-04-17] MEDS: MEMANTINE 10 MG TAB PEG ×2 (09:08→21:05)
[2019-04-17] MEDS: LACTOBACILLUS RHAMNOSUS CAP PO ×3 (09:08→21:05)
[2019-04-17] MEDS: TRIMETHOPRIM/SULFAMETHOX (DS) TAB PEG (09:09)
[2019-04-17] MEDS: QUETIAPINE 25 MG TAB PEG ×2 (09:10→21:05)
[2019-04-17] MEDS: ASCORBIC ACID 500 MG TAB PEG ×2 (09:12→21:05)
[2019-04-17] MEDS: ACYCLOVIR 400 MG TAB PEG (09:12)
[2019-04-17] MEDS: THIAMINE 100 MG TAB PEG (09:12)
[2019-04-17] MEDS: ZIDOVUDINE 300 MG TAB PO ×2 (09:12→21:05)
[2019-04-17] MEDS: FOLIC ACID 1 MG TAB PEG (09:13)
[2019-04-17] MEDS: ZINC SULFATE 220 MG CAP PEG (09:13)
[2019-04-17] MEDS: MULTIVITAMINS THERAPEUTIC TAB GTB (09:13)
[2019-04-17] MEDS: LORATADINE 10 MG TAB PO (09:13)
[2019-04-17] MEDS: MIDODRINE 5 MG TAB GTB ×3 (09:13→17:44)
[2019-04-17] MEDS: FLUCONAZOLE 100 MG TAB PEG (09:14)
[2019-04-17] MEDS: EMTRICITABINE/TENOFOVIR TAB PEG (09:14)
[2019-04-17] MEDS: BALSAM PERU/CASTOR OIL 60 GM TUBE TOP ×2 (09:23→21:06)
[2019-04-17] MEDS: ENOXAPARIN 30 MG/0.3 ML SYG SC (09:35)
[2019-04-17] MEDS: SODIUM CHLORIDE 1 GM TAB PO ×3 (09:56→21:05)
[2019-04-17 17:38] LABS: ADD UMIC YES; UR ASCORBIC ACID 40 mg/dL (NEGATIVE); UR BACTERIA FEW /HPF (NONE SEEN); UR BILIRUBIN (Dip) NEGATIVE (NEGATIVE); UR BLOOD (Dip) NEGATIVE (NEGATIVE); UR CLARITY SLIGHTLY CLOUDY (CLEAR); UR COLOR YELLOW (YELLOW); UR GLUCOSE (Dip) NEGATIVE (NEGATIVE); UR KETONES (Dip) NEGATIVE (NEGATIVE); UR LEUKOCYTE ESTERASE (Dip) 1+ Leu/ul (NEGATIVE); UR MUCUS FEW /HPF (NONE SEEN); UR NITRITE (Dip) POSITIVE (NEGATIVE); UR RBC 6 /HPF (0-5); UR SPECIFIC GRAVITY (Dip) 1.012 (1.003-1.030); UR TOTAL PROTEIN (Dip) NEGATIVE (NEGATIVE); UR UROBILINOGEN (Dip) NEGATIVE (NEGATIVE); UR WBC > 182 /HPF (0-5)
[2019-04-17] MEDS: FILGRASTIM-AAFI 300 MCG/0.5 ML SYRINGE SC (17:42)
[2019-04-18] MEDS: VANCOMYCIN HCL 250 MG/5ML POSYG PO ×4 (05:36→23:40)
[2019-04-18] MEDS: metroNIDAZOLE 500 MG TAB GTB ×3 (05:37→21:13)
[2019-04-18] MEDS: LANSOPRAZOLE 15 MG CAP GTB (05:37)
[2019-04-18] MEDS: INSULIN ASPART [NOVOLOG] 3 ML PEN SC ×3 (05:49→17:30)
[2019-04-18] MEDS: VALPROIC ACID LIQUID CUP 250 MG/5 ML CUP PEG ×2 (09:02→21:13)
[2019-04-18] MEDS: EMTRICITABINE/TENOFOVIR TAB PEG (09:02)
[2019-04-18] MEDS: LEVETIRACETAM (100 MG/ML) 5ML CUP GTB ×2 (09:02→21:13)
[2019-04-18] MEDS: FLUCONAZOLE 100 MG TAB PEG (09:03)
[2019-04-18] MEDS: SODIUM CHLORIDE 1 GM TAB PO ×3 (09:03→21:14)
[2019-04-18] MEDS: ZINC SULFATE 220 MG CAP PEG (09:03)
[2019-04-18] MEDS: ZIDOVUDINE 300 MG TAB PO ×2 (09:03→21:13)
[2019-04-18] MEDS: MEMANTINE 10 MG TAB PEG ×2 (09:04→21:14)
[2019-04-18] MEDS: ASCORBIC ACID 500 MG TAB PEG ×2 (09:04→21:13)
[2019-04-18] MEDS: QUETIAPINE 25 MG TAB PEG ×2 (09:05→21:14)
[2019-04-18] MEDS: MIDODRINE 5 MG TAB GTB ×3 (09:05→17:33)
[2019-04-18] MEDS: MULTIVITAMINS THERAPEUTIC TAB GTB (09:07)
[2019-04-18] MEDS: ACYCLOVIR 400 MG TAB PEG (09:07)
[2019-04-18] MEDS: LACTOBACILLUS RHAMNOSUS CAP PO ×3 (09:07→21:13)
[2019-04-18] MEDS: FOLIC ACID 1 MG TAB PEG (09:07)
[2019-04-18] MEDS: TRIMETHOPRIM/SULFAMETHOX (DS) TAB PEG (09:07)
[2019-04-18] MEDS: LORATADINE 10 MG TAB PO (09:07)
[2019-04-18] MEDS: COLLAGENASE 5 GM (UD JAR) TOP (09:08)
[2019-04-18] MEDS: THIAMINE 100 MG TAB PEG (09:08)
[2019-04-18] MEDS: ENOXAPARIN 30 MG/0.3 ML SYG SC (09:20)
[2019-04-18] MEDS: ONDANSETRON 4 MG INJ IV (09:20)
[2019-04-18] MEDS: BALSAM PERU/CASTOR OIL 60 GM TUBE TOP ×2 (09:24→21:15)
[2019-04-18] MEDS: METOCLOPRAMIDE 10 MG INJ IV (12:16)
[2019-04-18 15:55] LABS: HEMATOCRIT 30.1 % (37.0-47.0); HEMOGLOBIN 9.6 g/dl (12.0-16.0); MEAN CORPUSCULAR HEMOGLOBIN 28.4 pg (29.0-33.0); MEAN CORPUSCULAR HGB CONC 31.9 g/dl (32.0-37.0); MEAN CORPUSCULAR VOLUME 89.1 fl (82.0-101.0); MEAN PLATELET VOLUME 9.1 fl (7.4-10.4); PLATELET COUNT 496 10^3/UL (140-415); RED BLOOD COUNT 3.38 10^6/ul (4.20-5.40); RED CELL DISTRIBUTION WIDTH 17.8 % (11.5-14.5)
[2019-04-18 15:55] LABS: WHITE BLOOD COUNT 8.8 10^3/ul (4.8-10.8)
[2019-04-18 16:01] LABS: ADD MAN DIFF? YES; POSITIVE DIFF @See below
[2019-04-18 16:17] LABS: ALANINE AMINOTRANSFERASE 21 IU/L (13-69); ALBUMIN 3.3 g/dl (3.3-4.9); ALBUMIN/GLOBULIN RATIO 0.58; ALKALINE PHOSPHATASE 118 IU/L (42-121); ANION GAP 8 (5-13); ASPARTATE AMINO TRANSFERASE 36 IU/L (15-46); BILIRUBIN,INDIRECT 0.2 mg/dl (0-1.1); BILIRUBIN,TOTAL 0.2 mg/dl (0.2-1.3); BLOOD UREA NITROGEN 14 mg/dl (7-20); CALCIUM 8.6 mg/dl (8.4-10.2); CARBON DIOXIDE 23 mmol/L (21-31); CHLORIDE 101 mmol/L (97-110); Estimated GFR > 60 mL/min (>60); GLUCOSE 84 mg/dl (70-220); POTASSIUM 5.2 mmol/L (3.5-5.1); SODIUM 132 mmol/L (135-144); TOTAL PROTEIN 8.9 g/dl (6.1-8.1)
[2019-04-18] MEDS: FILGRASTIM-AAFI 300 MCG/0.5 ML SYRINGE SC (17:32)
[2019-04-18 18:25] LABS: ANISOCYTOSIS 2+ (0-0); BAND NEUTROPHILS #M 1.4 10^3/ul (0.0-0.6); BAND NEUTROPHILS % (M) 16 % (0-4); EOSINOPHILS % (M) 10 % (0-7); LYMPHOCYTES #M 2.3 10^3/ul (0.8-2.9); LYMPHOCYTES % (M) 27 % (15-51); MONOCYTE #M 0.4 10^3/ul (0.3-0.9); MONOCYTES % (M) 5 % (0-11); PLATELET ESTIMATE INCREASED; POIKILOCYTOSIS 2+ (0-0); POLYCHROMASIA 1+ (0-0); REACTIVE LYMPHOCYTES% (M) 1 % (0-0); SEG NEUT #M 3.8 10^3/ul (1.6-7.5); SEGMENTED NEUTROPHILS (M) % 42 % (39-77); SMUDGE%M 11 % (0-0)
[2019-04-19] MEDS: metroNIDAZOLE 500 MG TAB GTB ×3 (05:30→21:27)
[2019-04-19] MEDS: VANCOMYCIN HCL 250 MG/5ML POSYG PO ×3 (05:30→17:14)
[2019-04-19] MEDS: LANSOPRAZOLE 15 MG CAP GTB (05:30)
[2019-04-19 05:42] LABS: ABNORMAL IP MESSAGE 1; HEMATOCRIT 27.2 % (37.0-47.0); HEMOGLOBIN 8.7 g/dl (12.0-16.0); MEAN CORPUSCULAR HEMOGLOBIN 28.3 pg (29.0-33.0); MEAN CORPUSCULAR VOLUME 88.6 fl (82.0-101.0); PLATELET COUNT 474 10^3/UL (140-415); RED BLOOD COUNT 3.07 10^6/ul (4.20-5.40); RED CELL DISTRIBUTION WIDTH 17.7 % (11.5-14.5)
[2019-04-19 05:45] LABS: ADD MAN DIFF? YES; POSITIVE DIFF @See below
[2019-04-19] MEDS: INSULIN ASPART [NOVOLOG] 3 ML PEN SC ×4 (05:52→17:13)
[2019-04-19 06:11] LABS: ANION GAP 10 (5-13); BLOOD UREA NITROGEN 22 mg/dl (7-20); CALCIUM 8.4 mg/dl (8.4-10.2); CARBON DIOXIDE 22 mmol/L (21-31); CHLORIDE 104 mmol/L (97-110); CREATININE 0.86 mg/dl (0.44-1.00); Estimated GFR > 60 mL/min (>60); GLUCOSE 80 mg/dl (70-220); MAGNESIUM 1.8 mg/dl (1.7-2.5); PHOSPHORUS 3.9 mg/dl (2.5-4.9); POTASSIUM 4.1 mmol/L (3.5-5.1); SODIUM 136 mmol/L (135-144)
[2019-04-19 08:12] LABS: ANISOCYTOSIS 1+ (0-0); BAND NEUTROPHILS #M 2.4 10^3/ul (0.0-0.6); BAND NEUTROPHILS % (M) 22 % (0-4); EOSINOPHILS % (M) 10 % (0-7); LYMPHOCYTES #M 2.8 10^3/ul (0.8-2.9); LYMPHOCYTES % (M) 26 % (15-51); MONOCYTE #M 0.7 10^3/ul (0.3-0.9); MONOCYTES % (M) 7 % (0-11); PLATELET ESTIMATE NORMAL; SEGMENTED NEUTROPHILS (M) % 34 % (39-77); SMUDGE%M 27 % (0-0)
[2019-04-19] MEDS: COLLAGENASE 5 GM (UD JAR) TOP (09:21)
[2019-04-19] MEDS: LEVETIRACETAM (100 MG/ML) 5ML CUP GTB ×2 (09:22→20:58)
[2019-04-19] MEDS: ASCORBIC ACID 500 MG TAB PEG ×2 (09:22→20:58)
[2019-04-19] MEDS: VALPROIC ACID LIQUID CUP 250 MG/5 ML CUP PEG ×2 (09:22→20:58)
[2019-04-19] MEDS: ACYCLOVIR 400 MG TAB PEG (09:23)
[2019-04-19] MEDS: MULTIVITAMINS THERAPEUTIC TAB GTB (09:23)
[2019-04-19] MEDS: EMTRICITABINE/TENOFOVIR TAB PEG (09:23)
[2019-04-19] MEDS: FLUCONAZOLE 100 MG TAB PEG (09:23)
[2019-04-19] MEDS: ZIDOVUDINE 300 MG TAB PO ×2 (09:23→20:58)
[2019-04-19] MEDS: MIDODRINE 5 MG TAB GTB ×3 (09:23→17:14)
[2019-04-19] MEDS: LACTOBACILLUS RHAMNOSUS CAP PO ×2 (09:23→12:11)
[2019-04-19] MEDS: FOLIC ACID 1 MG TAB PEG (09:23)
[2019-04-19] MEDS: LORATADINE 10 MG TAB PO (09:24)
[2019-04-19] MEDS: QUETIAPINE 25 MG TAB PEG ×2 (09:24→20:58)
[2019-04-19] MEDS: ZINC SULFATE 220 MG CAP PEG (09:24)
[2019-04-19] MEDS: TRIMETHOPRIM/SULFAMETHOX (DS) TAB PEG (09:24)
[2019-04-19] MEDS: BALSAM PERU/CASTOR OIL 60 GM TUBE TOP ×2 (09:25→21:14)
[2019-04-19] MEDS: MEMANTINE 10 MG TAB PEG ×2 (09:25→20:59)
[2019-04-19] MEDS: THIAMINE 100 MG TAB PEG (09:25)
[2019-04-19] MEDS: ENOXAPARIN 30 MG/0.3 ML SYG SC (09:26)
[2019-04-19] MEDS: SODIUM CHLORIDE 1 GM TAB PO ×2 (12:10→14:55)
[2019-04-19] MEDS: FILGRASTIM-AAFI 300 MCG/0.5 ML SYRINGE SC (17:16)
[2019-04-19] MEDS: FOSFOMYCIN 3 GM PACKET PO (20:57)
[2019-04-19] MEDS: LACTOBACILLUS RHAMNOSUS CAP GTB (20:58)
[2019-04-19] MEDS: SODIUM CHLORIDE 1 GM TAB GTB (20:58)
[2019-04-20] MEDS: VANCOMYCIN HCL 250 MG/5ML POSYG PO ×5 (00:52→23:56)
[2019-04-20] MEDS: INSULIN ASPART [NOVOLOG] 3 ML PEN SC ×4 (05:27→17:28)
[2019-04-20] MEDS: metroNIDAZOLE 500 MG TAB GTB ×3 (05:28→21:13)
[2019-04-20] MEDS: LANSOPRAZOLE 15 MG CAP GTB (05:28)
[2019-04-20] MEDS: LORATADINE 10 MG TAB GTB (08:52)
[2019-04-20] MEDS: ZINC SULFATE 220 MG CAP PEG (08:52)
[2019-04-20] MEDS: TRIMETHOPRIM/SULFAMETHOX (DS) TAB PEG (08:52)
[2019-04-20] MEDS: QUETIAPINE 25 MG TAB PEG ×2 (08:52→21:13)
[2019-04-20] MEDS: MULTIVITAMINS THERAPEUTIC TAB GTB (08:52)
[2019-04-20] MEDS: ZIDOVUDINE 300 MG TAB PO ×2 (08:52→21:13)
[2019-04-20] MEDS: FLUCONAZOLE 100 MG TAB PEG (08:53)
[2019-04-20] MEDS: MEMANTINE 10 MG TAB PEG ×2 (08:53→21:13)
[2019-04-20] MEDS: SODIUM CHLORIDE 1 GM TAB GTB ×3 (08:53→22:15)
[2019-04-20] MEDS: LACTOBACILLUS RHAMNOSUS CAP GTB ×3 (08:53→21:13)
[2019-04-20] MEDS: LEVETIRACETAM (100 MG/ML) 5ML CUP GTB ×2 (08:53→21:12)
[2019-04-20] MEDS: THIAMINE 100 MG TAB PEG (08:54)
[2019-04-20] MEDS: COLLAGENASE 5 GM (UD JAR) TOP (08:54)
[2019-04-20] MEDS: VALPROIC ACID LIQUID CUP 250 MG/5 ML CUP PEG ×2 (08:54→21:13)
[2019-04-20] MEDS: MIDODRINE 5 MG TAB GTB ×3 (08:54→17:27)
[2019-04-20] MEDS: FOLIC ACID 1 MG TAB PEG (08:54)
[2019-04-20] MEDS: EMTRICITABINE/TENOFOVIR TAB PEG (08:54)
[2019-04-20] MEDS: ACYCLOVIR 400 MG TAB PEG (08:55)
[2019-04-20] MEDS: ASCORBIC ACID 500 MG TAB PEG ×2 (08:55→21:13)
[2019-04-20] MEDS: BALSAM PERU/CASTOR OIL 60 GM TUBE TOP ×2 (08:56→21:14)
[2019-04-20] MEDS: ENOXAPARIN 30 MG/0.3 ML SYG SC (08:58)
[2019-04-20 10:56] LABS: HEMATOCRIT 26.8 % (37.0-47.0); HEMOGLOBIN 8.4 g/dl (12.0-16.0); MEAN CORPUSCULAR HEMOGLOBIN 28.6 pg (29.0-33.0); MEAN CORPUSCULAR HGB CONC 31.3 g/dl (32.0-37.0); MEAN CORPUSCULAR VOLUME 91.2 fl (82.0-101.0); MEAN PLATELET VOLUME 8.9 fl (7.4-10.4); PLATELET COUNT 450 10^3/UL (140-415); RED BLOOD COUNT 2.94 10^6/ul (4.20-5.40); RED CELL DISTRIBUTION WIDTH 17.8 % (11.5-14.5)
[2019-04-20 10:56] LABS: WHITE BLOOD COUNT 15.1 10^3/ul (4.8-10.8)
[2019-04-20 10:57] LABS: ADD MAN DIFF? YES; POSITIVE DIFF @See below
[2019-04-20 12:07] LABS: ANISOCYTOSIS 1+ (0-0); BAND NEUTROPHILS % (M) 20 % (0-4); EOSINOPHILS % (M) 3 % (0-7); LYMPHOCYTES #M 2.4 10^3/ul (0.8-2.9); LYMPHOCYTES % (M) 16 % (15-51); MONOCYTE #M 0.4 10^3/ul (0.3-0.9); MONOCYTES % (M) 3 % (0-11); PLATELET ESTIMATE NORMAL; POIKILOCYTOSIS 1+ (0-0); PROMYELOCYTES #M 0.1 10^3/ul (0-0); PROMYELOCYTES % (M) 1 % (0-0); SEG NEUT #M 9.1 10^3/ul (1.6-7.5); SEGMENTED NEUTROPHILS (M) % 57 % (39-77); SMUDGE%M 3 % (0-0)
[2019-04-20] MEDS ORDERED: AMIKACIN IV PER PHARMACY XX (21:00)
[2019-04-20] MEDS: SOD CHLORIDE 0.9% IVPB (23:00)
[2019-04-20] MEDS: AMIKACIN IVPB (23:00)
[2019-04-21] MEDS: VANCOMYCIN HCL 250 MG/5ML POSYG PO ×4 (05:22→23:11)
[2019-04-21] MEDS: LANSOPRAZOLE 15 MG CAP GTB (05:22)
[2019-04-21] MEDS: metroNIDAZOLE 500 MG TAB GTB ×3 (05:22→21:22)
[2019-04-21 05:28] LABS: WHITE BLOOD COUNT 8.2 10^3/ul (4.8-10.8)
[2019-04-21 05:28] LABS: HEMATOCRIT 27.3 % (37.0-47.0); HEMOGLOBIN 8.5 g/dl (12.0-16.0); MEAN CORPUSCULAR HEMOGLOBIN 28.3 pg (29.0-33.0); MEAN CORPUSCULAR HGB CONC 31.1 g/dl (32.0-37.0); MEAN PLATELET VOLUME 8.8 fl (7.4-10.4); PLATELET COUNT 461 10^3/UL (140-415); RED CELL DISTRIBUTION WIDTH 17.8 % (11.5-14.5)
[2019-04-21] MEDS: INSULIN ASPART [NOVOLOG] 3 ML PEN SC ×5 (05:28→23:15)
[2019-04-21 05:30] LABS: POSITIVE DIFF @See below
[2019-04-21 05:31] LABS: ADD MAN DIFF? YES
[2019-04-21 05:56] LABS: ANION GAP 6 (5-13); BLOOD UREA NITROGEN 9 mg/dl (7-20); CALCIUM 8.7 mg/dl (8.4-10.2); CARBON DIOXIDE 24 mmol/L (21-31); CHLORIDE 114 mmol/L (97-110); CREATININE 0.42 mg/dl (0.44-1.00); Estimated GFR > 60 mL/min (>60); GLUCOSE 93 mg/dl (70-220); MAGNESIUM 1.6 mg/dl (1.7-2.5); PHOSPHORUS 1.9 mg/dl (2.5-4.9); POTASSIUM 3.9 mmol/L (3.5-5.1); SODIUM 144 mmol/L (135-144)
[2019-04-21 07:59] LABS: ANISOCYTOSIS 1+ (0-0); BAND NEUTROPHILS #M 0.2 10^3/ul (0.0-0.6); BAND NEUTROPHILS % (M) 3 % (0-4); BASOPHIL #M 0.2 10^3/ul (0.0-0.0); BASOPHILS % (M) 3 % (0-2); EOSINOPHILS % (M) 5 % (0-7); LYMPHOCYTES #M 2.7 10^3/ul (0.8-2.9); LYMPHOCYTES % (M) 33 % (15-51); MONOCYTE #M 0.2 10^3/ul (0.3-0.9); MONOCYTES % (M) 3 % (0-11); PLATELET ESTIMATE INCREASED; SEG NEUT #M 4.4 10^3/ul (1.6-7.5); SEGMENTED NEUTROPHILS (M) % 53 % (39-77); SMUDGE%M 7 % (0-0)
[2019-04-21] MEDS: SODIUM CHLORIDE 1 GM TAB GTB ×3 (09:07→21:22)
[2019-04-21] MEDS: VALPROIC ACID LIQUID CUP 250 MG/5 ML CUP PEG ×2 (09:07→21:22)
[2019-04-21] MEDS: COLLAGENASE 5 GM (UD JAR) TOP (09:07)
[2019-04-21] MEDS: ASCORBIC ACID 500 MG TAB PEG ×2 (09:07→21:23)
[2019-04-21] MEDS: ZIDOVUDINE 300 MG TAB PO ×2 (09:08→21:23)
[2019-04-21] MEDS: THIAMINE 100 MG TAB PEG (09:08)
[2019-04-21] MEDS: QUETIAPINE 25 MG TAB PEG ×2 (09:08→21:22)
[2019-04-21] MEDS: FOLIC ACID 1 MG TAB PEG (09:08)
[2019-04-21] MEDS: TRIMETHOPRIM/SULFAMETHOX (DS) TAB PEG (09:08)
[2019-04-21] MEDS: FLUCONAZOLE 100 MG TAB PEG (09:08)
[2019-04-21] MEDS: MEMANTINE 10 MG TAB PEG ×2 (09:08→21:23)
[2019-04-21] MEDS: LEVETIRACETAM (100 MG/ML) 5ML CUP GTB ×2 (09:08→21:22)
[2019-04-21] MEDS: LACTOBACILLUS RHAMNOSUS CAP GTB ×3 (09:09→21:22)
[2019-04-21] MEDS: LORATADINE 10 MG TAB GTB (09:09)
[2019-04-21] MEDS: EMTRICITABINE/TENOFOVIR TAB PEG (09:09)
[2019-04-21] MEDS: ACYCLOVIR 400 MG TAB PEG (09:09)
[2019-04-21] MEDS: MULTIVITAMINS THERAPEUTIC TAB GTB (09:09)
[2019-04-21] MEDS: ZINC SULFATE 220 MG CAP PEG (09:09)
[2019-04-21] MEDS: MIDODRINE 5 MG TAB GTB ×3 (09:09→17:22)
[2019-04-21] MEDS: MAGNESIUM SULFATE 2 GM/50 ML 50 ML IVPB (09:10)
[2019-04-21] MEDS: BALSAM PERU/CASTOR OIL 60 GM TUBE TOP ×2 (09:10→21:24)
[2019-04-21] MEDS: ENOXAPARIN 30 MG/0.3 ML SYG SC (09:11)
[2019-04-21 09:31] LABS: AMIKACIN RANDOM 12.4 mg/L
[2019-04-21] MEDS: SOD CHLORIDE 0.9% IVPB (21:30)
[2019-04-21] MEDS: AMIKACIN IVPB (21:30)
[2019-04-22 05:39] LABS: ADD MAN DIFF? NO
[2019-04-22 05:44] LABS: WHITE BLOOD COUNT 5.2 10^3/ul (4.8-10.8)
[2019-04-22 05:44] LABS: BASOPHIL # 0.1 10^3/ul (0.0-0.1); EOSINOPHILS # 0.6 10^3/ul (0.0-0.5); HEMATOCRIT 28.2 % (37.0-47.0); HEMOGLOBIN 8.7 g/dl (12.0-16.0); LYMPHOCYTES # 2.4 10^3/ul (0.8-2.9); LYMPHOCYTES % 46.5 % (15.0-51.0); MEAN CORPUSCULAR HEMOGLOBIN 27.8 pg (29.0-33.0); MEAN CORPUSCULAR HGB CONC 30.9 g/dl (32.0-37.0); MEAN CORPUSCULAR VOLUME 90.1 fl (82.0-101.0); MONOCYTE # 0.4 10^3/ul (0.3-0.9); MONOCYTES % 6.8 % (0.0-11.0); NEUTROPHIL # 1.7 10^3/ul (1.6-7.5); NEUTROPHILS % 33.5 % (39.0-77.0); PLATELET COUNT 430 10^3/UL (140-415); RED BLOOD COUNT 3.13 10^6/ul (4.20-5.40); RED CELL DISTRIBUTION WIDTH 18.5 % (11.5-14.5)
[2019-04-22] MEDS: LANSOPRAZOLE 15 MG CAP GTB (05:59)
[2019-04-22] MEDS: metroNIDAZOLE 500 MG TAB GTB ×3 (05:59→22:29)
[2019-04-22] MEDS: VANCOMYCIN HCL 250 MG/5ML POSYG PO ×4 (05:59→23:58)
[2019-04-22] MEDS: INSULIN ASPART [NOVOLOG] 3 ML PEN SC ×4 (06:00→23:57)
[2019-04-22 06:02] LABS: INR 1.13; PROTIME 14.6 Sec (11.9-14.9); PT RATIO 1.1
[2019-04-22 06:03] LABS: PARTIAL THROMBOPLASTIN TIME 36.9 Sec (23.0-35.0)
[2019-04-22 06:06] LABS: ALBUMIN 2.9 g/dl (3.3-4.9); ANION GAP 7 (5-13); BLOOD UREA NITROGEN 12 mg/dl (7-20); CALCIUM 8.4 mg/dl (8.4-10.2); CARBON DIOXIDE 23 mmol/L (21-31); CHLORIDE 111 mmol/L (97-110); CREATININE 0.42 mg/dl (0.44-1.00); GLUCOSE 91 mg/dl (70-220); MAGNESIUM 1.7 mg/dl (1.7-2.5); PHOSPHORUS 3.1 mg/dl (2.5-4.9); POTASSIUM 4.3 mmol/L (3.5-5.1); SODIUM 141 mmol/L (135-144)
[2019-04-22 06:18] LABS: ANION GAP 4 (5-13); BLOOD UREA NITROGEN 12 mg/dl (7-20); CALCIUM 8.5 mg/dl (8.4-10.2); CARBON DIOXIDE 24 mmol/L (21-31); CHLORIDE 113 mmol/L (97-110); CREATININE 0.42 mg/dl (0.44-1.00); Estimated GFR > 60 mL/min (>60); GLUCOSE 95 mg/dl (70-220); SODIUM 141 mmol/L (135-144)
[2019-04-22] MEDS: VALPROIC ACID LIQUID CUP 250 MG/5 ML CUP PEG ×2 (09:10→20:37)
[2019-04-22] MEDS: LEVETIRACETAM (100 MG/ML) 5ML CUP GTB ×2 (09:10→20:37)
[2019-04-22] MEDS: COLLAGENASE 5 GM (UD JAR) TOP (09:10)
[2019-04-22] MEDS: ENOXAPARIN 30 MG/0.3 ML SYG SC (09:10)
[2019-04-22] MEDS: ASCORBIC ACID 500 MG TAB PEG ×2 (09:11→20:38)
[2019-04-22] MEDS: FOLIC ACID 1 MG TAB PEG (09:11)
[2019-04-22] MEDS: MEMANTINE 10 MG TAB PEG ×2 (09:11→20:37)
[2019-04-22] MEDS: BALSAM PERU/CASTOR OIL 60 GM TUBE TOP ×2 (09:11→20:44)
[2019-04-22] MEDS: LACTOBACILLUS RHAMNOSUS CAP GTB ×3 (09:11→20:38)
[2019-04-22] MEDS: TRIMETHOPRIM/SULFAMETHOX (DS) TAB PEG (09:12)
[2019-04-22] MEDS: ACYCLOVIR 400 MG TAB PEG (09:12)
[2019-04-22] MEDS: QUETIAPINE 25 MG TAB PEG ×2 (09:12→20:38)
[2019-04-22] MEDS: ZIDOVUDINE 300 MG TAB PO ×2 (09:12→20:40)
[2019-04-22] MEDS: MULTIVITAMINS THERAPEUTIC TAB GTB (09:12)
[2019-04-22] MEDS: EMTRICITABINE/TENOFOVIR TAB PEG (09:12)
[2019-04-22] MEDS: LORATADINE 10 MG TAB GTB (09:12)
[2019-04-22] MEDS: FLUCONAZOLE 100 MG TAB PEG (09:12)
[2019-04-22] MEDS: ZINC SULFATE 220 MG CAP PEG (09:12)
[2019-04-22] MEDS: THIAMINE 100 MG TAB PEG (09:12)
[2019-04-22] MEDS: MIDODRINE 5 MG TAB GTB ×3 (09:13→16:22)
[2019-04-22] MEDS ORDERED: MIDAZOLAM 1 MG/ML 2 ML INJ (18:30)
[2019-04-22] MEDS ORDERED: FENTAnyl 50 MCG/ML VIAL (18:30)
[2019-04-22] MEDS: LIDOCAINE 1% (MPF) 30 ML INJ (19:01)
[2019-04-22] MEDS ORDERED: LIDOCAINE 2% (SDV) 5 ML INJ (19:12)
[2019-04-22] MEDS ORDERED: PROPOFOL 20 ML (19:12)
[2019-04-22] MEDS ORDERED: ONDANSETRON 4 MG INJ IV (19:30)
[2019-04-22] MEDS ORDERED: DIPHENHYDRAMINE 50 MG INJ IV (19:30)
[2019-04-22] MEDS ORDERED: FENTAnyl 50 MCG/ML VIAL IV (19:30)
[2019-04-22] MEDS: SOD CHLORIDE 0.9% IVPB (22:29)
[2019-04-22] MEDS: AMIKACIN IVPB (22:29)
[2019-04-23 05:24] LABS: ADD MAN DIFF? NO
[2019-04-23] MEDS: LANSOPRAZOLE 15 MG CAP GTB (05:32)
[2019-04-23] MEDS: metroNIDAZOLE 500 MG TAB GTB ×2 (05:32→13:58)
[2019-04-23] MEDS: VANCOMYCIN HCL 250 MG/5ML POSYG PO ×3 (05:32→17:58)
[2019-04-23] MEDS: INSULIN ASPART [NOVOLOG] 3 ML PEN SC ×3 (05:35→17:59)
[2019-04-23 05:43] LABS: WHITE BLOOD COUNT 3.4 10^3/ul (4.8-10.8)
[2019-04-23 05:43] LABS: ABNORMAL IP MESSAGE 1; BASOPHILS % 0.6 % (0.0-2.0); EOSINOPHILS # 0.4 10^3/ul (0.0-0.5); EOSINOPHILS % 11.9 % (0.0-7.0); HEMATOCRIT 25.1 % (37.0-47.0); HEMOGLOBIN 8.1 g/dl (12.0-16.0); LYMPHOCYTES % 57.8 % (15.0-51.0); MEAN CORPUSCULAR HEMOGLOBIN 28.1 pg (29.0-33.0); MEAN CORPUSCULAR HGB CONC 32.3 g/dl (32.0-37.0); MEAN CORPUSCULAR VOLUME 87.2 fl (82.0-101.0); MEAN PLATELET VOLUME 9.5 fl (7.4-10.4); MONOCYTE # 0.3 10^3/ul (0.3-0.9); MONOCYTES % 7.3 % (0.0-11.0); NEUTROPHIL # 0.7 10^3/ul (1.6-7.5); NEUTROPHILS % 21.5 % (39.0-77.0); PLATELET COUNT 354 10^3/UL (140-415); RED BLOOD COUNT 2.88 10^6/ul (4.20-5.40); RED CELL DISTRIBUTION WIDTH 17.8 % (11.5-14.5)
[2019-04-23 05:58] LABS: POSITIVE DIFF @See below
[2019-04-23 06:59] LABS: ALBUMIN 2.8 g/dl (3.3-4.9); ANION GAP 7 (5-13); BLOOD UREA NITROGEN 14 mg/dl (7-20); CALCIUM 8.6 mg/dl (8.4-10.2); CARBON DIOXIDE 23 mmol/L (21-31); CHLORIDE 108 mmol/L (97-110); CREATININE 0.38 mg/dl (0.44-1.00); GLUCOSE 84 mg/dl (70-220); MAGNESIUM 1.4 mg/dl (1.7-2.5); PHOSPHORUS 4.5 mg/dl (2.5-4.9); POTASSIUM 4.1 mmol/L (3.5-5.1); SODIUM 138 mmol/L (135-144)
[2019-04-23 07:30] LABS: ANISOCYTOSIS 1+ (0-0); BASOPHILS % (M) 1 % (0-2); EOSINOPHILS % (M) 6 % (0-7); LYMPHOCYTES #M 2.5 10^3/ul (0.8-2.9); LYMPHOCYTES % (M) 76 % (15-51); MONOCYTE #M 0.2 10^3/ul (0.3-0.9); MONOCYTES % (M) 6 % (0-11); PLATELET ESTIMATE NORMAL; REACTIVE LYMPHOCYTES% (M) 2 % (0-0); SEGMENTED NEUTROPHILS (M) % 9 % (39-77); SMUDGE%M 31 % (0-0)
[2019-04-23] MEDS: MAGNESIUM SULFATE 2 GM/50 ML 50 ML IVPB (08:43)
[2019-04-23] MEDS: LEVETIRACETAM (100 MG/ML) 5ML CUP GTB (08:44)
[2019-04-23] MEDS: VALPROIC ACID LIQUID CUP 250 MG/5 ML CUP PEG (08:44)
[2019-04-23] MEDS: QUETIAPINE 25 MG TAB PEG (08:44)
[2019-04-23] MEDS: THIAMINE 100 MG TAB PEG (08:44)
[2019-04-23] MEDS: MULTIVITAMINS THERAPEUTIC TAB GTB (08:44)
[2019-04-23] MEDS: ASCORBIC ACID 500 MG TAB PEG (08:44)
[2019-04-23] MEDS: FOLIC ACID 1 MG TAB PEG (08:44)
[2019-04-23] MEDS: LACTOBACILLUS RHAMNOSUS CAP GTB ×2 (08:44→12:18)
[2019-04-23] MEDS: ZINC SULFATE 220 MG CAP PEG (08:44)
[2019-04-23] MEDS: FLUCONAZOLE 100 MG TAB PEG (08:45)
[2019-04-23] MEDS: ACYCLOVIR 400 MG TAB PEG (08:45)
[2019-04-23] MEDS: LORATADINE 10 MG TAB GTB (08:45)
[2019-04-23] MEDS: ZIDOVUDINE 300 MG TAB PO (08:45)
[2019-04-23] MEDS: MEMANTINE 10 MG TAB PEG (08:45)
[2019-04-23] MEDS: TRIMETHOPRIM/SULFAMETHOX (DS) TAB PEG (08:45)
[2019-04-23] MEDS: MIDODRINE 5 MG TAB GTB ×3 (08:46→17:00)
[2019-04-23] MEDS: EMTRICITABINE/TENOFOVIR TAB PEG (09:27)
[2019-04-23] MEDS: COLLAGENASE 5 GM (UD JAR) TOP (09:29)
[2019-04-23] MEDS: BALSAM PERU/CASTOR OIL 60 GM TUBE TOP (09:29)
[2019-04-23] MEDS: ENOXAPARIN 30 MG/0.3 ML SYG SC (09:30)
== END 2019-04-23 18:00 | DRG 969 ==
LOC: TEL 03-16 00:53 → 5EC 03-26 04:32 → MS3 04-01 10:14 → E/R 11:10 → PP2 03-24 15:31 → 5EC 13:37
PROVIDERS: Internal Medicine
PROC: 0DH63UZ Insertion of Feeding Device into Stomach, Percutaneous Approach (ICD-10-PCS; principal; 2019-03-18 18:05)
PROC: 0T1B0ZD Bypass Bladder to Cutaneous, Open Approach (ICD-10-PCS; 2019-03-18 18:05)
PROC: 0T9 Urinary System, Drainage (ICD-10-PCS; 2019-03-18 18:05)
PROC: 30233N1 Transfusion of Nonautologous Red Blood Cells into Peripheral Vein, Percutaneous Approach (ICD-10-PCS; 2019-03-18 18:05)
DX: A41.9 Sepsis, unspecified organism (principal); E43 Unspecified severe protein-calorie malnutrition; B20 Human immunodeficiency virus [HIV] disease; T83.511A Infection and inflammatory reaction due to indwelling urethral catheter, initial encounter; J18.9 Pneumonia, unspecified organism; L89.153 Pressure ulcer of sacral region, stage 3; N39.0 Urinary tract infection, site not specified; E87.1 Hypo-osmolality and hyponatremia; A04.72 Enterocolitis due to Clostridium difficile, not specified as recurrent; R64 Cachexia; Z68.1 Body mass index [BMI] 19.9 or less, adult; R62.7 Adult failure to thrive; B96.20 Unspecified Escherichia coli [E. coli] as the cause of diseases classified elsewhere; B96.1 Klebsiella pneumoniae [K. pneumoniae] as the cause of diseases classified elsewhere; Z16.12 Extended spectrum beta lactamase (ESBL) resistance; D50.9 Iron deficiency anemia, unspecified; E86.0 Dehydration; E83.42 Hypomagnesemia; E83.39 Other disorders of phosphorus metabolism; E86.1 Hypovolemia; E16.2 Hypoglycemia, unspecified; E87.5 Hyperkalemia; F25.9 Schizoaffective disorder, unspecified; F41.9 Anxiety disorder, unspecified; F29 Unspecified psychosis not due to a substance or known physiological condition; G40.909 Epilepsy, unspecified, not intractable, without status epilepticus; I95.9 Hypotension, unspecified; J40 Bronchitis, not specified as acute or chronic; R00.1 Bradycardia, unspecified; R33.9 Retention of urine, unspecified; Z22.322 Carrier or suspected carrier of Methicillin resistant Staphylococcus aureus
CPT/HCPCS: 36415; 36430; 71045; 71270; 73130-RT; 74018; 74178; 76856; 80048; 80053; 80069; 80150; 80164; 81001; 81003; 82043; 82105; 82247; 82248; 82270; 82306; 82550; 82607; 82652; 82668; 82728; 82746; 82947; 82962; 83010; 83540; 83605; 83615; 83690; 83735; 83935; 83970; 84100; 84155; 84165; 84300; 84443; 84560; 84702; 85014; 85018; 85025; 85045; 85610; 85651; 85730; 86300; 86301; 86304; 86360; 86701; 86703; 86708; 86709; 86803; 86850; 86880; 86885; 86900; 86901; 86920; 87040-91; 87070; 87075; 87081; 87086; 87340; 92526; 92610; 93005; 93306; 97161; 97166; 99285-25